=== PATIENT | male | born 1940 | race Caucasian/White ===

== ENCOUNTER 2016-05-28 14:25 | Emergency (ER) | payer OTHER ==
[~2016-05-28] VITALS: Ht 180.3 cm; Wt 86.2 kg
[~2016-05-28 14:25] MED LIST: COLCHICINE0.6 MG PO; MOBIC7.5 MG PO; PREDNICOT20 MG PO; TRAMADOL50 MG PO
[2016-05-28] MEDS ORDERED: ATORVASTATIN CA80 M1 PO (15:11)
[2016-05-28] MEDS ORDERED: GLUCOPHAGE1000 M1 PO (15:11)
--- NOTE | 2016-05-28 15:11 | RADIOLOGY REPORT ---
EXAMINATION: XR ANKLE, RIGHT CLINICAL INFORMATION: Twisted right ankle. COMPARISON: Right foot radiographs 10/31/2015. TECHNIQUE: AP, lateral, and mortise views of the right ankle. FINDINGS: There is an acute nondisplaced horizontally oriented fracture through the medial malleolus and a nondisplaced obliquely oriented fracture through the lateral malleolus. No dislocation. This pattern of acute fractures is consistent with an eversion mechanism of injury. Mild associated soft tissue swelling. Minimal calcaneal spurring is visualized on lateral projection. IMPRESSION: There is an acute nondisplaced bimalleolar fracture consistent with an eversion mechanism of injury. No dislocation.
[2016-05-28] MEDS ORDERED: RANEXA1000 M1 PO (15:12)
[2016-05-28] MEDS ORDERED: ATENOLOL25 M1 PO (15:12)
[2016-05-28] MEDS ORDERED: BICALUTAMIDE50 M1 PO (15:13)
[2016-05-28] MEDS ORDERED: BAYER CHEWABLE81 MG PO (15:13)
[2016-05-28] MEDS ORDERED: PLAVIX75 M1 PO (15:13)
--- NOTE | 2016-05-28 15:15 | ED ANKLE/FOOT INJURY COMPLAINT ---
History of Present Illness General Chief Complaint: Foot or Ankle Injury Stated Complaint: R FT INJURY Source: patient, family Exam Limitations: no limitations Vital Signs & Intake/Output Vital Signs & Intake/Output ED Intake and Output 05/29 0000 05/28 1200 Intake Total Output Total Balance Patient 190 lb Weight Allergies Uncoded Allergies: INGREDIENT: NO KNOWN - NO KNOWN DRUG ALLERGY (05/04/10) Reconcile Medications Amlodipine Besylate 5 MG TABLET 1 TAB PO DAILY HEART HEALTH (Reported) Aspirin (Gricel Chewable Aspirin) 81 MG TAB.CHEW 1 TAB PO DAILY HEART HEALTH ( Reported) Atenolol 25 MG TABLET 1 TAB PO DAILY HEART HEALTH (Reported) Atorvastatin Calcium 80 MG TABLET 1 TAB PO DAILY HEART HEALTH (Reported) Bicalutamide 50 MG TABLET 1 TAB PO DAILY PROSTATE (Reported) Clopidogrel Bisulfate (Plavix) 75 MG TABLET 1 TAB PO DAILY HEART HEALTH ( Reported) Colchicine 0.6 MG TAB 1 TAB PO AD GOUT 1-2 TABS EVERY 1 HOUR FOR 7 HOURS UNTIL PAIN GOES AWAY OR THERE IS ANY N/V, DIARRHEA/ABDOMINAL PAIN Meloxicam (Mobic) 7.5 MG TAB 1 TAB PO DAILY gout Metformin HCl (Glucophage) 1,000 MG TABLET 1 TAB PO BID DM (Reported) Prednisone (Prednicot) 20 MG TAB 1 TAB PO DAILY GOUT Ranolazine (Ranexa) 1,000 MG TAB.ER.12H 1 TAB PO DAILY HEART HEALTH ( Reported) TRAMADOL HCL (Tramadol) 50 MG TAB 1 TAB PO Q8P PRN BREATH THROUGH PAIN Triage Note: PT STATES THAT HE TRIPPED GOING DOWN RAMP AT HOME AND THAT HE TWISTED HIS R ANKLE. PT AMBULATED TO TRIAGE WITH CANE, SWELLING NOTED. PT REFUSES PAIN MEDS AND ASSISTED INTO WHEEL CHAIR Triage Nurses Notes Reviewed? yes HPI: This patient is a 76-year-old male with a past medical history including diabetes and peripheral neuropathy resented to the emergency department today accompanied by his daughter for evaluation of right ankle pain. The patient reported that he was walking outside today when he slipped down a ramp and, "my foot went underneath me." He reported that he felt a, "crunch." The patient is denying any pain but reported, "I have neuropathy so I can't really feel anything." He reported swelling of his ankle. The patient denied any knee or hip pain. He denied any head strike or loss of consciousness. (DARRICK GOFF PA-C) Past History Travel History Traveled to [place] past 21 day No Medical History Any Pertinent Medical History? see below for history Neurological: NONE EENT: NONE Cardiovascular: hypertension, hyperlipidemia Respiratory: NONE Gastrointestinal: NONE Hepatic: NONE Renal: NONE Musculoskeletal: chronic back pain Psychiatric: NONE Endocrine: NONE Blood Disorders: NONE Cancer(s): colon/rectal cancer, prostate cancer, SKIN CANCER BDR/Reproductive: NONE Influenza Vaccine: 01/26/08 Surgical History Surgical History: non-contributory Psychosocial History Who do you live with Patient/Self Services at Home None What is your primary language Irish Tobacco Use: Never used ETOH Use: denies use Illicit Drug Use: denies illicit drug use Family History Hx Contributory? No (DARRICK GOFF PA-C) Review of Systems Review of Systems Constitutional: Reports: no symptoms. EENTM: Reports: no symptoms. Respiratory: Reports: no symptoms. Cardiovascular: Reports: no symptoms. GI: Reports: no symptoms. Musculoskeletal: Reports: see HPI. Skin: Reports: no symptoms. Neurological/Psychological: Reports: see HPI. All Other Systems: Reviewed and Negative (DARRICK GOFF PA-C) Physical Exam Physical Exam Leg/Knee/Thigh Left: normal range of motion, normal inspection Comments: Well-developed well-nourished person in no acute distress HEENT: Normal EENT exam, head normocephalic/atraumatic, moist mucous membranes Neck: Full range of motion Back: Normal inspection Respiratory: No respiratory distress. Speaking in full sentences Right ankle/foot: Edema noted to bilateral malleoli. No overlying ecchymosis or erythema. Decreased sensation to the foot. Dorsalis pedis and posterior tibialis pulses 1+. Capillary refill less than 2 seconds. Range of motion at the ankle limited due to pain. Mild tenderness to palpation over bilateral malleoli Neuro: Alert oriented x3, cranial nerves II through XII grossly intact. Skin: No appreciable rash on exposed skin, skin is warm and dry. Psych: Mood and affect is normal (DARRICK GOFF PA-C) Progress Differential Diagnosis: DVT, CHF, arterial insufficiency, cellulitis, septic arthritis, gout, fracture, dislocation, sprain, contusion, compartmental syndrome Plan of Care: 05/28/2016 3:49:31 PM: Discussed this patient with on-call orthopedist, Dr. Mcleod. He would like this patient in a posterior and U-splint. We will ambulate this patient as he has tolerance. If he is unable to tolerate ambulation in the splint, he may need to be admitted. Discussed this patient with Dr. Concepcion. 05/28/2016 5:32:46 PM: I again discussed this patient with Dr. Mcleod. He would like this patient to remain nonweightbearing. I discussed this with the patient and his daughter. The patient will be staying at home with his daughter instead of by himself. She would like to take him home this evening. I discussed the option for admission as this patient will have a hard time remaining nonweightbearing. She would like to take him home anyways. She will call Dr. Mcleod in the morning. She reported that they have crutches at home and he continues a urine also he does not need to get up to go to the bathroom. She reported that she will make sure that he remains nonweightbearing. Instructed her to return the patient to the emergency department if anything worsens. Diagnostic Imaging: Viewed by Me: Radiology Read. Discussed w/RAD: Radiology Read. Radiology Impression: PATIENT: MARTIN MALDONADO PRESENT AGE: 76 PATIENT ACCOUNT NO: [id number] : 40 LOCATION: [facility] ORDERING PHYSICIAN: MARIA VICTORIA HUBBARD DO SERVICE DATE: 05/28/16 EXAM TYPE: RAD - XRY-ANKLE 3 OR MORE VIEWS R EXAMINATION: XR ANKLE, RIGHT CLINICAL INFORMATION: Twisted right ankle. COMPARISON: Right foot radiographs 10/31/2015. TECHNIQUE: AP, lateral, and mortise views of the right ankle. FINDINGS: There is an acute nondisplaced horizontally oriented fracture through the medial malleolus and a nondisplaced obliquely oriented fracture through the lateral malleolus. No dislocation. This pattern of acute fractures is consistent with an eversion mechanism of injury. Mild associated soft tissue swelling. Minimal calcaneal spurring is visualized on lateral projection. IMPRESSION: There is an acute nondisplaced bimalleolar fracture consistent with an eversion mechanism of injury. No dislocation. DICTATED BY: JOHANA TABOR MD DATE/TIME DICTATED:1504 DATA ANALYST ETL DEVELOPER:CLAIRE DATE/TIME TRANSCRIBED:02/01/17 / 1505 CONFIDENTIAL, DO NOT COPY WITHOUT APPROPRIATE AUTHORIZATION. <Electronically signed in Other Vendor System> SIGNED BY: LEANDER IBARRA,JOHANA Delgado 05/28/16 0651 (DARRICK GOFF PA-C) Departure Departure Disposition: HOME OR SELF CARE Condition: Stable Clinical Impression Primary Impression: Bimalleolar ankle fracture Qualifiers: Encounter type: initial encounter Fracture type: closed Laterality: right Qualified Code: S82.841A - Displaced bimalleolar fracture of right lower leg, initial encounter for closed fracture Referrals: BLUE IBARRA,GARY KOWALSKI MD,JENNY Mason (PCP/Family) Additional Instructions: Please remain nonweightbearing; do not put weight on this foot at any time. Use your crutches at home if you need them. May take [id number] Tylenol for pain. Elevate your ankle when possible. Ice the area for 15-20 minutes, 3-4 times a day. You must keep the splint in place at all times. Do not get the splint wet. Please call Gary Mcleod MD first thing tomorrow morning to schedule a follow-up appointment. Return to the emergency department for any worsening symptoms or concerns. Departure Forms: Customer Survey General Discharge Information (DARRICK GOFF PA-C) PA/INVOICING MACHINE OPERATOR Co-Sign Statement Statement: ED Attending supervision documentation- [X] I saw and evaluated the patient. I have also reviewed all the pertinent lab results and diagnostic results. I agree with the findings and the plan of care as documented in the PA's/INVOICING MACHINE OPERATOR's documentation. [X] I have reviewed the ED Record and agree with the PA's/INVOICING MACHINE OPERATOR's documentation. [] Additions or exceptions (if any) to the PAs/INVOICING MACHINE OPERATOR's note and plan are summarized below: [] (CARLOS IBARRA,REEMA) Procedures Splinting Location: RIGHT ANKLE Manual Alignment Performed: No Hand-Made Type: orthoglass Splint: posterior walking, AND U-SPLINT Splint Applied By: splint applied by me Pre-Proc Neuro Vasc Exam: normal Post-Proc Neuro Vasc Exam: normal Progress: Patient tolerated the procedure well. (DARRICK GOFF PA-C)
[2016-05-28] MEDS ORDERED: AMLODIPINE BESYL5 M1 PO (15:16)
[2016-05-28 17:40] VITALS: BP 182/86
== END 2016-05-28 17:49 ==
LOC: ERH 14:25
DX: S82.841A Displaced bimalleolar fracture of right lower leg, initial encounter for closed fracture (principal); X58.XXXA Exposure to other specified factors, initial encounter
CPT/HCPCS: 73610-RT

== ENCOUNTER 2017-11-04 09:59 | Emergency (ER) | payer OTHER ==
[~2017-11-04] VITALS: Ht 180.3 cm; Wt 73.9 kg
[~2017-11-04 09:59] MED LIST changes: +AMLODIPINE BESYL5 M1 PO; +ATENOLOL25 M1 PO; +ATORVASTATIN CA80 M1 PO; +BAYER CHEWABLE81 MG PO; +BICALUTAMIDE50 M1 PO; +GLUCOPHAGE1000 M1 PO; +PLAVIX75 M1 PO; +RANEXA1000 M1 PO
--- NOTE | 2017-11-04 10:38 | ED GENERAL ADULT ---
History of Present Illness General Chief Complaint: General Adult Stated Complaint: PAIN IN BACK AND HIPS, SWOLLEN FEET Source: patient, old records Exam Limitations: no limitations Allergies Coded Allergies: aspirin (FEEL BAD 11/04/17) Reconcile Medications Atorvastatin Calcium 80 MG TABLET 1 TAB PO DAILY HEART HEALTH (Reported) Clopidogrel Bisulfate (Plavix) 75 MG TABLET 1 TAB PO DAILY HEART HEALTH ( Reported) Furosemide 20 MG TABLET 1 TAB PO DAILY WATER RETENTION (Reported) Gabapentin 600 MG TABLET 1 TAB PO TID PAIN (Reported) Lidocaine 5 % ADH..PATCH 1 PAT TOP DAILY PAIN (Reported) Lisinopril 2.5 MG TABLET 1 TAB PO DAILY HEART (Reported) Metformin HCl (Glucophage) 1,000 MG TABLET 1 TAB PO BID DM (Reported) Metoprolol Succinate 50 MG TAB.ER.24H 1 TAB PO DAILY HEART (Reported) Mirtazapine 15 MG TABLET 0.5 TAB PO QPM SLEEP (Reported) Nitroglycerin 0.4 MG TAB.SUBL 1 TAB SL DAILY PRN CHEST PAIN (Reported) 1st sign of attack; may repeat every 5 minutes until relief; if pain persists after 3 tablets in 15 minutes, prompt medical att Oxycodone HCl 10 MG TABLET 1 TAB PO BIDP PRN PAIN (Reported) Ranolazine (Ranexa) 1,000 MG TAB.ER.12H 1 TAB PO DAILY HEART HEALTH ( Reported) Tamsulosin HCl 0.4 MG CAP.ER.24H 1 CAP PO DAILY BPH (Reported) Triage Note: B/L LEG EDEMA X 2 WEEKS. STATES HE FEELS SOB ONCE IN A WHILE. PT ALSO C/O BURNING SENSATION IN HIS LOWER SPINE. DENIES RECENT INJURY. STATES WHEN HE WAS IN REHAB A FEW MONTHS AGO HE FELL BACK ON HIS HEAD AND NOW HE GETS DIZZY SPELLS ONCE IN A WHILE Triage Nurses Notes Reviewed? yes Onset: Gradual Duration: week(s): Timing: recent history Injury Environment: home Severity: moderate HPI: 77-year-old male with history of hypertension, CAD, chronic back pain presents emergency department complaining of swelling to her lower legs for the past few weeks. Patient states that he broke his right ankle several months ago and has been having issues with swelling since the fracture. Patient was seen orthopedic physician out of [place] who was checking his ankle with repeat x- rays and casting. Patient states that he stopped going to this doctor because he got tired of traveling so far and getting so many xrays and casts. Patient was at rehab in [facility], [place] for weeks and was discharged home a few weeks ago. Patient has visiting health aids and visiting PT. He states that he still cannot walk well with his walker despite continued PT. He has almost fallen several times. PAtient reports a fall while he was at rehab about 1 month ago, he fell backward out of his wheelchair and hit his head, declined medical evaulation at that time. The patient reports intermittent dizziness when standing since this injury. Patient also reports bilateral lower back pain. (Nichole Phillips) Vital Signs & Intake/Output Vital Signs & Intake/Output Vital Signs Date Time Temp Pulse Resp B/P B/P Pulse O2 O2 Flow FiO2 Mean Ox Delivery Rate 11/04 1416 97.7 66 20 120/70 99 Room Air 11/04 1200 97.7 65 20 167/76 99 Room Air 11/04 1005 97.7 71 20 103/69 97 Room Air (Maria Eugenia IBARRA,Bridger Carver) Past History Travel History Traveled to [facility] past 21 day No Medical History Any Pertinent Medical History? see below for history Neurological: NONE EENT: NONE Cardiovascular: CAD, hypertension, hyperlipidemia Respiratory: NONE Gastrointestinal: NONE Hepatic: NONE Renal: NONE Musculoskeletal: chronic back pain Psychiatric: NONE Endocrine: NONE Blood Disorders: NONE Cancer(s): colon/rectal cancer, prostate cancer, SKIN CANCER ACTIVITY SPECIALIST/Reproductive: NONE Surgical History Surgical History: non-contributory Psychosocial History Who do you live with Patient/Self Services at Home None What is your primary language Ethiopian Tobacco Use: Quit >30 days ago ETOH Use: occasional use Illicit Drug Use: denies illicit drug use Family History Hx Contributory? No (Nichole Phillips) Review of Systems Review of Systems Constitutional: Reports: no symptoms. EENTM: Reports: no symptoms. Respiratory: Reports: no symptoms. Cardiovascular: Reports: no symptoms. GI: Reports: no symptoms. Genitourinary: Reports: no symptoms. Musculoskeletal: Reports: see HPI. Skin: Reports: no symptoms. Neurological/Psychological: Reports: see HPI. Hematologic/Endocrine: Reports: no symptoms. Immunologic/Allergic: Reports: no symptoms. All Other Systems: Reviewed and Negative (Nichole Phillips) Physical Exam Physical Exam General Appearance: well developed/nourished, no apparent distress, alert, awake Head: atraumatic, normal appearance Eyes: Bilateral: normal appearance, PERRL, EOMI. Ears, Nose, Throat: normal pharynx, hearing grossly normal Neck: normal inspection, supple, full range of motion, no midline tenderness Respiratory: normal breath sounds, no respiratory distress, lungs clear Cardiovascular: regular rate/rhythm, normal peripheral pulses Peripheral Pulses: 2+ dorsalis pedis (R), 2+ dorsalis pedis (L) Back: normal inspection, normal range of motion, mild lumbar tenderness and bilateral lower back/sacral tenderness Extremities: moderate swelling to right lower leg and ankle, tenderness to calf mild swelling to left lower leg Neurologic/Psych: awake, alert, oriented x 3, crude tester II-XII nml as tested Skin: intact, normal color, warm/dry Core Measures ACS in differential dx? No CVA/TIA Diagnosis: No Sepsis Present: No Sepsis Focused Exam Completed? No (Alicia GOMEZ,Nichole Carmen) Progress Differential Diagnoses I considered the following diagnoses in my evaluation of the patient: [DVT, ICH, muscle strain, venous stasis, degenerative disc disease, electrolyte abnormality , anemia] Diagnostic Imaging: Viewed by Me: Radiology Read, CT Scan, Ultrasound. Discussed w/RAD: Radiology Read, CT Scan, Ultrasound. Radiology Impression: PATIENT: MARTIN MALDONADO PRESENT AGE: 77 PATIENT ACCOUNT NO: [id number] : 40 LOCATION: [facility] ORDERING PHYSICIAN: Nichole GOMEZ SERVICE DATE: 11/04/17 EXAM TYPE: RAD - XRY-AP PELVIS; XRY-LUMBOSACRAL SPINE 4 VIEWS EXAMINATION: XR PELVIS XR LUMBOSACRAL SPINE CLINICAL INFORMATION: Bilateral posterior hip pain. Evaluate for fracture. Lumbar tenderness. Evaluate for lumbar fracture, degenerative disc disease. COMPARISON: Lumbar spine CT, 12/22/2012 TECHNIQUE: Lumbosacral spine, 4 views Pelvis, AP view FINDINGS: Lumbosacral spine: Status post posterior instrumented fusion of L3-L5, L4 and L5 laminectomy and placement of intervertebral spacer/graft at L3-L4. Chronic multilevel disc degeneration, facet arthropathy and chronic, approximately 0.5 cm grade 1 anterolisthesis of L4 on L5. Chronic, minimal degenerative retrolisthesis at L5-S1. Findings include chronic moderate degenerative disc disease at L5-S1.The transpedicular screws and fusion rods at L3-L5 are intact. Posterolateral bone graft is noted. No acute fracture or traumatic subluxation in the degenerated, postoperative spine. Dense atherosclerotic calcification of the aorta abdominal aorta and iliac arteries and stenting of the right common iliac/external iliac arteries. Pelvis: The osseous pelvic ring is intact. No suspicious lytic or blastic bone lesion. Articular cartilage space of each hip is maintained. Mild degenerative subarticular sclerosis/osteophytosis of the hips. There are 3 intact cannulated fixation screws traversing the right femoral neck without acute fracture or femoral osteonecrosis. There are radiation therapy seeds of the prostate gland. Santos catheter projects over the midline of the lower pelvis. IMPRESSION: 1. No acute femoral fracture. 2. Multilevel facet arthropathy and disc degeneration of the lumbar spine, status post surgical spinal fusion at L3-L5. Spinal fusion hardware is intact. Within the lumbar spine, there is chronic grade 1 anterolisthesis at L4-L5 and chronic, minimal degenerative retrolisthesis at L5- S1. No acute fracture or traumatic subluxation. DICTATED BY: Ernesto Nguyen MD DATE/TIME DICTATED:11/04/171222 GAME DESIGN INSTRUCTOR:CLAIRE DATE/TIME TRANSCRIBED:11/04/171222 CONFIDENTIAL, DO NOT COPY WITHOUT APPROPRIATE AUTHORIZATION. <Electronically signed in Other Vendor System> SIGNED BY: Ernesto Nguyen MD 11/04/17 1233, PATIENT: MARTIN MALDONADO PRESENT AGE: 77 PATIENT ACCOUNT NO: [id number] : 40 LOCATION: [facility] ORDERING PHYSICIAN: Nichole GOMEZ SERVICE DATE: 11/04/17 EXAM TYPE: CAT - CT CERV SPINE WO IV CONTRAST; CT HEAD WO IV CONTRAST EXAMINATION: CT HEAD W/O IV CONTRAST CT CERVICAL SPINE W/O IV CONTRAST CLINICAL INFORMATION: Status post fall weeks ago with dizziness. Evaluate for intracranial hemorrhage and fracture. COMPARISON: C-spine CT, 12/22/2012 TECHNIQUE: Head - Contiguous axial imaging of the head was performed from the skull base to the vertex without the administration of intravenous contrast, and axial images are reconstructed at 0.625 mm, 2.5 mm and 5 mm slice thickness. Cervical spine - A volumetric, helical CT acquisition of the cervical spine was obtained without contrast; in addition to the standard set of axial images, multiplanar reformatted images were provided in the coronal and sagittal imaging planes. DLP : 914 mGy-cm (total) FINDINGS: HEAD: No evidence of intracranial hemorrhage, major vascular territory infarction, focal mass effect or midline shift. Phillip to white matter differentiation is well preserved. Atherosclerotic calcification of cavernous carotid arteries and vertebral arteries. There are no extra-axial fluid collections. Mild atrophy of cerebral hemispheres with commensurate prominence of ventricles and sulci. No hydrocephalus. The calvarium is intact and the visualized paranasal sinuses are clear. Chronic opacification of some of the left mastoid air cells. The temporomandibular joints are unremarkable. The visualized orbits and globes are intact. CERVICAL SPINE: Mild dextrocurvature and chronic loss of lordotic curvature of the cervical spine. The occipital condyles, C1 and C2 lateral masses, dens and atlantodental articulation are intact. Chronic degenerative osseous spurring and mild subcortical cystic change of the atlantodental articulation. There is calcium deposition (calcium pyrophosphate dihydrate crystal deposition) of the transverse ligament posterior to the dens. The vertebral body heights are maintained. There is chronic multilevel facet osteoarthritis, worst on the left at C2-C3, C3-C4 and C4-C5. Multilevel uncovertebral joint hypertrophy and chronic left-sided neural foraminal stenosis at C2-C3, C3-C4 and C4-C5. Chronic degenerative disc space narrowing with disc bulge and small posterior disc osteophyte complexes of C4- C5. At C5-C6, there is a chronic central disc herniation that chronically compresses the ventral surface of the cervical spinal cord. There is chronic, 0.2 cm anterolisthesis of C3 on C4, unchanged compared to 12/22/2012. There is ligamentum flavum hypertrophy at C5-C6 and C6-C7. No acute fracture, traumatic subluxation or prevertebral soft tissue swelling in the degenerated cervical spine. Within the right thyroid lobe, there is a stable 1 cm nodule with peripheral rim calcification. Atherosclerotic calcifications of carotid arteries. At the lung apices, posteriorly layering pleural effusions are seen ( left larger than right). IMPRESSION: 1. No acute intracranial pathology. 2. No acute fracture or traumatic subluxation in the degenerated cervical spine. 3. Of the multiple chronic findings in the cervical spine, abnormalities include an old central disc herniation at C5-C6. The herniated disc chronically compresses the ventral surface of the spinal cord at this level. Other chronic findings include multilevel facet arthropathy, uncovertebral joint hypertrophy and left- sided neural foraminal stenosis at C2-C3, C3-C4 and C4-C5. 4. The 1 cm rim calcified nodule of the right thyroid gland remains stable compared to 2012. 5. Bilateral pleural effusions. DICTATED BY: Ernesto Nguyen MD DATE/TIME DICTATED:11/04/171150 GAME DESIGN INSTRUCTOR:CLAIRE DATE/TIME TRANSCRIBED:1150 CONFIDENTIAL, DO NOT COPY WITHOUT APPROPRIATE AUTHORIZATION. < Electronically signed in Other Vendor System> SIGNED BY: Ernesto Nguyen MD 11/04/17 121, PATIENT: MARTIN MALDONADO PRESENT AGE: 77 PATIENT ACCOUNT NO: [id number] : 40 LOCATION: [facility] ORDERING PHYSICIAN: Nichole GOMEZ SERVICE DATE: 11/04/17 EXAM TYPE: US - US-EXT BILAT VENOUS DOPPLER EXAMINATION: US TRIPLEX OF LOWER EXTREMITIES, BILATERAL CLINICAL INFORMATION: Bilateral lower extremity edema COMPARISON: None TECHNIQUE : Color-flow triplex imaging with spectral analysis and compression Doppler were performed on the lower extremities. FINDINGS: Respiratory variation, normal compression and augmented flow are noted throughout the lower extremities. The visualized common femoral vein, superficial femoral vein, profunda femoral vein, popliteal vein and midcalf peroneal and posterior tibial venous segments show no evidence of deep venous thrombosis. There is a small amount of thrombus seen in the right great saphenous vein near the junction with no extension into the deep venous system. There is no Williamson's cyst. IMPRESSION: No evidence of deep venous thrombosis involving the bilateral lower extremities. Superficial thrombophlebitis with some thrombus in the right great saphenous vein without extension into the deep system. DICTATED BY: Ayan Thornton MD DATE/TIME DICTATED:11/04/171301 GAME DESIGN INSTRUCTOR:CLAIRE DATE/TIME TRANSCRIBED:1301 CONFIDENTIAL, DO NOT COPY WITHOUT APPROPRIATE AUTHORIZATION. < Electronically signed in Other Vendor System> SIGNED BY: Ayan Thornton MD 11/04/17 1316 CXR Impression: PATIENT: MARTIN MLADONADO PRESENT AGE: 77 PATIENT ACCOUNT NO: [id number] : 40 LOCATION: [facility] ORDERING PHYSICIAN: Nichole GOMEZ SERVICE DATE: 11/04/17-1037 EXAM TYPE: RAD - XRY-CHEST XRAY, TWO VIEWS EXAMINATION: XR CHEST CLINICAL INFORMATION: edema. Evaluate for CHF. COMPARISON: Previous chest x-ray November 2008 TECHNIQUE: 2 views of the chest were obtained. FINDINGS: The cardiac silhouette does not appear enlarged. There are post-CABG changes. Hilar and mediastinal contours are unremarkable. There is increased attenuation in the right upper lobe in the right paratracheal region and overlying the right anterior first rib questionable for pneumonitis or small pneumonia. Follow-up chest x-ray is recommended. If radiographic abnormality persists, follow-up chest CT scan should be considered. The lungs are otherwise clear. There is no pleural effusion. There are degenerative changes of the spine. There is a broken inferior median sternotomy wire.. IMPRESSION: No evidence of CHF. Increased attenuation in the right upper lobe questionable for pneumonitis or small pneumonia. Chest x-ray follow-up recommended. If radiographic abnormality persists, chest CT scan would be recommended. DICTATED BY: Xi Hubbard MD DATE/TIME DICTATED:11/04/171226 GAME DESIGN INSTRUCTOR:CLAIRE DATE/TIME TRANSCRIBED:11/04/171226 CONFIDENTIAL, DO NOT COPY WITHOUT APPROPRIATE AUTHORIZATION. <Electronically signed in Other Vendor System> SIGNED BY: Xi Hubbard MD 11/04/17 1233 Initial ED EKG: sinus rhythm @77bpm, ST changes with t wave inversions Prior EKG: changed (05/02/10) (Alicia GOMEZ,Nichole Carmen) Plan of Care: Orders Procedure Date/time Status TROPONIN LEVEL 11/04 1037 Complete COMPREHENSIVE METABOLIC PANEL 11/04 1037 Complete CBC WITHOUT DIFFERENTIAL 11/04 1037 Complete B-TYPE NATRIURETIC PEP (BNP) 11/04 1037 Complete EKG 11/04 1037 Active Laboratory Tests 11/04/17 1200: Anion Gap 12, Estimated GFR 45 L, BUN/Creatinine Ratio 15.3, Glucose 127 H, Calcium 9.0, Total Bilirubin 0.8, AST 40, ALT 31, Alkaline Phosphatase 106, Troponin I 0.11 *H, Vor-O-Jxenmaqvqgd Pept 02699 H, Total Protein 6.4, Albumin 3.2 L, Globulin 3.2, Albumin/Globulin Ratio 1.0 L, CBC w Diff NO MAN DIFF REQ, RBC 3.32 L, MCV 93.8, MCH 31.9 H, MCHC 34.0, RDW 16.4 H, MPV 7.0 L, Gran % 70.4, Lymphocytes % 18.7 L, Monocytes % 6.8, Eosinophils % 3.0, Basophils % 1.1 , Absolute Granulocytes 4.4, Absolute Lymphocytes 1.2, Absolute Monocytes 0.4, Absolute Eosinophils 0.2, Absolute Basophils 0.1 Patient had right bimalleolar ankle fracture on 05/28/16. He reports chronic issues relating to this fracture. Spoke with properties supervisor Dr. Mccullough regarding this patient - patient Was seen at [facility] about one month ago and admitted for pneumonia with positive troponin. At that time his troponin was 0.3. cr was 1.62. I discussed the patient's labs from today as well as his EKG findings. Dr. Mccullough sent a copy of patient's EKG from August 2017. There are ST changes in lateral leads today compared to EKG from August. Dr. Mccullough agrees the plan for having patient stay in the hospital for telemetry monitoring however I informed Dr. Mccullough at the patient's decision to sign out AMA. Dr. Mccullough states that the patient should follow-up in the office tomorrow if he refuses admission. Patient was seen and evaluated by Dr. Del Cid. Based on his EKG changes and abnormal labs he was informed that leaving AGAINST MEDICAL ADVICE could result in heart attack and . Patient understands the risks and chooses to leave the emergency department at this time. (Alicia GOMEZ,Nichole Carmen) (Maria Eugenia IBARRA,Bridger Carver) Departure Departure Disposition: LEFT AGAINST MEDICAL ADVICE Condition: Stable Clinical Impression Primary Impression: Pedal edema Secondary Impressions: Acute electrocardiogram changes, Elevated troponin Referrals: Miguel IBARRA,Supa Bryant MD,Sukumar Mason (PCP/Family) Additional Instructions: Your signing out AGAINST MEDICAL ADVICE. Follow-up with the properties supervisor tomorrow, call the office to make an appointment for tomorrow. Return if worsening symptoms or concerns. Please note that there might be incidental findings in your evaluation that are unrelated to the current emergency department visit. Please notify your primary care doctor about this emergency department visit in order to obtain and review all of the testing performed so that these incidental findings can be monitored as needed. If you had an x-ray performed, please understand that some fractures may not be seen on the initial set of x-rays. If your symptoms persist you might need a repeat set of x-rays to check for such a fracture. If you had a laceration evaluated, please understand that foreign bodies such as glass or wood may not be visible to the naked eye or on plain x-rays. If the wound becomes red, swollen, increasingly more painful or if there is any drainage from the wound, please have it reevaluated by a physician for the possibility of a retained foreign body. If you're unable to follow up as outlined in the discharge instructions please return to the emergency department. Thank you for choosing the [facility] Emergency Department for your care. It was a pleasure to serve you today. Departure Forms: Customer Survey General Discharge Information (Nichole Phillips) PA/VETERINARY ATTENDANT Co-Sign Statement Statement: ED Attending supervision documentation- [X] I saw and evaluated the patient. I have also reviewed all the pertinent lab results and diagnostic results. I agree with the findings and the plan of care as documented in the PA's/VETERINARY ATTENDANT's documentation. Patient presents for evaluation of primarily right knee pain among other issues. Physical examination reveals a comfortable appearing gentleman in no acute respiratory distress. I have had a lengthy discussion with this patient regarding his elevated troponin and its implications. Patient is aware that this might reflect an issue with his heart that could potentially lead to heart attack and . He remains adamant in discharge. [] I have reviewed the ED Record and agree with the PA's/VETERINARY ATTENDANT's documentation. [] Additions or exceptions (if any) to the PAs/VETERINARY ATTENDANT's note and plan are summarized below: [] (Maria Eugenia IBARRA,Bridger Carver) Critical Care Note Critical Care Note Critical Care Time: non-applicable (Nichole Phillips)
--- NOTE | 2017-11-04 12:11 | CT SCAN REPORT ---
EXAMINATION: CT HEAD W/O IV CONTRAST CT CERVICAL SPINE W/O IV CONTRAST CLINICAL INFORMATION: Status post fall weeks ago with dizziness. Evaluate for intracranial hemorrhage and fracture. COMPARISON: C-spine CT, 12/22/2012 TECHNIQUE: Head - Contiguous axial imaging of the head was performed from the skull base to the vertex without the administration of intravenous contrast, and axial images are reconstructed at 0.625 mm, 2.5 mm and 5 mm slice thickness. Cervical spine - A volumetric, helical CT acquisition of the cervical spine was obtained without contrast; in addition to the standard set of axial images, multiplanar reformatted images were provided in the coronal and sagittal imaging planes. DLP: 914 mGy-cm (total) FINDINGS: HEAD: No evidence of intracranial hemorrhage, major vascular territory infarction, focal mass effect or midline shift. Phillip to white matter differentiation is well preserved. Atherosclerotic calcification of cavernous carotid arteries and vertebral arteries. There are no extra-axial fluid collections. Mild atrophy of cerebral hemispheres with commensurate prominence of ventricles and sulci. No hydrocephalus. The calvarium is intact and the visualized paranasal sinuses are clear. Chronic opacification of some of the left mastoid air cells. The temporomandibular joints are unremarkable. The visualized orbits and globes are intact. CERVICAL SPINE: Mild dextrocurvature and chronic loss of lordotic curvature of the cervical spine. The occipital condyles, C1 and C2 lateral masses, dens and atlantodental articulation are intact. Chronic degenerative osseous spurring and mild subcortical cystic change of the atlantodental articulation. There is calcium deposition (calcium pyrophosphate dihydrate crystal deposition) of the transverse ligament posterior to the dens. The vertebral body heights are maintained. There is chronic multilevel facet osteoarthritis, worst on the left at C2-C3, C3-C4 and C4-C5. Multilevel uncovertebral joint hypertrophy and chronic left-sided neural foraminal stenosis at C2-C3, C3-C4 and C4-C5. Chronic degenerative disc space narrowing with disc bulge and small posterior disc osteophyte complexes of C4-C5. At C5-C6, there is a chronic central disc herniation that chronically compresses the ventral surface of the cervical spinal cord. There is chronic, 0.2 cm anterolisthesis of C3 on C4, unchanged compared to 12/22/2012. There is ligamentum flavum hypertrophy at C5-C6 and C6-C7. No acute fracture, traumatic subluxation or prevertebral soft tissue swelling in the degenerated cervical spine. Within the right thyroid lobe, there is a stable 1 cm nodule with peripheral rim calcification. Atherosclerotic calcifications of carotid arteries. At the lung apices, posteriorly layering pleural effusions are seen (left larger than right). IMPRESSION: 1. No acute intracranial pathology. 2. No acute fracture or traumatic subluxation in the degenerated cervical spine. 3. Of the multiple chronic findings in the cervical spine, abnormalities include an old central disc herniation at C5-C6. The herniated disc chronically compresses the ventral surface of the spinal cord at this level. Other chronic findings include multilevel facet arthropathy, uncovertebral joint hypertrophy and left-sided neural foraminal stenosis at C2-C3, C3-C4 and C4-C5. 4. The 1 cm rim calcified nodule of the right thyroid gland remains stable compared to 12/14/2012. 5. Bilateral pleural effusions.
[2017-11-04] MEDS ORDERED: TAMSULOSIN HCL0.4 M1 PO (12:14)
[2017-11-04] MEDS ORDERED: FUROSEMIDE20 M1 PO (12:14)
[2017-11-04] MEDS ORDERED: NITROGLYCERIN0.4 M1 SL (12:14)
[2017-11-04] MEDS ORDERED: GABAPENTIN600 M1 PO (12:15)
[2017-11-04] MEDS ORDERED: LISINOPRIL2.5 M1 PO (12:15)
[2017-11-04] MEDS ORDERED: LIDOCAINE1 EACH TOP (12:16)
[2017-11-04] MEDS ORDERED: OXYCODONE HCL10 M2 PO (12:16)
[2017-11-04] MEDS ORDERED: METOPROLOL SUCC50 M2 PO (12:18)
[2017-11-04] MEDS ORDERED: MIRTAZAPINE15 M2 PO (12:19)
[2017-11-04 12:24] LABS: ABSOLUTE BASOPHIL COUNT 0.1 /CUMM (0.0-0.2); ABSOLUTE EOSINOPHIL COUNT 0.2 /CUMM (0.0-0.7); ABSOLUTE GRANULOCYTE CT 4.4 /CUMM (1.4-6.5); ABSOLUTE LYMPH COUNT 1.2 /CUMM (1.2-3.4); ABSOLUTE MONOCYTE COUNT 0.4 /CUMM (0.10-0.60); BASOPHIL % 1.1 % (0.0-2.0); GRANULOCYTE % 70.4 % (42.2-75.2); HEMATOCRIT 31.1 % (42-52); MEAN CORPUSCULAR HGB 31.9 PG (27.0-31.0); MEAN CORPUSCULAR VOLUME 93.8 FL (80.0-94.0); PLATELET COUNT 515 /CUMM (130-400); RBC DISTRIBUTION WIDTH 16.4 % (11.5-14.5); RED BLOOD CELL CT 3.32 /CUMM (4.70-6.10); WHITE BLOOD CELL COUNT 6.2 /CUMM (4.8-10.8)
--- NOTE | 2017-11-04 12:33 | RADIOLOGY REPORT ---
EXAMINATION: XR CHEST CLINICAL INFORMATION: edema. Evaluate for CHF. COMPARISON: Previous chest x-ray November 2008 TECHNIQUE: 2 views of the chest were obtained. FINDINGS: The cardiac silhouette does not appear enlarged. There are post-CABG changes. Hilar and mediastinal contours are unremarkable. There is increased attenuation in the right upper lobe in the right paratracheal region and overlying the right anterior first rib questionable for pneumonitis or small pneumonia. Follow-up chest x-ray is recommended. If radiographic abnormality persists, follow-up chest CT scan should be considered. The lungs are otherwise clear. There is no pleural effusion. There are degenerative changes of the spine. There is a broken inferior median sternotomy wire.. IMPRESSION: No evidence of CHF. Increased attenuation in the right upper lobe questionable for pneumonitis or small pneumonia. Chest x-ray follow-up recommended. If radiographic abnormality persists, chest CT scan would be recommended.
--- NOTE | 2017-11-04 12:33 | RADIOLOGY REPORT ---
EXAMINATION: XR PELVIS XR LUMBOSACRAL SPINE CLINICAL INFORMATION: Bilateral posterior hip pain. Evaluate for fracture. Lumbar tenderness. Evaluate for lumbar fracture, degenerative disc disease. COMPARISON: Lumbar spine CT, 12/22/2012 TECHNIQUE: Lumbosacral spine, 4 views Pelvis, AP view FINDINGS: Lumbosacral spine: Status post posterior instrumented fusion of L3-L5, L4 and L5 laminectomy and placement of intervertebral spacer/graft at L3-L4. Chronic multilevel disc degeneration, facet arthropathy and chronic, approximately 0.5 cm grade 1 anterolisthesis of L4 on L5. Chronic, minimal degenerative retrolisthesis at L5-S1. Findings include chronic moderate degenerative disc disease at L5-S1.The transpedicular screws and fusion rods at L3-L5 are intact. Posterolateral bone graft is noted. No acute fracture or traumatic subluxation in the degenerated, postoperative spine. Dense atherosclerotic calcification of the aorta abdominal aorta and iliac arteries and stenting of the right common iliac/external iliac arteries. Pelvis: The osseous pelvic ring is intact. No suspicious lytic or blastic bone lesion. Articular cartilage space of each hip is maintained. Mild degenerative subarticular sclerosis/osteophytosis of the hips. There are 3 intact cannulated fixation screws traversing the right femoral neck without acute fracture or femoral osteonecrosis. There are radiation therapy seeds of the prostate gland. Santos catheter projects over the midline of the lower pelvis. IMPRESSION: 1. No acute femoral fracture. 2. Multilevel facet arthropathy and disc degeneration of the lumbar spine, status post surgical spinal fusion at L3-L5. Spinal fusion hardware is intact. Within the lumbar spine, there is chronic grade 1 anterolisthesis at L4-L5 and chronic, minimal degenerative retrolisthesis at L5-S1. No acute fracture or traumatic subluxation.
--- NOTE | 2017-11-04 13:16 | ULTRASOUND REPORT ---
EXAMINATION: US TRIPLEX OF LOWER EXTREMITIES, BILATERAL CLINICAL INFORMATION: Bilateral lower extremity edema COMPARISON: None TECHNIQUE: Color-flow triplex imaging with spectral analysis and compression Doppler were performed on the lower extremities. FINDINGS: Respiratory variation, normal compression and augmented flow are noted throughout the lower extremities. The visualized common femoral vein, superficial femoral vein, profunda femoral vein, popliteal vein and midcalf peroneal and posterior tibial venous segments show no evidence of deep venous thrombosis. There is a small amount of thrombus seen in the right great saphenous vein near the junction with no extension into the deep venous system. There is no Williamson's cyst. IMPRESSION: No evidence of deep venous thrombosis involving the bilateral lower extremities. Superficial thrombophlebitis with some thrombus in the right great saphenous vein without extension into the deep system.
[2017-11-04 14:16] VITALS: BP 120/70
== END 2017-11-04 14:52 | disposition left against medical advice (07) ==
LOC: ERH 09:59
PROVIDERS: Physician Assistant
DX: R60.9 Edema, unspecified (principal); R94.31 Abnormal electrocardiogram [ECG] [EKG]; R77.8 Other specified abnormalities of plasma proteins
CPT/HCPCS: 71046; 72110; 72170; 93005; 93010; 93970

== ENCOUNTER 2017-12-02 11:42 | Inpatient (IN) | payer OTHER ==
[~2017-12-02] VITALS: Ht 180.3 cm; Wt 86.3 kg
[~2017-12-02 11:42] MED LIST changes: +GABAPENTIN600 M1 PO; +LASIX80 M1 PO; +LIDOCAINE1 EACH TOP; +LISINOPRIL2.5 M1 PO; +METOPROLOL SUCC50 M2 PO; +MIRTAZAPINE15 M2 PO; +NITROGLYCERIN0.4 M1 SL; +OXYCODONE HCL10 M2 PO; +TAMSULOSIN HCL0.4 M1 PO
--- NOTE | 2017-12-02 11:49 | ED AMS/SEIZURE/WEAK/DIZZY ---
History of Present Illness General Chief Complaint: Seizure Stated Complaint: S/P NEW ONSET SEIZURE AND WEAKNESS Source: family, old records, EMS Exam Limitations: clinical condition Vital Signs & Intake/Output Vital Signs & Intake/Output Vital Signs Date Time Temp Pulse Resp B/P B/P Pulse O2 O2 Flow FiO2 Mean Ox Delivery Rate 12/02 1856 98.1 115 18 102/60 96 Room Air 12/02 1854 95 Room Air 12/02 1823 100 Room Air 12/02 1745 97.8 103 18 103/65 99 Room Air 12/02 1640 98.1 82 18 108/62 100 Room Air 12/02 1456 97.7 108 18 94/66 96 Room Air 12/02 1423 98 Room Air 12/02 1217 97.4 100 18 122/56 99 Room Air Allergies Coded Allergies: cefadroxil (Intermediate, NAUSEA 12/02/17) magnesium (Intermediate, DIARRHEA 12/02/17) Reconcile Medications Atorvastatin Calcium 80 MG TABLET 1 TAB PO DAILY HEART HEALTH (Reported) Clopidogrel Bisulfate (Plavix) 75 MG TABLET 1 TAB PO DAILY HEART HEALTH ( Reported) Furosemide (Lasix) 80 MG TABLET 1 TAB PO DAILY WATER RETENTION (Reported) Metformin HCl (Glucophage) 1,000 MG TABLET 1 TAB PO BID DM (Reported) Nitroglycerin 0.4 MG TAB.SUBL 1 TAB SL DAILY PRN CHEST PAIN (Reported) 1st sign of attack; may repeat every 5 minutes until relief; if pain persists after 3 tablets in 15 minutes, prompt medical att Oxycodone HCl 10 MG TABLET 1 TAB PO BIDP PRN PAIN (Reported) Ranolazine (Ranexa) 1,000 MG TAB.ER.12H 1 TAB PO DAILY HEART HEALTH ( Reported) Triage Nurses Notes Reviewed? yes Onset: Abrupt Timing: recent history Severity: severe Severity Numbers: 10 HPI: Patient is a 77-year-old male with a past medical history of hypertension, COLON cancer with colon resection, chronic back pain currently on opiates, hyperlipidemia, CAD, DVT with lower extremity stents currently on Plavix, and which old records indicate in October he was evaluated here at [facility] in which old records indicate that there was concerned of EKG at the nares and elevated troponin however patient left AGAINST MEDICAL ADVICE. Patient's history is limited due to clinical presentation however family is here stating that yesterday she was in his normal state health where he is noted to have a baseline of generalized weakness and is non-ambulatory and family has been concerned over the past week of intermittent visual hallucinations of seeing COBRA'S AND people that aren't there over the past few days symptoms have worsened patient's had decreased by mouth intake and generalized weakness and fatigue however this morning the daughter who lives upstairs came down to make patient breakfast however he was noted to still be sleeping in which she returned to the patient's bedroom and noted a 20 SECOND episode of tonic-clonic seizures patient called EMS EMS arrived on scene noted patient to be mildly responsive however no apneas noted blood sugar was 180 No extremity weakness or slurred speech (Darshan Coffman) Past History Travel History Traveled to [place] past 21 day No Medical History Any Pertinent Medical History? see below for history Neurological: NONE EENT: NONE Cardiovascular: CAD, hypertension, hyperlipidemia Respiratory: NONE Gastrointestinal: NONE Hepatic: NONE Renal: NONE Musculoskeletal: chronic back pain Psychiatric: NONE Endocrine: NONE Blood Disorders: NONE Cancer(s): colon/rectal cancer, prostate cancer, SKIN CANCER CALL PERSON/Reproductive: NONE Surgical History Surgical History: non-contributory Psychosocial History Who do you live with Patient/Self Services at Home None What is your primary language Turkish Family History Hx Contributory? No (Darshan Coffman) Review of Systems Review of Systems Constitutional: Reports: see HPI, malaise, weakness. EENTM: Reports: no symptoms. Respiratory: Reports: no symptoms. Cardiovascular: Reports: no symptoms. GI: Reports: no symptoms. Genitourinary: Reports: no symptoms. Musculoskeletal: Reports: no symptoms. Skin: Reports: no symptoms. Neurological/Psychological: Reports: see HPI, tonic-clonic seizures. Hematologic/Endocrine: Reports: no symptoms. Immunologic/Allergic: Reports: no symptoms. All Other Systems: Reviewed and Negative (Darshan Coffman) Physical Exam Physical Exam General Appearance: lethargic Head: atraumatic Eyes: Bilateral: PERRL, EOMI, other (PINPOINT PUPILS). Ears, Nose, Throat: normal ENT inspection, hearing grossly normal Respiratory: decreased breath sounds Cardiovascular: irregularly irregular Gastrointestinal: normal bowel sounds, soft, non-tender Rectal: heme negative stool Neurologic/Psych: disoriented x 3 Skin: normal color Comments: GAG REFLEX INTACT Patient has full active range of motion of bilateral upper extremities Bilateral lower extremity patient cannot resist against gravity Core Measures ACS in differential dx? Yes CVA/TIA Diagnosis No Sepsis Present: No Sepsis Focused Exam Completed? No (Luis GOMEZ,Darshan) Progress Differential Diagnosis: arrythmia, alcohol intoxication, anemia, benign positional vertigo, CVA/stroke, dehydration, drug intoxication, encephalitis, electrolyte imbalance, GI bleed, hypoglycemia, hypoxia, intracranial Hem., intracranial mass/tumor, labrynthitis, meningitis, Meniere's disease, migraine TAYLOR, multiple sclerosis, pneumonia, postural hypotension, presyncope, post- traumatic vertigo, sepsis, seizure disorder, subarachnoid Hem., UTI/pyelo, vertebrobasilar insuff Plan of Care: Orders Procedure Date/time Status MAGNESIUM 12/03 06 Active CBC WITHOUT DIFFERENTIAL 12/03 599 Active BASIC ELECTROLYTES PLUS BUN&CR 12/03 599 Active Nothing by Mouth 12/02 D Active Skin/Pressure Ulcer Assess (Sk 12/02 2006 Active BLOOD PRODUCT PICKUP 12/02 195 Active Weight 12/02 185 Active Vital Signs 12/02 185 Active Teach/Educate 12/02 185 Active Pain Treatment and Response 12/02 185 Active Nutritional Intake, Monitor 12/02 185 Active Isolation 12/02 1850 Active Intake & Output 12/02 185 Active Patient Care Conference 12/02 1850 Active Activity/Ambulation 12/02 1850 Active Intake & Output 12/02 1822 Active LEUKOCYTE POOR (PACKED CELLS) 12/02 1721 Active TYPE & SCREEN (NOT X-MATCH) 12/02 1719 Active LACTIC ACID 12/02 1536 Complete FingerStick- Glucose 12/02 1535 Active Pathway - chart 12/02 1533 Active House Staff 12/02 1533 Active Patient Data 12/02 1533 Active Code Status 12/02 1533 Active OCCULT BLOOD 12/02 1531 Active ELECTROENCEPHALOGRAM 12/02 1530 Active THYROID STIMULATING HORMONE 12/02 1530 Active GLYCOSYLATED HGB 12/02 1530 Active Santos, Insertion/Removal/Asses 12/02 1451 Active LACTIC ACID 12/02 1450 Active Patient Data 12/02 1448 Active Admit to inpatient 12/02 1447 Active Vital Signs 12/02 1447 Active Code Status 12/02 1447 Complete URINALYSIS 12/02 1431 Active AMMONIA 12/02 1200 Complete CULTURE,URINE 12/02 1151 Active EKG 12/02 1151 Active Telemetry/Low Heel Builder 12/02 1150 Complete BLOOD CULTURE 12/02 115 Active URINE DRUG SCREEN FOR ER ONLY 12/02 115 Active TROPONIN LEVEL 12/02 115 Complete PROLACTIN 12/02 115 Complete LACTIC ACID 12/02 1149 Complete COMPREHENSIVE METABOLIC PANEL 12/02 1149 Complete CREATINE PHOSPHOKINASE 12/02 1149 Complete CBC WITHOUT DIFFERENTIAL 12/02 1149 Complete VTE Mechanical Prophylaxis 12/02 UNK Active Telemetry/Low Heel Builder 12/02 UNK Active Seizure Precautions 12/02 UNK Active Luisa Coma Scale 12/02 UNK Active Elevate 12/02 UNK Active Current Medications Sig/Dalia Start time Last Medication Dose Stop Time Status Admin Ondansetron HCl 4 MG Q6P PRN 12/02 1730 AC (Zofran) Sodium Chloride 1,000 ML Q13H 12/02 1730 AC 12/02 (Normal Saline 0.9%) 1922 Insulin Aspart 0 TIDAC 12/02 1700 AC 12/02 (NovoLOG) 1802 Heparin Sodium 5,000 UNIT ONCE ONE 12/02 1615 CAN (Porcine) 12/02 1616 (Heparin Bolus) Heparin Sodium 0 .STK-MED ONE 12/02 1612 CAN (Porcine) Heparin Sodium 5,000 UNIT ONCE ONE 12/02 1600 CAN (Porcine) 12/02 1601 (Heparin Bolus) Laboratory Tests 12/02/17 1820: Lactic Acid 2.7 H 12/02/17 1820: Hemoglobin A1c Pending, TSH 3.570 12/02/17 1234: Ammonia < 9 L 12/02/17 1234: Anion Gap 16, Estimated GFR 12 L, BUN/Creatinine Ratio 15.9, Glucose 141 H, Lactic Acid 2.9 H, Calcium 8.5, Total Bilirubin 1.0, AST 29, ALT 17 L, Alkaline Phosphatase 126, Creatine Kinase 76, Troponin I 0.08, Total Protein 6.5 , Albumin 3.2 L, Globulin 3.3, Albumin/Globulin Ratio 1.0 L, Prolactin 46.9 H , CBC w Diff MAN DIFF ORDERED, RBC 2.78 L, MCV 93.9, MCH 31.9 H, MCHC 33.9, RDW 15.7 H, MPV 7.0 L, Gran % 92.5 H, Lymphocytes % 5.2 L, Monocytes % 2.1, Eosinophils % 0, Basophils % 0.2, Absolute Granulocytes 7.2 H, Absolute Lymphocytes 0.4 L, Absolute Monocytes 0.2, Absolute Eosinophils 0, Absolute Basophils 0, Platelet Estimate VERIFIED BY SMEAR, Polychromasia 1+, Anisocytosis 1+ Microbiology 12/02 1314 BLOOD: Blood Culture - RECD 12/02 1234 BLOOD: Blood Culture - RECD 12/02 1151 URINE ROUT: Urine Culture - COLB Patient upon initial presentation is noted to be lethargic and following minimal commands appropriately however after possibly 5 minutes patient's clinical presentation has improved patient is answering questions more appropriately No facial droop noted no unilateral extremity weakness noted Patient is alert and oriented 1 Seizure pads were placed to patient's bed Patient was continued with oxygen supplementation EKG does show concerns of atrial fibrillation at 77 bpm discussed patient with head of quality Dr. Mojica in which old records indicate there is no history of atrial fibrillation in which they advised to administer heparin with no contraindication noted CT scan of the head shows no concerns of bleed heparin was not administered until the CT scan result of chest and abdomen showing no contour dictation of the heparin No concerns of acute bleeding, heparin was administered, discussed with patient and family members the CT scan results they were given copies for concerns of metastatic disease. Diagnostic Imaging: Viewed by Me: CT Scan. Radiology Impression: acute abnormality Initial ED EKG: AFIB (93 BPM), nonspecific ST abnormalities Comments: PATIENT: MARTIN MALDONADO PRESENT AGE: 77 PATIENT ACCOUNT NO: [id number] : 40 LOCATION: [facility] ORDERING PHYSICIAN: Darshan GOMEZ SERVICE DATE: 12/02/17-1150 EXAM TYPE: CAT - CT HEAD WO IV CONTRAST EXAMINATION: CT HEAD WITHOUT CONTRAST CLINICAL INFORMATION: Acute mental status change. Witnessed seizure. COMPARISON: CT scan of the head dated 11/04/2017. TECHNIQUE: Contiguous axial imaging was performed from the skull base to vertex without intravenous administration of contrast. DLP: 622.71 mGy-cm FINDINGS: There is no evidence of acute intracranial hemorrhage or territorial infarction. No abnormal mass effect or midline shift is seen. Phillip to white matter differentiation is well preserved. No extra-axial fluid collections are identified. The ventricles and sulci are mildly enlarged, consistent with involutional changes. Mild periventricular deep white matter low-attenuation is seen, consistent with ischemic small vessel disease. Dense calcification of the vertebral arteries and the carotid siphons are seen. The osseous structures and soft tissues are normal. The mastoid air cells and visualized portions of the paranasal sinuses are well aerated. IMPRESSION: Unchanged appearance of the head with no acute intracranial pathology seen. DICTATED BY: Clary Zuleta MD DATE/TIME DICTATED:12/02/17 142 ADULT LITERACY TEACHER:CLAIRE DATE/TIME TRANSCRIBED:12/02/17 / (Darshan Coffman) Departure Departure Disposition: STILL A PATIENT Condition: Guarded Clinical Impression Primary Impression: Tonic clonic seizures Secondary Impressions: AASHISH (acute kidney injury), Lactic acid acidosis, Metastasis, New onset a-fib Referrals: Annette IBARRA,Sukumar Mason (PCP/Family) Departure Forms: Customer Survey General Discharge Information (Darshan Coffman) Admission Note Spoke With: Erlin Wilson MD Documentation of Exam: Documentation of any treatments & extenuating circumstances including Concerns Regarding Discharge (functional status, medication knowledge or non-compliance, living conditions, etc.) that warrant an admission rather than observation: [The patient is being admitted for neurology consultation, neuro checks every 6 hours , titration of anticonvulsants, consider MRI,] I saw and personally examined the patient and I agree with the PAs findings. He was cachectic but in no acute distress on my evaluation. PA/BULLET LUBRICATING MACHINE OPERATOR Co-Sign Statement Statement: ED Attending supervision documentation- [x] I saw and evaluated the patient. I have also reviewed all the pertinent lab results and diagnostic results. I agree with the findings and the plan of care as documented in the PA's/BULLET LUBRICATING MACHINE OPERATOR's documentation. [] I have reviewed the ED Record and agree with the PA's/BULLET LUBRICATING MACHINE OPERATOR's documentation. [] Additions or exceptions (if any) to the PAs/BULLET LUBRICATING MACHINE OPERATOR's note and plan are summarized below: [] (Bridger Atkinson DO) Critical Care Note Critical Care Note Critical Care Time: 30-74 min (Darshan Coffman)
[2017-12-02 12:52] LABS: ABSOLUTE BASOPHIL COUNT 0 /CUMM (0.0-0.2); ABSOLUTE EOSINOPHIL COUNT 0 /CUMM (0.0-0.7); ABSOLUTE GRANULOCYTE CT 7.2 /CUMM (1.4-6.5); ABSOLUTE LYMPH COUNT 0.4 /CUMM (1.2-3.4); ABSOLUTE MONOCYTE COUNT 0.2 /CUMM (0.10-0.60); BASOPHIL % 0.2 % (0.0-2.0); EOSINOPHIL % 0 % (0-5); GRANULOCYTE % 92.5 % (42.2-75.2); HEMATOCRIT 26.1 % (42-52); MEAN CORPUSCULAR HGB 31.9 PG (27.0-31.0); MEAN CORPUSCULAR HGB CONC 33.9 G/DL (33.0-37.0); MEAN CORPUSCULAR VOLUME 93.9 FL (80.0-94.0); PLATELET COUNT 479 /CUMM (130-400); RBC DISTRIBUTION WIDTH 15.7 % (11.5-14.5); RED BLOOD CELL CT 2.78 /CUMM (4.70-6.10); WHITE BLOOD CELL COUNT 7.8 /CUMM (4.8-10.8)
--- NOTE | 2017-12-02 14:34 | CT SCAN REPORT ---
EXAMINATION: CT HEAD WITHOUT CONTRAST CLINICAL INFORMATION: Acute mental status change. Witnessed seizure. COMPARISON: CT scan of the head dated 11/04/2017. TECHNIQUE: Contiguous axial imaging was performed from the skull base to vertex without intravenous administration of contrast. DLP: 622.71 mGy-cm FINDINGS: There is no evidence of acute intracranial hemorrhage or territorial infarction. No abnormal mass effect or midline shift is seen. Phillip to white matter differentiation is well preserved. No extra-axial fluid collections are identified. The ventricles and sulci are mildly enlarged, consistent with involutional changes. Mild periventricular deep white matter low-attenuation is seen, consistent with ischemic small vessel disease. Dense calcification of the vertebral arteries and the carotid siphons are seen. The osseous structures and soft tissues are normal. The mastoid air cells and visualized portions of the paranasal sinuses are well aerated. IMPRESSION: Unchanged appearance of the head with no acute intracranial pathology seen.
--- NOTE | 2017-12-02 15:29 | History & Physical ---
Tamia Pool MD 12/02/17 1516: General Information and HPI MD Statement: I have seen and personally examined MARTIN MALDONADO and documented this H&P. The patient is a 77 year old M who presented with a patient stated chief complaint of [seizures]. Source of Information: family, old records Exam Limitations: clinical condition History of Present Illness: Patient is a 77-year-old male EHSAN from home with an episode of tonic-clonic activity witnessed by the daughter. Most of the history is taken from the daughter as the patient was feeling very sick. According to the daughter patient was losing his weight since last 1 year. Since last 6 months he is wheelchair-bound and on Santos catheter. Since last 3-4 weeks he is very anorexic and having nausea and vomiting intermittently. It got worse since last 2 or 3 days. Yesterday night he was complaining of pain and stiffness. She gave him 1 tablet of 10 mg of Percocet. He slept all over the night. In the morning he did not wake up early. Later in the day around 02-04, when daughter, went to see him downstairs he was having tonic and clonic movements all over the body along with up rolling of eyes and frothing from the mouth. It was lasted for around 30 seconds. They called the ambulance and brought him to the hospital.At the time of presentation patient was minimally responsive to painful stimuli, his SPO2 was 99% on room air. EKG did show evidence of atrial fibrillation and wide QRS complex. Patient had indwelling Santos catheter with dark and cloudy urine. It was changed in ED. He was on multiple antihypertensive medication but recently, a week ago was seen by primary care provider and found to have low blood pressure and CHF. Antihypertensive was stopped and he was given tablet Lasix 80 mg daily. According to the family patient was having history of type 2 diabetes previously on multiple medication and now it was decreased down to tablet metformin thousand milligrams twice daily. Past medical history - Type 2 diabetes on metformin Hypertension, not on antihypertensive Hyperlipidemia on atorvastatin Coronary artery disease, inferior wall [place], CABG 2002, cardiac catheterization 2006, History of prostate cancer; 30 years, status post chemotherapy and seats following Dr. Saenz and Dr. Ernst has recently; cystoscopy on May 2017. Was on antiandrogen every 2 years History of colon cancer; status post laparoscopic sigmoid resection 2010; following Dr. Honeycutt, had last colonoscopy May 2017. History of multiple disc repair at L4/L5 in November 2001. History of bilateral knee arthroplasty. Primary care provider -Stacia personal history-he is wheelchair-bound, lives with her daughter, conscious cooperative, ex-smoker, drinks beer. Family history-diabetes and brother, mother, sister. Allergies/Medications Allergies: Coded Allergies: cefadroxil (Intermediate, NAUSEA 12/02/17) magnesium (Intermediate, DIARRHEA 12/02/17) Home Med list Atorvastatin Calcium 80 MG TABLET 1 TAB PO DAILY HEART HEALTH (Reported) Clopidogrel Bisulfate (Plavix) 75 MG TABLET 1 TAB PO DAILY HEART HEALTH ( Reported) Furosemide (Lasix) 80 MG TABLET 1 TAB PO DAILY WATER RETENTION (Reported) Metformin HCl (Glucophage) 1,000 MG TABLET 1 TAB PO BID DM (Reported) Nitroglycerin 0.4 MG TAB.SUBL 1 TAB SL DAILY PRN CHEST PAIN (Reported) 1st sign of attack; may repeat every 5 minutes until relief; if pain persists after 3 tablets in 15 minutes, prompt medical att Oxycodone HCl 10 MG TABLET 1 TAB PO BIDP PRN PAIN (Reported) Ranolazine (Ranexa) 1,000 MG TAB.ER.12H 1 TAB PO DAILY HEART HEALTH ( Reported) Past History Travel History Traveled to [place] past 21 day No Medical History Neurological: NONE EENT: NONE Cardiovascular: CAD, hypertension, hyperlipidemia Respiratory: NONE Gastrointestinal: NONE Hepatic: NONE Renal: NONE Musculoskeletal: chronic back pain Psychiatric: NONE Endocrine: NONE Blood Disorders: NONE Cancer(s): colon/rectal cancer, prostate cancer, SKIN CANCER 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 GI: Reports: abdominal pain, bloating. Musculoskeletal: Reports: back pain, joint pain. Neurological/Psychological: Reports: anxiety. Exam & Diagnostic Data Last 24 Hrs of Vital Signs/I&O Vital Signs Date Time Temp Pulse Resp B/P B/P Pulse O2 O2 Flow FiO2 Mean Ox Delivery Rate 12/02 1823 100 Room Air 12/02 1745 97.8 103 18 103/65 99 Room Air 12/02 1640 98.1 82 18 108/62 100 Room Air 08/08 1456 97.7 108 18 94/66 96 Room Air 12/02 1423 98 Room Air 12/02 1217 97.4 100 18 122/56 99 Room Air Intake & Output 12/02 1600 12/02 0800 12/02 0000 Intake Total Output Total Balance Patient 72.575 kg Weight Weight Estimated Measurement Method Physical Exam General Appearance Alert, Oriented X3, Cooperative, No Acute Distress Neck Supple, No JVD Cardiovascular Normal S1, Normal S2 Lungs Clear to Auscultation, Normal Air Movement Abdomen Soft, No Tenderness Extremities No Clubbing, No Cyanosis, edema in legs Vascular Normal Pulses, Pulses Symmetrical Last 24 Hrs of Labs/Donell: Laboratory Tests 12/02/17 1234: Ammonia < 9 L 12/02/17 123: Anion Gap 16, Estimated GFR 12 L, BUN/Creatinine Ratio 15.9, Glucose 141 H, Lactic Acid 2.9 H, Calcium 8.5, Total Bilirubin 1.0, AST 29, ALT 17 L, Alkaline Phosphatase 126, Creatine Kinase 76, Troponin I 0.08, Total Protein 6.5 , Albumin 3.2 L, Globulin 3.3, Albumin/Globulin Ratio 1.0 L, Prolactin 46.9 H , CBC w Diff MAN DIFF ORDERED, RBC 2.78 L, MCV 93.9, MCH 31.9 H, MCHC 33.9, RDW 15.7 H, MPV 7.0 L, Gran % 92.5 H, Lymphocytes % 5.2 L, Monocytes % 2.1, Eosinophils % 0, Basophils % 0.2, Absolute Granulocytes 7.2 H, Absolute Lymphocytes 0.4 L, Absolute Monocytes 0.2, Absolute Eosinophils 0, Absolute Basophils 0, Platelet Estimate VERIFIED BY SMEAR, Polychromasia 1+, Anisocytosis 1+ Microbiology 12/02 1314 BLOOD: Blood Culture - RECD 12/02 1234 BLOOD: Blood Culture - RECD 12/02 1151 URINE ROUT: Urine Culture - ORD Assessment/Plan Assessment: Patient is a 77-year-old male EHSAN from home with an episode of tonic-clonic activity witnessed by the daughter. Vital signs at the time of admission-temperature 97.4, pulse 100, respiratory rate 18, blood pressure 100/56, SPO2 99% on room air. Blood workup showed-hemoglobin 8.9, hematocrit 26.1, platelet count 479, granulocyte 92.5, sodium 133, potassium 5.0, chloride 97, carbon DEXA 19, anion gap 16, BUN 73, creatinine 4.6, GFR 12, glucose 141, lactic acid 2.9, AST 29, ALT 17, albumin 3.2, prolactin 46.9, U tox/urine is pending. CT scan of the head -Unchanged appearance of the head with no acute intracranial pathology seen. CT scan of the chest and abdomen and pelvis - * Abnormal extensive retroperitoneal soft tissue mass is seen encasing the aorta and IVC, causing obstruction of the left mid ureter and resultant moderate left- sided hydroureteronephrosis. * Multiple bilateral irregularly shaped and variably sized nodules and masses are seen in the lungs bilaterally, suspicious for metastatic disease * matted retroperitoneal adenopathy Patient patient was given 3 L of normal saline in ED. he was constantly vomiting , and vomitus was having blood. The prescribed injection Zofran without any benefit. We kept the patient n.p.o, and admitted to telemetry floor for further evaluation and management. Assessment and plan- New onset seizure - * CT scan of the head and MRI are normal for any metastatic lesion. * Discussed with Dr. Melendez over the phone advice for injection Keppra 500 mg IV twice daily * She also advised that patient may need LP to evaluate for possible metastasis ? Atrial fibrillation with Wide QRS and IVCD - * We will admit the patient to telemetry floor. * Will do continuous telemetry monitoring * we will consider cardiology evaluation tomorrow Upper GI bleed -coffee-ground emesis * Patient was continuously having nausea * He was started on heparin which we stopped after he found having coffee-ground emesis * Injection Zofran was given and started on injection Zofran 4 mg IV every 6 hourly * Keep n.p.o. * Injection Protonix 40 mg IV twice daily * He was given 3 L of normal saline in the ED and will continue IV 100 cc/h. He also advised for 1 unit of blood transfusion and if needed then more. * Type and crossmatch * CBC every 6 hourly untill stabilize * Watch for the bleeding * Vital every shift * If patient get unstable please call GI * Discussed with Dr. Malik over the phone, he does think that patient doesnt need urgent endoscopy though should be on injection Protonix. Acute left-sided hydroureteronephrosis - * We will discuss goals of care tomorrow and then decide for further evaluation and management. Disseminated malignancy possibly prostate or colon cancer - * We will discuss goals of care tomorrow and then decide for further evaluation and management. Acute on chronic kidney disease possible dehydration, leading to Metabolic acidosis, lactic acidosis - * we will continue IV hydration * Strict intake output charting * Regular monitoring of the BEP Anemia -normocytic - * It can be due to chronic malignancy or GI bleed. * Currently we will transfuse the blood and then evaluate later on. CODE STATUS -discussed with the patient he wanted DNR but willing to have intubation and ventilation. He wanted his code will be discussed with her daughter greer, and son Elin. Diet-n.p.o. for now, until nausea get resolved DVT prophylaxis-please avoid heparin As Ranked By This Provider Problem List: 1. Tonic clonic seizures 2. AASHISH (acute kidney injury) 3. Lactic acid acidosis 4. New onset a-fib 5. Metastasis Core Measures/Misc (01/11) Acute Coronary Syndrome ACS Diagnosis: No Congestive Heart Failure Congestive Heart Failure Diagnosis No Cerebrovascular Accident CVA/TIA Diagnosis: No VTE (View Protocol) VTE Risk Factors Age>40 No Mechanical VTE Prophylaxis d/t N/A MechProphylax Ordered No VTE Pharm Prophylaxis d/t NA PharmProphylax ordered Sepsis (View protocol) Sepsis Present: No If YES complete Sepsis Event Note If YES complete Sepsis Event Note Erlin Wilson MD 12/02/17 4833: Core Measures/Misc (01/11) Sepsis (View protocol) If YES complete Sepsis Event Note If YES complete Sepsis Event Note Attending MD Review Statement Attending Statement Attending MD Statement: examined this patient, discuss w/resident/PA/DOCK GUARD, agreed w/resident/PA/DOCK GUARD, reviewed EMR data (avail) Attending Assessment/Plan: 77M with history of prostate cancer presenting with new onset seizure and visual hallucinations, A&Ox2, normal neurological exam, with imaging showing extensive retroperitoneal masses consistent with metastatic malignancy. Suspect brain metastases causing seizure. Also with AASHISH and elevated lactate. Will start IV hydration, Keppra, neurology and oncology consults, monitorrenal function, EEG, MRI head, home meds, DVT PPx
--- NOTE | 2017-12-02 15:52 | CT SCAN REPORT ---
EXAMINATION: CT CHEST, ABDOMEN AND PELVIS WITHOUT CONTRAST CLINICAL INFORMATION: Acute mental status change. Witnessed seizure. Renal insufficiency. COMPARISON: CT scan of the abdomen and pelvis dated 03/17/2010. TECHNIQUE: Multidetector volumetric imaging was performed from the base of the neck through the pubic symphysis. Sagittal and coronal reformatted images were obtained on the technologist workstation. DLP: 409.67 mGy-cm. FINDINGS: CT SCAN OF THE CHEST: LUNGS: There are multiple bilateral variably sized nodules and masses in the lungs bilaterally, all demonstrating irregular contours and somewhat spiculated margins, ranging in size between a few millimeters and up to 2.5 x 1.1 cm in the right lower lobe (series 4, image 374) and 1.8 x 1.2 cm in the left upper lobe (series 4, image 118). These raise the suspicion of diffuse metastatic disease, especially in light of the findings in the abdomen (see below). Differential would, however, also include inflammatory nodules or infectious nodules related to bilateral or fungal pneumonia or septic emboli. Large bilateral layering pleural effusions are seen, extending up to the lung apices. There is associated significant volume loss and atelectasis in both lower lobes and mild atelectatic changes in both upper lobes and in the right middle lobe. There is underlying moderate centrilobular emphysema. Layering mucus or debris is seen within the upper thoracic trachea. The central airways are otherwise patent. Mild diffuse thickening of the small airways is noted. No pneumothorax. LYMPHOVASCULAR STRUCTURES: Aortic size normal. Moderate atherosclerotic calcifications of the aorta and great vessels noted. The cardiac silhouette is enlarged with primarily left ventricular and left atrial enlargement noted. Mitral annular calcifications is seen and severe coronary artery calcifications are noted, especially involving the left main, left anterior descending and left circumflex coronary arteries. Subtle aortic valvular calcifications are also seen. No pericardial effusion. There is a tiny locule of air seen within the left brachiocephalic vein (series 2, image 11), possibly introduced iatrogenically. There is a borderline enlarged right lower paratracheal lymph node, measuring 1 cm in short axis. Other subcentimeter sized mediastinal and bilateral hilar lymph nodes are noted. THYROID GLAND: There is a 1.0 x 0.9 cm peripherally rim calcified nodule seen in the right lobe of the thyroid gland. Remainder of the thyroid gland is slightly atrophic. BONES: Mild vertebral spondylosis is seen in the mid and lower thoracic spine. Moderate vertebral spondylosis seen at the thoracolumbar junction. No suspicious focal findings. CT SCAN OF THE ABDOMEN AND PELVIS: LIVER, GALLBLADDER, AND BILIARY TREE: The liver is normal in size, shape, and attenuation. No focal hepatic lesion on noncontrast imaging. No biliary ductal dilatation is present. The gallbladder is hydropic, measuring 5.6 cm in maximal transverse dimension. No evidence of radiopaque gallstones, gallbladder wall thickening, or obvious pericholecystic inflammatory changes. PANCREAS: Diffusely atrophic and poorly visualized but otherwise grossly unremarkable. SPLEEN: Unremarkable on noncontrast imaging. ADRENAL GLANDS: Both adrenal glands are enlarged. There is a 3.2 x 2.9 cm diameter mass in the left adrenal gland, measuring 7.8 Hounsfield units. A smaller 3.0 x 1.9 cm right adrenal mass is seen, measuring 3.7 Hounsfield units. These findings are both new compared to the 2010 exam and may represent benign adrenal hypertrophy or benign adrenal masses, such as adrenal adenomas. KIDNEYS AND URETERS; LYMPH NODES, VASCULAR: The kidneys are normal in size, shape, and attenuation. There is moderate bilateral perinephric stranding. No right-sided hydronephrosis, hydroureter, or calculi seen. No left renal calculi seen. There is moderate left-sided hydroureteronephrosis. The dilated left ureter can be followed to the L3 level, where an obstructing amorphous and ill-defined periaortic soft tissue density mass is seen. Evaluation is limited on noncontrast study. Evaluation is also limited due to extensive posterior spinal fusion hardware-related beam hardening artifact, which causes artificial linearly oriented density in this region. There is a subtle 1.4 cm diameter peripherally rim calcified nodular density seen within this retroperitoneal mass (series 2, image 82). The mass is contiguous with the left psoas muscle, which is asymmetrically larger compared to the contralateral side. There is anterior mass effect upon the crossing duodenum and other small bowel. The aorta and IVC are completely encased by this mass. Dense atherosclerotic calcifications of the aorta are seen. There is mass extension along the proximal common iliac arteries, left greater than right. Findings are suspicious for matted lymphadenopathy in the retroperitoneum. Differential would also include retroperitoneal fibrosis. There is a small amount of presacral edema seen in the pelvis. BLADDER: Decompressed by a Santos catheter and therefore not adequately assessed. PELVIC VISCERA: Multiple prostate seed implants are seen in place. Prostate gland is not enlarged. Seminal vesicles are poorly visualized and is significantly atrophic. GASTROINTESTINAL TRACT: The small and large bowel are unremarkable. The appendix is unremarkable. ABDOMINAL WALL: No significant hernia is appreciated. The patient is cachectic. There is mild anasarca in the soft tissues. OSSEOUS STRUCTURES: 3 right hip nails are in place. Mild degenerative changes are seen in the hip joints and sacroiliac joints. The patient is status post laminectomy and posterior spinal fusion at L3-4 and L4-5 with grade 1 anterolistheses of L4 on 5 and grade 1 retrolistheses of L5 on S1 seen. No suspicious bone findings. IMPRESSION: 1. Abnormal extensive retroperitoneal soft tissue mass is seen encasing the aorta and IVC, causing obstruction of the left mid ureter and resultant moderate left-sided hydroureteronephrosis. Findings are suspicious for matted retroperitoneal adenopathy. In a patient with history of prostate cancer, metastatic disease must be excluded. Please correlate with PSA levels and clinical history. Other differential possibilities would include retroperitoneal fibrosis or other retroperitoneal neoplastic process. 2. Multiple bilateral irregularly shaped and variably sized nodules and masses are seen in the lungs bilaterally, suspicious for metastatic disease. Differential would also include diffuse inflammatory nodules or infectious nodules (viral or fungal infections). Close clinical correlation is requested. 3. Large bilateral pleural effusions with associated volume loss and atelectasis in both lower lobes. 4. Bilaterally enlarged nodular adrenal glands, new from 2010. The appearance is, however, more suggestive of benign adrenal hypertrophy or adrenal adenomas. 5. Peripherally rim calcified 1 cm nodule in the right lobe of the thyroid gland. 6. Hydropic gallbladder, which is otherwise unremarkable.
--- NOTE | 2017-12-02 17:51 | MRI REPORT ---
EXAMINATION: MR BRAIN WITHOUT CONTRAST CLINICAL INFORMATION: Seizures. COMPARISON: Head CT 12/02/2017. TECHNIQUE: Multiplanar, multisequence imaging of the brain was performed without intravenous contrast. The acquired images are moderate to severely motion degraded. FINDINGS: There is no acute infarct, large mass, midline shift, or significant mass effect. The ventricles are normal in size without evidence of hydrocephalus. There is mild diffuse brain parenchymal volume loss with prominence of the ventricles and sulci. There is scattered T2 prolongation throughout the cerebral white matter which is nonspecific. The major arterial flow voids are preserved. Small amount of fluid is present in the mastoids. The orbital contents appear normal. IMPRESSION: Motion degraded exam which limits sensitivity of the evaluation. No acute infarct or gross intracranial abnormality.
[2017-12-02 18:56] VITALS: BP 102/60
[2017-12-02 21:02] VITALS: BP 92/00
[2017-12-02 22:40] VITALS: BP 94/00
[2017-12-03 00:49] LABS: ABSOLUTE BASOPHIL COUNT 0 /CUMM (0.0-0.2); ABSOLUTE EOSINOPHIL COUNT 0 /CUMM (0.0-0.7); ABSOLUTE GRANULOCYTE CT 7.9 /CUMM (1.4-6.5); ABSOLUTE LYMPH COUNT 0.6 /CUMM (1.2-3.4); ABSOLUTE MONOCYTE COUNT 0.3 /CUMM (0.10-0.60); BASOPHIL % 0 % (0.0-2.0); EOSINOPHIL % 0 % (0-5); GRANULOCYTE % 89.4 % (42.2-75.2); HEMATOCRIT 27.3 % (42-52); MEAN CORPUSCULAR HGB 31.2 PG (27.0-31.0); MEAN CORPUSCULAR HGB CONC 33.6 G/DL (33.0-37.0); MEAN CORPUSCULAR VOLUME 92.8 FL (80.0-94.0); MEAN PLATELET VOLUME 7.4 FL (7.4-10.4); PLATELET COUNT 434 /CUMM (130-400); RBC DISTRIBUTION WIDTH 16.3 % (11.5-14.5); RED BLOOD CELL CT 2.94 /CUMM (4.70-6.10); WHITE BLOOD CELL COUNT 8.9 /CUMM (4.8-10.8)
[2017-12-03 01:36] VITALS: BP 100/70
[2017-12-03 06:00] VITALS: BP 100/62
[2017-12-03 08:13] LABS: ABSOLUTE BASOPHIL COUNT 0 /CUMM (0.0-0.2); ABSOLUTE EOSINOPHIL COUNT 0 /CUMM (0.0-0.7); ABSOLUTE GRANULOCYTE CT 7.7 /CUMM (1.4-6.5); ABSOLUTE LYMPH COUNT 0.9 /CUMM (1.2-3.4); ABSOLUTE MONOCYTE COUNT 0.6 /CUMM (0.10-0.60); BASOPHIL % 0 % (0.0-2.0); EOSINOPHIL % 0 % (0-5); HEMATOCRIT 27.9 % (42-52); MEAN CORPUSCULAR HGB 31.6 PG (27.0-31.0); MEAN CORPUSCULAR HGB CONC 33.8 G/DL (33.0-37.0); MEAN CORPUSCULAR VOLUME 93.5 FL (80.0-94.0); MEAN PLATELET VOLUME 7.2 FL (7.4-10.4); PLATELET COUNT 432 /CUMM (130-400); RBC DISTRIBUTION WIDTH 16.6 % (11.5-14.5); RED BLOOD CELL CT 2.99 /CUMM (4.70-6.10); WHITE BLOOD CELL COUNT 9.3 /CUMM (4.8-10.8)
[2017-12-03 09:31] LABS: GRANULOCYTE % 83.4 % (42.2-75.2)
--- NOTE | 2017-12-03 09:56 | Cons- Cardiology ---
General Information and HPI Consulting Request Date of Consult: 12/03/17 Requested By: Erlin Wilson MD Reason for Consult: atrial fibrillation Source of Information: family, old records Exam Limitations: unable to give history, dementia, poor historian History of Present Illness: 77-year-old male past medical history coronary artery disease status post CABG ( last cath May 2014 showed patent MORTON to LAD, patent SVG to OM, ULTRASONIC SOLDERER of SVG to LPDA), ischemic cardiomyopathy/HFrEF (last echo 06/30/2017 LVEF 45-50%), PAD status post femoral stenting, hypertension, hyperlipidemia, diabetes, spinal stenosis, arthritis, prostate cancer s/p chemotherapy and sead implants presented initially after being brought to the ED by family after witnessed tonic-clonic seizure. Patient was noted to be in atrial fibrillation emergency room, and was started on anticoagulation with heparin drip. Patient subsequently was found to have coffee-ground emesis, and heparin was stopped. Seen at bedside today, patient is asleep, appears to be resting comfortably. As per previous notes, patient is a poor historian, largely wheelchair bound, and unable to provide any history. Patient's son is at bedside, and reports that the patient had not been complaining of any recent chest pain or dyspnea prior to admission. Patient had recently been seen for routine cardiology follow-up, and had been started on diuretic therapy with Lasix for fluid overload and dyspnea; as of his last follow-up in September 2017 these complaints had improved following Lasix therapy. Allergies/Medications Allergies: Coded Allergies: cefadroxil (Intermediate, NAUSEA 12/02/17) magnesium (Intermediate, DIARRHEA 12/02/17) Home Med List: Atorvastatin Calcium 80 MG TABLET 1 TAB PO DAILY HEART HEALTH (Reported) Clopidogrel Bisulfate (Plavix) 75 MG TABLET 1 TAB PO DAILY HEART HEALTH ( Reported) Furosemide (Lasix) 80 MG TABLET 1 TAB PO DAILY WATER RETENTION (Reported) Metformin HCl (Glucophage) 1,000 MG TABLET 1 TAB PO BID DM (Reported) Nitroglycerin 0.4 MG TAB.SUBL 1 TAB SL DAILY PRN CHEST PAIN (Reported) 1st sign of attack; may repeat every 5 minutes until relief; if pain persists after 3 tablets in 15 minutes, prompt medical att Oxycodone HCl 10 MG TABLET 1 TAB PO BIDP PRN PAIN (Reported) Ranolazine (Ranexa) 1,000 MG TAB.ER.12H 1 TAB PO DAILY HEART HEALTH ( Reported) Review of Systems Review of Systems: Unable to obtain as patient cannot provide any history at this time Past History Travel History Traveled to [place] past 21 day No Medical History Blood Transfusion Hx: Yes Neurological: NONE EENT: NONE Cardiovascular: CAD, hypertension, hyperlipidemia Respiratory: NONE Gastrointestinal: NONE Hepatic: NONE Renal: NONE Musculoskeletal: chronic back pain Psychiatric: NONE Endocrine: NONE Blood Disorders: NONE Cancer(s): colon/rectal cancer, prostate cancer, [employer]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 Home Services at Home: None Smoking Status: Former Smoker Exam & Diagnostic Data Vital Signs and I&O Vital Signs Date Time Temp Pulse Resp B/P B/P Pulse O2 O2 Flow FiO2 Mean Ox Delivery Rate 12/03 599 97.4 116 20 100/62 98 Room Air 12/03 0136 120 100/70 12/03 0000 Room Air 12/02 2240 94/00 12/02 2102 97.3 114 18 92/00 92 Room Air 12/02 1856 98.1 115 18 102/60 96 Room Air 12/02 1854 95 Room Air 12/02 1823 100 Room Air 12/02 1745 97.8 103 18 103/65 99 Room Air 12/02 1640 98.1 82 18 108/62 100 Room Air 12/02 1456 97.7 108 18 94/66 96 Room Air 12/02 1423 98 Room Air 12/02 1217 97.4 100 18 122/56 99 Room Air Intake & Output 12/03 1600 12/03 0000 12/02 1600 12/02 0000 Intake Total 900 3850 Output Total 50 4 Balance 850 3846 Intake, IV 900 3850 Output, Urine 50 4 Patient 70.477 kg 72.575 kg Weight Weight Bed scale Estimated Measurement Method Physical Exam: General: Elderly male, lying in bed, appears cachectic HEENT: NCAT, NO JVD Heart: s1s2, irregular rhythm, tachycardic, no MRG Lungs: CTA b/l Abd: soft, nt Ext: no peripheral edema Labs/Donell Results: Laboratory Tests 12/03 12/03 0621 0600 Chemistry Sodium (137 - 145 mmol/L) 135 L Potassium (3.5 - 5.1 mmol/L) 4.7 Chloride (98 - 107 mmol/L) 105 Carbon Dioxide (22 - 30 mmol/L) 15 L Anion Gap (5 - 16) 15 BUN (9 - 20 mg/dL) 72 H Creatinine (0.7 - 1.2 mg/dL) 4.4 H Estimated GFR (>60 ml/min) 13 L BUN/Creatinine Ratio (7 - 25 %) 16.4 Magnesium (1.6 - 2.3 mg/dL) 1.6 Carcinoembryonic Ag Pending Total PSA (0.00 - 4.00 ng/mL) Pending Hematology CBC w Diff NO MAN DIFF REQ WBC (4.8 - 10.8 /CUMM) 9.3 RBC (4.70 - 6.10 /CUMM) 2.99 L Hgb (14.0 - 18.0 G/DL) 9.4 L Hct (42 - 52 %) 27.9 L MCV (80.0 - 94.0 FL) 93.5 MCH (27.0 - 31.0 PG) 31.6 H MCHC (33.0 - 37.0 G/DL) 33.8 RDW (11.5 - 14.5 %) 16.6 H Plt Count (130 - 400 /CUMM) 432 H MPV (7.4 - 10.4 FL) 7.2 L Gran % (42.2 - 75.2 %) 83.4 H Lymphocytes % (20.5 - 51.1 %) 10.1 L Monocytes % (1.7 - 9.3 %) 6.5 Eosinophils % (0 - 5 %) 0 Basophils % (0.0 - 2.0 %) 0 Absolute Granulocytes (1.4 - 6.5 /CUMM) 7.7 H Absolute Lymphocytes (1.2 - 3.4 /CUMM) 0.9 L Absolute Monocytes (0.10 - 0.60 /CUMM) 0.6 Absolute Eosinophils (0.0 - 0.7 /CUMM) 0 Absolute Basophils (0.0 - 0.2 /CUMM) 0 12/0308 12/02 0010 1820 1820 Chemistry Hemoglobin A1c (4.2 - 5.8 %) 5.4 Lactic Acid (0.7 - 2.1 mmol/L) 2.7 H TSH (0.270 - 4.200 uIU/mL) 3.570 Hematology CBC w Diff MAN DIFF ORDERED WBC (4.8 - 10.8 /CUMM) 8.9 RBC (4.70 - 6.10 /CUMM) 2.94 L Hgb (14.0 - 18.0 G/DL) 9.2 L Hct (42 - 52 %) 27.3 L MCV (80.0 - 94.0 FL) 92.8 MCH (27.0 - 31.0 PG) 31.2 H MCHC (33.0 - 37.0 G/DL) 33.6 RDW (11.5 - 14.5 %) 16.3 H Plt Count (130 - 400 /CUMM) 434 H MPV (7.4 - 10.4 FL) 7.4 Gran % (42.2 - 75.2 %) 89.4 H Lymphocytes % (20.5 - 51.1 %) 6.7 L Monocytes % (1.7 - 9.3 %) 3.9 Eosinophils % (0 - 5 %) 0 Basophils % (0.0 - 2.0 %) 0 Absolute Granulocytes (1.4 - 6.5 /CUMM) 7.9 H Segmented Neutrophils (42.2 - 75.2 %) 93 H Absolute Lymphocytes (1.2 - 3.4 /CUMM) 0.6 L Lymphocytes (20.5 - 51.1 %) 4 L Monocytes (1.7 - 9.3 %) 3 Absolute Monocytes (0.10 - 0.60 /CUMM) 0.3 Absolute Eosinophils (0.0 - 0.7 /CUMM) 0 Absolute Basophils (0.0 - 0.2 /CUMM) 0 Platelet Estimate (ADEQUATE) INCREASED Polychromasia 1+ Poikilocytosis 2+ Ovalocytes 1+ [place] Cells 1+ Other Body Source Fld Total RBCs Counted (%) 100 12/02 0808 12/02 1450 1234 1234 Chemistry Sodium (137 - 145 mmol/L) 133 L Potassium (3.5 - 5.1 mmol/L) 5.0 Chloride (98 - 107 mmol/L) 97 L Carbon Dioxide (22 - 30 mmol/L) 19 L Anion Gap (5 - 16) 16 BUN (9 - 20 mg/dL) 73 H Creatinine (0.7 - 1.2 mg/dL) 4.6 H Estimated GFR (>60 ml/min) 12 L BUN/Creatinine Ratio (7 - 25 %) 15.9 Glucose (65 - 99 mg/dL) 141 H Lactic Acid (0.7 - 2.1 mmol/L) Cancelled 2.9 H Calcium (8.4 - 10.2 mg/dL) 8.5 Total Bilirubin (0.2 - 1.3 mg/dL) 1.0 AST (17 - 59 U/L) 29 ALT (21 - 72 U/L) 17 L Alkaline Phosphatase (< 127 U/L) 126 Ammonia (9 - 30 umol/L) < 9 L Creatine Kinase (55 - 170 U/L) 76 Troponin I (<0.11 ng/ml) 0.08 Total Protein (6.3 - 8.2 g/dL) 6.5 Albumin (3.5 - 5.0 g/dL) 3.2 L Globulin (1.9 - 4.2 gm/dL) 3.3 Albumin/Globulin Ratio (1.1 - 2.2 %) 1.0 L Prolactin (3.7 - 17.9 ng/mL) 46.9 H Hematology CBC w Diff MAN DIFF ORDERED WBC (4.8 - 10.8 /CUMM) 7.8 RBC (4.70 - 6.10 /CUMM) 2.78 L Hgb (14.0 - 18.0 G/DL) 8.9 L Hct (42 - 52 %) 26.1 L MCV (80.0 - 94.0 FL) 93.9 MCH (27.0 - 31.0 PG) 31.9 H MCHC (33.0 - 37.0 G/DL) 33.9 RDW (11.5 - 14.5 %) 15.7 H Plt Count (130 - 400 /CUMM) 479 H MPV (7.4 - 10.4 FL) 7.0 L Gran % (42.2 - 75.2 %) 92.5 H Lymphocytes % (20.5 - 51.1 %) 5.2 L Monocytes % (1.7 - 9.3 %) 2.1 Eosinophils % (0 - 5 %) 0 Basophils % (0.0 - 2.0 %) 0.2 Absolute Granulocytes (1.4 - 6.5 /CUMM) 7.2 H Absolute Lymphocytes (1.2 - 3.4 /CUMM) 0.4 L Absolute Monocytes (0.10 - 0.60 /CUMM) 0.2 Absolute Eosinophils (0.0 - 0.7 /CUMM) 0 Absolute Basophils (0.0 - 0.2 /CUMM) 0 Platelet Estimate (ADEQUATE) VERIFIED BY SMEAR Polychromasia 1+ Anisocytosis 1+ Diagnostic Data EKG Results Personally reviewed Atrial fibrillation, poor R-wave progression, IVCD/incomplete left bundle branch block Other Results Telemetry personally reviewed: Atrial fibrillation with RVR TTE 06/30/2017: Mildly increased left ventricular cavity size. ~Mildly decreased left ventricular systolic function. ~Normal left ventricle wall thickness. ~LVEF estimated by visual assessment was between 45-50%. ~Regional wall motion abnormalities present. ~Mild diastolic dysfunction consistent with impaired relaxation with low to normal filling pressure (grade 1). * The apex, apical anterior, mid anterior, apical septum, mid inferoseptal, and mid anteroseptal segments are hypokinetic. * Left atrium is mildly dilated. ~Right atrium is normal in size. * Dilated sinuses of Valsalva with a diameter of 3.[address] chest/abd/pelv: 1. Abnormal extensive retroperitoneal soft tissue mass is seen encasing the aorta and IVC, causing obstruction of the left mid ureter and resultant moderate left-sided hydroureteronephrosis. Findings are suspicious for matted retroperitoneal adenopathy. In a patient with history of prostate cancer, metastatic disease must be excluded. Please correlate with PSA levels and clinical history. Other differential possibilities would include retroperitoneal fibrosis or other retroperitoneal neoplastic process. 2. Multiple bilateral irregularly shaped and variably sized nodules and masses are seen in the lungs bilaterally, suspicious for metastatic disease. Differential would also include diffuse inflammatory nodules or infectious nodules (viral or fungal infections). Close clinical correlation is requested. 3. Large bilateral pleural effusions with associated volume loss and atelectasis in both lower lobes. 4. Bilaterally enlarged nodular adrenal glands, new from 2009. The appearance is, however, more suggestive of benign adrenal hypertrophy or adrenal adenomas. 5. Peripherally rim calcified 1 cm nodule in the right lobe of the thyroid gland. 6. Hydropic gallbladder, which is otherwise unremarkable. Assessment/Plan Assessment/Plan 1. coronary artery disease status post CABG (last cath May 2014 showed patent MORTON to LAD, patent SVG to OM, ULTRASONIC SOLDERER of SVG to LPDA) 2. ischemic cardiomyopathy/HFrEF (last echo 06/30/2017 LVEF 45-50%) 3. PAD status post femoral stenting 4. hypertension 5. hyperlipidemia 6. diabetes 7. spinal stenosis 8. arthritis 9. prostate cancer s/p chemotherapy and sead implants, as per CT chest/abdomen/ pelvis current concern for metastatic disease 10. Possible seizure 11. Newly diagnosed atrial fibrillation, not currently on anti-coagulation due to coffee-ground emesis while in the emergency room 12. Acute renal failure, anuric Patient with extensive cardiac and medical history as above. Patient is in atrial fibrillation with RVR, and borderline hypotensive. [id number] is at least 6, however anticoagulation should be held at this time due to noted coffee- ground emesis. Anticoagulation can be reconsidered once bleeding issue is resolved. Antiplatelet can additionally be held in the short-term as patient has no recent stenting/PCI. Troponin was negative. The patient is tachycardic, in RVR. As patient is NOPO, IV metoprolol tartrate 5 mg every 6 hours can be given; a reasonable goal HR is less than 110bpm. Monitor blood pressure. Consult Acknowledgment - Thank you for your consult request.
--- NOTE | 2017-12-03 11:14 | PN- Housestaff ---
Luther Dozier 12/03/17 1114: Subjective Follow-up For: Seizure,history of cancer Complaints: pt unable to provide hx Tele-Events Since Last Visit: HR 112-120, Atrial fibrillation with RVR Subjective: Patient waas seen at the bedside with the whole family, including daughter and sons. Patient was unable to provide the history. Daughter was concerned that he has not passed any urine overnight. Goals of care discussion was had with family at baseline by Dr. Wilson. The family is unsure about proceeding with biopsy and tissue diagnosis of metastases, and are strongly leaning against chemotherapy or any surgery, as they believe this will only prolong his agony and suffering. Family has been given time and furthur discussions will be required. Review of Systems Constitutional: Reports: chills, malaise, weakness, unexplained weight loss. Denies: diaphoresis, fever. Cardiovascular: Denies: chest pain, edema, palpitations. Respiratory: Denies: cough, hemoptysis, short of breath. Gastrointestinal: Reports: vomiting. Denies: abdominal pain, constipation, diarrhea. Genitourinary: Reports: see HPI. Musculoskeletal: Reports: back pain, muscle pain. Objective Last 24 Hrs of Vital Signs/I&O Vital Signs Date Time Temp Pulse Resp B/P B/P Pulse O2 O2 Flow FiO2 Mean Ox Delivery Rate 12/04 0000 Room Air 12/03 2251 97.6 127 18 80/60 100 Room Air 12/03 2138 100 90/58 12/03 1508 100 90/58 / 1440 97.5 110 20 90/58 93 Room Air 12/03 0800 Room Air Intake & Output 12/04 0812/04 0000 12/03 1600 Intake Total 900 1200 900 Output Total 50 90 30 Balance 850 1110 870 Intake, IV 800 1000 900 Intake, Oral 100 200 0 Output, Urine 50 90 30 Patient 155 lb 155 lb Weight Physical Exam General Appearance: Alert, Oriented X3, Cooperative, No Acute Distress Cardiovascular: Regular Rate, No Murmurs Lungs: Clear to Auscultation, Normal Air Movement Abdomen: Normal Bowel Sounds, Soft, No Tenderness, No Hepatospenomegaly, No Masses Neurological: Normal Speech, Strength at 5/5 X4 Ext, Normal Tone, Sensation Intact Extremities: No Clubbing, No Cyanosis, No Edema, Normal Pulses, No Tenderness/ Swelling Current Medications: Current Medications Sig/Dalia Start time Last Medication Dose Route Stop Time Status Admin Dextrose/Sodium 1,000 ML Q10H 12/02 2315 DC 12/03 Chloride IV 0951 Insulin Aspart 0 TIDAC 12/03 1700 AC SC Insulin Human Regular 0 Q6 12/02 2359 DC 12/03 SC 1205 Levetiracetam 500 MG Q12 12/02 2100 AC 12/03 N/A 1 UNIT IV 2138 Metoprolol Tartrate 6.25 MG BID 12/03 1312 AC 12/03 PO 2138 Ondansetron HCl 4 MG Q6P PRN 12/02 1730 AC IV Oxycodone HCl 5 MG Q6P PRN 12/03 1230 DC PO Oxycodone HCl 10 MG Q6P PRN 12/03 1230 AC 12/03 PO 1230 Oxycodone HCl 0 .STK-MED ONE 12/03 1228 DC PO Pantoprazole Sodium 40 MG BID 12/02 2100 AC 12/03 IV 2138 Sodium Bicarbonate 150 MEQ Q8H 12/03 2045 CAN Dextrose/Sodium 1,000 ML IV Chloride Sodium Bicarbonate 75 MEQ Q10H 12/03 1915 AC 12/03 Sodium Chloride 1,000 ML IV 2000 Sodium Bicarbonate 75 MEQ Q10H 12/03 1045 DC 12/03 Dextrose/Sodium 1,000 ML IV 12/03 2044 1117 Chloride Last 24 Hrs of Lab/Donell Results Last 24 Hrs of Labs/Mics: Laboratory Tests 12/04/17 0607: Sodium Pending, Potassium Pending, Chloride Pending, Carbon Dioxide Pending, Anion Gap Pending, BUN Pending, Creatinine Pending, BUN/Creatinine Ratio Pending , Magnesium Pending, CBC w Diff Pending, WBC Pending, RBC Pending, Hgb Pending, Hct Pending, MCV Pending, MCH Pending, MCHC Pending, RDW Pending, Plt Count Pending, MPV Pending 12/04/17 0100: Anion Gap 13, Estimated GFR 12 L, BUN/Creatinine Ratio 15.9, CBC w Diff NO MAN DIFF REQ, RBC 2.87 L, MCV 93.0, MCH 31.1 H, MCHC 33.4, RDW 16.9 H, MPV 7.2 L , Gran % 86.0 H, Lymphocytes % 7.9 L, Monocytes % 5.9, Eosinophils % 0.1, Basophils % 0.1, Absolute Granulocytes 6.9 H, Absolute Lymphocytes 0.6 L, Absolute Monocytes 0.5, Absolute Eosinophils 0, Absolute Basophils 0 12/03/17 1227: Urine Color ORANG H, Urine Clarity CLDY H, Urine pH 6.0, Ur Specific [place] > = 1.030, Urine Protein >=300 H, Urine Ketones NEG, Urine Nitrite NEG, Urine Bilirubin NEG@ICTO, Urine Urobilinogen 0.2, Ur Leukocyte Esterase MOD H, Ur Microscopic SEDIMENT EXAMINED, Urine RBC 15-25 H, Urine WBC PACKD H, Ur Epithelial Cells FEW, Urine Bacteria PACKD H, Urine Hemoglobin LARGE H, Urine Glucose NEG Microbiology 12/03 190 URINE ROUT: Urine Culture - COLB Assessment/Plan Assessment: 77-year-old male with PMH HTN, DM 2, HLD, CAD, post CABG 2002, prostate cancer S/P chemo and radiotherapy , colon cancer in 2010 with colonoscopy in 08/2017, with multiple surgeries came with history of GTCS. Workup revealed uremia with obstructive uropathy, AASHISH. old records also show para-aortic lymphadenopathy on a CT from November 2016, CXR from 08/2017 shows no evidence of nodules or metastases. 1) New onset seizure- - CT, MRI negative -EEG- generalized slowing of the backgrounds with no focal or epileptiform features - Patient is currently on Keppra, more likely due to uremia - Did not have any further episodes of Seizures 2) ACute Left sided Hydroureteronephrosis- Urology consulted for obstructive nephropathy considering stenting of ureter monitor UO NPO, in case procedure required 3) ACute on chronic kidney injury Creatinine is 4.6, GFR- 12 L- stage G5 Total urine output - 170 ml after 3.8 L of IV fluids DR. Esteves said Dialysis is not required, replace NS with +75 mEq of sodium bicarbonate per liter at 100 cc/h 4)Atrial fibrillation - Patient is in RVR, [id number] atleast 6, Starte metoprolol 5mg iv for controlling HR ANticoagulation is discontinued due to hematemesis Monitor Vitals 5) Upper GI bleed-- coffee ground emesis- - No further episodes of Emesis - Heparin is stopped 6)ANemia- normocytic- iron deficiency - due to GI bleed - receievd 1 prbc yesterday evening - HB- 8.9, will monitor CBC 12 th hourly - 7)Metastatic disease with unknown primary malignancy- - Palliative care consulted - H/O Prostate cancer and colon cancer, with retroperitoneal mass and multiple mets in the lungs -Manage pain and other symptoms as per DR Ayala Problem List: 1. Tonic clonic seizures 2. AASHISH (acute kidney injury) 3. New onset a-fib 4. Metastasis Pain Ratin Pain Location: back, generalised pain Pain Goal: Remain pain free Pain Plan: oxycodone 10 mg Tomorrow's Labs & Rationales: cbc, bep Erlin Wilson MD 12/03/17 1219: Attending MD Review Statement Attending Statement Attending MD Statement: examined this patient, discuss w/resident/PA/[employer], agreed w/resident/PA/[employer], reviewed EMR data (avail) Attending Assessment/Plan: 77M PMH T2DM, HTN, HLD, CAD s/p NE and CABG 2002, history of prostate cancer s/p chemotherapy and radioactive seeding, history of colon cancer s/p sigmoidectomy 2010, last colonoscopy 05/2017 was normal, history of multiple back surgeries, currently mostly wheelchair bound due to back pain and deconditioning, presented initially with weakness, lethargy, visual hallucinations, and witnessed tonic- clonic seizure at home. Workup revealed uremia, obstructive uropathy, and AASHISH, which may be causing his encephalopathy and seizure. He also has extensive retroperitoneal metastatic disease and lung metastases with unknown primary malignancy. CT and MRI of the head were negative. Patient was found to be in atrial fibrillation but this is not new and is present on old records. Old records also show para-aortic lymphadenopathy on a CT from November 2016, CXR from 08/2017 shows no evidence of nodules or metastases. Overnight, patient was started on heparin drip for afib and had an episode of hematemesis. He was transfused 1 unit pRBC. His Hgb remains stable and there are no further signs of bleeding. He is weak and pale and mildly confused, unaware of the month. He has asterixis on exam. He received 3.5L normal saline with mild improvement in renal function. Goals of care discussion was had with family at baseline. Ultimate concern right now is improvement in renal function and functional status. The family is unsure about proceeding with biopsy and tissue diagnosis of metastases, and are strongly leaning against chemotherapy or any surgery, as they believe this will only prolong his agony and suffering. Further discussions will be required and the family is being given time to discuss and process the information. 1. Uremic encephalopathy 2. 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 Metastatic disease with unknown primary malignancy 4. Lung metastases with bilateral malignant effusions 5. AASHISH secondary to obstructive uropathy and dehydration 6. Chronic atrial fibrillation 7. Deconditioning Plan - Continue on telemetry - Urology consult for obstructive uropathy - Cardiology consult for atrial fibrillation and EKG changes - Palliative care consult for goals of care discussions - Nephrology consult for AASHISH - D5 1/2 NS with bicarb - Monitor urine output - Hold anti-coagulation for now due to hematemesis - Continue Keppra - Obtain records from his oncologist - Oxycodone 5mg q6h PRN pain, montior for sedation - NPO for now in case of urological procedure - Continue home medications - DVT PPx with ALPS
[2017-12-03 14:40] VITALS: BP 90/58
--- NOTE | 2017-12-03 16:14 | Cons- Nephrology ---
General Information and HPI Consulting Request Date of Consult: 12/03/17 Requested By: Erlin Wilson MD Reason for Consult: AASHISH Source of Information: family, old records Exam Limitations: confusion, poor historian History of Present Illness: I am asked to see this 77-year-old gentleman because of what appears to be acute kidney injury. The reason for his admission was the observation by his daughter that he was having a tonic-clonic generalized seizure. She also notes that he has been failing over the past 6-12 months with anorexia and occasional nausea and vomiting. In addition, he was recently noted to be hypotensive by his primary care physician who also thought that he may be in CHF. In the emergency department his EKG showed atrial fibrillation (new) with systolic blood pressures in the 90s to low 100s. Serum creatinine was noted to be 4.6 yesterday and 4.4 today prompting this consultation request. Previous serum creatinine levels were 1.1 in 2015 and 1.5 on 11/04/17. Current electrolytes are notable for a serum bicarbonate of 19 falling to 15 today while serum potassium was unremarkable at 5.0 and 4.7. Anion gap was 13 with a calcium of 8.5, magnesium 1.6, albumin 3.2, lactic acid 2.7, normal LFTs and normal CK and troponin levels. Of note, CT scan of abdomen, pelvis and chest showed extensive retroperitoneal adenopathy or mass encasing the aorta and IVC as well as obstructing the left mid ureter with resultant moderate left-sided hydroureteronephrosis. Also noted were irregularly shaped and variably sized pulmonary nodules. Parenthetically, the patient has a history of prostate cancer and has a chronic Santos catheter. CT and MRI scans of the head failed to reveal any obvious pathology. Urinalysis showed a very high specific gravity of 1.030 and high-grade dipstick proteinuria with packed WBCs and 15-25 RBCs per high power field plus many bacteria. CBC revealed a WBC of 9.3, hemoglobin 9.4, hematocrit 27.9. Past medical history is positive for type 2 diabetes mellitus, hypertension, hyperlipidemia, coronary artery disease status post inferior wall AK and CABG in 2002, cardiac catheterization in 2006, prostate cancer (date and therapeutic regimen unknown to me at this time), chronic Santos catheter, laparoscopic sigmoid resection of a colon cancer in 2010, bilateral knee arthroplasties and multiple disc repairs. 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 Allergies/Medications Allergies: Coded Allergies: cefadroxil (Intermediate, NAUSEA 12/02/17) magnesium (Intermediate, DIARRHEA 12/02/17) Home Med List: Atorvastatin Calcium 80 MG TABLET 1 TAB PO DAILY HEART HEALTH (Reported) Clopidogrel Bisulfate (Plavix) 75 MG TABLET 1 TAB PO DAILY HEART HEALTH ( Reported) Furosemide (Lasix) 80 MG TABLET 1 TAB PO DAILY WATER RETENTION (Reported) Metformin HCl (Glucophage) 1,000 MG TABLET 1 TAB PO BID DM (Reported) Nitroglycerin 0.4 MG TAB.SUBL 1 TAB SL DAILY PRN CHEST PAIN (Reported) 1st sign of attack; may repeat every 5 minutes until relief; if pain persists after 3 tablets in 15 minutes, prompt medical att Oxycodone HCl 10 MG TABLET 1 TAB PO BIDP PRN PAIN (Reported) Ranolazine (Ranexa) 1,000 MG TAB.ER.12H 1 TAB PO DAILY HEART HEALTH ( Reported) Review of Systems Review of Systems: Gen.: Appetite poor, + unexplained weight loss Skin: No rash or jaundice HEENT: No visual or hearing disturbances, no discharge Cardiopulmonary: No shortness of breath, cough, chest pain, orthopnea GI: + nausea, vomiting (see HPI), no abdominal pain, diarrhea : Chronic Santos catheter Musculoskeletal: No arthralgias, arthritis, myalgias, +weakness Neuro: See HPI Past History Travel History Traveled to [place] past 21 day No Medical History Blood Transfusion Hx: Yes Neurological: NONE EENT: NONE Cardiovascular: CAD, hypertension, hyperlipidemia Respiratory: NONE Gastrointestinal: NONE Hepatic: NONE Renal: NONE Musculoskeletal: chronic back pain Psychiatric: NONE Endocrine: NONE Blood Disorders: NONE Cancer(s): colon/rectal cancer, prostate cancer, SKIN CANCER ANIMAL SKINNER/Reproductive: NONE Surgical History Surgical History: non-contributory Psychosocial History Where Do You Live? Home Services at Home: None Smoking Status: Former Smoker Exam & Diagnostic Data Vital Signs and I&O Vital Signs Date Time Temp Pulse Resp B/P B/P Pulse O2 O2 Flow FiO2 Mean Ox Delivery Rate 12/03 1508 100 90/58 08/ 1440 97.5 110 20 90/58 93 Room Air 12/03 0800 Room Air 12/03 0600 97.4 116 20 100/62 98 Room Air 12/03 0136 120 100/70 /09 0000 Room Air 12/02 2240 94/00 12/02 2102 97.3 114 18 92/00 92 Room Air 12/02 1856 98.1 115 18 102/60 96 Room Air 12/02 1854 95 Room Air 12/02 1823 100 Room Air 12/02 1745 97.8 103 18 103/65 99 Room Air 12/02 1640 98.1 82 18 108/62 100 Room Air Intake & Output 12/03 1600 12/03 0400 12/02 1600 12/02 0400 12/01 1600 12/01 0400 Intake Total 1800 3850 Output Total 80 4 Balance 1720 3846 Intake, IV 1800 3850 Intake, Oral 0 Output, Urine 80 4 Patient 155 lb 155 lb 160 lb Weight Weight Bed scale Estimated Measurement Method Physical Exam: General: Chronically ill appearing, pale, white male, confused, in NAD Skin: No rash or jaundice, skin turgor poor HEENT: Conjunctivae pale, sclerae anicteric, mucous membranes dry Neck: Without masses or thyromegaly, no supraclavicular or cervical adenopathy Chest: Clear to P&A Heart: Irregular rhythm without S3 or rub Abdomen: Soft and nontender without palpable masses or organomegaly Extremities: Without cyanosis or edema Neuro: Disoriented to place and time, no focal findings, +asterixis, no myoclonus Assessment/Plan Assessment/Recommendations Assessment: 77-year-old gentleman with multiple comorbidities including history of prostate CA and colon CA, now comes in with a history of 6-12 months of gradual, generalized deterioration, sudden development of what sounds like a grand mal seizure and the finding of severe AASHISH on admission. The clinical picture would be consistent with severe volume contraction due to poor intake and occasional nausea and vomiting. However there appears to also be an obstructive component as well based on abdominal CT scan which showed retroperitoneal adenopathy or mass obstructing the left urinary tract system while the right side seems to be uninvolved. His recent seizure as well as his confusion may well be on a uremic encephalopathy basis, especially since imaging studies of his brain including an MRI did not reveal any metastatic lesions. CT of the chest, however, does suggest the presence of metastatic pulmonary disease. My suspicion is that we are dealing with metastatic prostate CA. He is not hyper or hypo-calcemic but he does appear to have a metabolic acidosis. Recommendations: 1. Change IV to half-normal saline +75 mEq of sodium bicarbonate per liter at 100 cc/h 2. Obtain records from his urologist (Dr. Nick Broderick) and oncologist (Dr. Brad Gupta Buckner) as to the type and status of his malignancy 3. Urology consultation for possible cystoscopy with stenting -especially if renal function fails to improve with hydration. If stenting not feasible, will need to consider left percutaneous nephrostomy by IR. 4. Blood and urine cultures 5. Given the patient's overall condition and prognosis, I do not believe that dialysis is an appropriate option should his renal function not recover Thank you. Will follow up.
--- NOTE | 2017-12-03 17:15 | ELECTROENCEPHALOGRAM REPORT ---
Electroencephalogram Report Electroencephalogram Results Date of service: 12/03/17 Attending MD: Erlin Wilson MD Operating Room Technologist: Danny Espana EEG Number: [id number] Test Utilizes: 10-20 system, 21 lead 18 channel digital recording Pertinent Hx/Physical/Neuro Findings/Clin Diagnosis: Seizures Inpatient Medications: Current Medications Sig/Dalia Start time Last Medication Dose Route Stop Time Status Admin Dextrose/Sodium 1,000 ML Q10H 12/02 2315 DC 12/03 Chloride IV 0951 Insulin Aspart 0 TIDAC 12/03 1700 AC SC Insulin Aspart 0 TIDAC 12/02 1700 DC 12/02 SC 1802 Insulin Human Regular 0 Q6 12/02 2359 DC 12/03 SC 1205 Levetiracetam 500 MG Q12 12/02 2100 AC 12/03 N/A 1 UNIT IV 1013 Metoprolol Tartrate 6.25 MG BID 12/03 1312 AC PO Ondansetron HCl 0 .STK-MED ONE 12/02 1742 DC .ROUTE Ondansetron HCl 4 MG Q6P PRN 12/02 1730 AC IV Oxycodone HCl 5 MG Q6P PRN 12/03 1230 DC PO Oxycodone HCl 10 MG Q6P PRN 12/03 1230 AC 12/03 PO 1230 Oxycodone HCl 0 .STK-MED ONE 12/03 1228 DC PO Pantoprazole Sodium 40 MG BID 12/02 2100 AC 12/03 IV 1013 Sodium Bicarbonate 75 MEQ Q10H 12/03 1045 AC 12/03 Dextrose/Sodium 1,000 ML IV 1117 Chloride Sodium Chloride 500 ML BOLUS ONE 12/02 2045 DC 12/02 IV 12/02 2144 2042 Sodium Chloride 1,000 ML Q13H 12/02 1730 DC 12/02 IV 1922 Interpretation: The background is low voltage and composed primarily of intermixed theta and delta activity with very occasionally seen intermixed faster activity in the alpha range. Occasional jerks of the extremities were noted and do not correlate with any underlying electrographic discharge or abnormality on attempt at arousing this patient the background remained slow but muscle artifact appeared. This recur during photic stimulation. No epileptiform or lateralized abnormalities found at any time during the test. Impression: Abnormal due to generalized slowing of the backgrounds with no focal or epileptiform features detected. Occasional twitches of the extremities do not correlate with any EEG discharge
--- NOTE | 2017-12-03 22:25 | Cons- Palliative Care ---
General Information and HPI Consulting Request Date of Consult: 12/03/17 Requested By: Erlin Wilson MD Reason for Consult: pain management, non-pain symptom mgmt, care/transition planning Source patient, family, old records, housestaff Exam Limitations no limitations Associated Symptoms: pain, anorexia, weight loss, failure to thrive History of Present Illness: 77M admitted following seizure witnessed by his daughter. Workup since admission reveals acute kidney injury in setting of hydronephrosis. CT imaging of chest/ abdomen/pelvis reveals multiple masses, lymphadenopathy all suggestive of advanved metastatic disease. These findings are present given a history of prostate cancer tx'd with radioactive seeds, and history of colon cancer, tx'd with partial colectomy. Complicating his current hospitalization has been an episode of gi bleeding following tx w/ heparin, and rapid atrial fibrillation. Consultative evaluation thus far has included GI, Nephrology, and Cardiology all of whom have offered medical opinions regarding acute management of the problems relevant to their respective specialties. An oncology consultation remains pending. Workup for seizure including CT, MRI, EEG does not reveal obvious etiology. A family meeting for over 1 hour was held today with the patient and his daughter and two sons to assess their current understanding of the patient's medical condition and to begin clarifying the patient's goals of care. The patient's family members express understanding of the acute medical abnormalities and a desire to learn of the plan for management of these medical conditions. With respect to the findings of malignancy, they desire more information as to be obtained from a consultation so as to be able to decide whether to pursue any additional testing of interventions. At this time, his son indicates that unless there is a substantive intervention or medication that would prove beneficial to the patient by way of cure or significant, objective improvement, they are inclined to forego additional oncologic interventions. That being said, they do wish that the consultative opinions be rendered so as to be able to make informed decisions. At this time, the patient reports he is comfortable - he has utilized oxycodone at home 2-3x daily for chronic back pain - this has been continued while he is hospitalized. There are no other significant symptoms at present It is not clear whether patient will be able to return home without addition of service due to his currently debilitated state. Options to consider with family will likely include comfort only vs. comfort prioritized care at SNF or at home with additional services. Total time of consultation 2 hours, greater than 50% spent in coordination of care and counseling. Allergies/Medications Allergies: Coded Allergies: cefadroxil (Intermediate, NAUSEA 12/02/17) magnesium (Intermediate, DIARRHEA 12/02/17) Home Med List: Atorvastatin Calcium 80 MG TABLET 1 TAB PO DAILY HEART HEALTH (Reported) Clopidogrel Bisulfate (Plavix) 75 MG TABLET 1 TAB PO DAILY HEART HEALTH ( Reported) Furosemide (Lasix) 80 MG TABLET 1 TAB PO DAILY WATER RETENTION (Reported) Metformin HCl (Glucophage) 1,000 MG TABLET 1 TAB PO BID DM (Reported) Nitroglycerin 0.4 MG TAB.SUBL 1 TAB SL DAILY PRN CHEST PAIN (Reported) 1st sign of attack; may repeat every 5 minutes until relief; if pain persists after 3 tablets in 15 minutes, prompt medical att Oxycodone HCl 10 MG TABLET 1 TAB PO BIDP PRN PAIN (Reported) Ranolazine (Ranexa) 1,000 MG TAB.ER.12H 1 TAB PO DAILY HEART HEALTH ( Reported) Current Medications: Current Medications Sig/Dalia Start time Last Medication Dose Route Stop Time Status Admin Dextrose/Sodium 1,000 ML Q10H 12/02 2315 DC 12/03 Chloride IV 0951 Insulin Aspart 0 TIDAC 12/03 1700 AC SC Insulin Aspart 0 TIDAC 12/02 1700 DC 12/02 SC 1802 Insulin Human Regular 0 Q6 12/02 2359 DC 12/03 SC 1205 Levetiracetam 500 MG Q12 12/02 2100 AC 12/03 N/A 1 UNIT IV 2138 Metoprolol Tartrate 6.25 MG BID 12/03 1312 AC 12/03 PO 2138 Ondansetron HCl 4 MG Q6P PRN 12/02 1730 AC IV Oxycodone HCl 5 MG Q6P PRN 12/03 1230 DC PO Oxycodone HCl 10 MG Q6P PRN 12/03 1230 AC 12/03 PO 1230 Oxycodone HCl 0 .STK-MED ONE 12/03 1228 DC PO Pantoprazole Sodium 40 MG BID 12/02 2100 AC 12/03 IV 2138 Sodium Bicarbonate 150 MEQ Q8H 12/03 2045 CAN Dextrose/Sodium 1,000 ML IV Chloride Sodium Bicarbonate 75 MEQ Q10H 12/03 1915 AC Sodium Chloride 1,000 ML IV Sodium Bicarbonate 75 MEQ Q10H 12/03 1045 DC 12/03 Dextrose/Sodium 1,000 ML IV 12/03 2044 1117 Chloride Sodium Chloride 1,000 ML Q13H 12/02 1730 DC 12/02 IV 1922 Review of Systems Review of Systems: chronic pain, weakness, debility Past History Medical History Blood Transfusion Hx Yes Neurological: NONE EENT: NONE Cardiovascular: CAD, hypertension, hyperlipidemia Respiratory: NONE Gastrointestinal: NONE Hepatic: NONE Renal: NONE Musculoskeletal: chronic back pain Psychiatric: NONE Endocrine: NONE Blood Disorders: NONE Cancer(s): colon/rectal cancer, prostate cancer, SKIN 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 Home Who Do You Live With? child Services at Home: None Primary Language: Luxembourgish Smoking Status: Former Smoker Karnofsky Performance Scale: 30 Living Will? unknown Power of Wound Care Physician/HCP? unknown Exam & Diagnostic Data Last 24 Hrs of Vitals/I&Os: Vital Signs Date Time Temp Pulse Resp B/P B/P Pulse O2 O2 Flow FiO2 Mean Ox Delivery Rate 12/03 2138 100 90/58 12/03 1508 100 90/58 12/03 1440 97.5 110 20 90/58 93 Room Air 12/03 0800 Room Air 12/03 0600 97.4 116 20 100/62 98 Room Air 12/03 0136 120 100/70 12/03 0000 Room Air 12/02 2240 94/00 Intake & Output 12/03 1600 12/03 0800 08 0000 Intake Total 637 593 4034 Output Total 30 50 4 Balance 628 046 0738 Intake, IV 451 315 4082 Intake, Oral 0 Output, Urine 30 50 4 Patient 155 lb 155 lb Weight Weight Bed scale Measurement Method Physical Exam: elderly male, in bed, NAD speech fluent w/o dysarthria. moves all 4 extremeties symmetrically Assessment/Plan Assessment 77M w/ advanced metastatic disease - uncertain primary source. Ongoing acute medical issues include kidney injury, oliguria, gi bleeding, atrial fibrillation , recent seizure, chronic back pain Patient's Condition: serious Prognosis: poor Is Patient Decisional? yes Case Discussed With: patient, family, house staff Goals of Care: limited medical treatment Treatment Preferences: 1. Awaiting oncology consultation regarding opinion of pt's prognosis, diagnostic options, treatment 2. Continue managment of acute medical conditions 3. Manage pain and other symptoms as you are doing 4. Once medical workup complete, and assuming acute issues have stabilized, we can address disposition 5. Avoid escalation of care (eg. transfer to ICU for catastrophic change in condition) especially given patient/family preferences. Consult Acknowledgment - Thank you for your consult request.
[2017-12-03 22:51] VITALS: BP 80/60
[2017-12-04 01:47] LABS: ABSOLUTE BASOPHIL COUNT 0 /CUMM (0.0-0.2); ABSOLUTE EOSINOPHIL COUNT 0 /CUMM (0.0-0.7); ABSOLUTE GRANULOCYTE CT 6.9 /CUMM (1.4-6.5); ABSOLUTE LYMPH COUNT 0.6 /CUMM (1.2-3.4); ABSOLUTE MONOCYTE COUNT 0.5 /CUMM (0.10-0.60); BASOPHIL % 0.1 % (0.0-2.0); EOSINOPHIL % 0.1 % (0-5); HEMATOCRIT 26.7 % (42-52); MEAN CORPUSCULAR HGB 31.1 PG (27.0-31.0); MEAN CORPUSCULAR HGB CONC 33.4 G/DL (33.0-37.0); MEAN PLATELET VOLUME 7.2 FL (7.4-10.4); PLATELET COUNT 356 /CUMM (130-400); RBC DISTRIBUTION WIDTH 16.9 % (11.5-14.5); RED BLOOD CELL CT 2.87 /CUMM (4.70-6.10)
--- NOTE | 2017-12-04 06:28 | PN- Housestaff ---
Luther Dozier 12/04/17 0627: Subjective Follow-up For: Metastatic stage IV cancer, prostate cancer, colon cancer, atrial fibrillation, anemia, seizures Complaints: patirent is doing much better today. He was sitting up and talking Tele-Events Since Last Visit: Heart rate was ranging between 110 and 150/98. Atrial fibrillation with rapid ventricular rate. Subjective: Patient was examined at the bedside while he was lying down and talking to his children. Patient said that he feels better. But still continues to feel a little weak. Says that he did not have enough urine output. But denies shortness of breath, chest pain, racing of heart, palpitation, cough. Patient's condition was discussed with the family and outcome of decreased urine output was explained. Family discussion was engaged for further evaluation and management. Review of Systems Constitutional: Reports: malaise, weakness, unexplained weight loss. Denies: chills, diaphoresis, fever. Respiratory: Denies: cough, hemoptysis, orthopnea, short of breath, sputum production, stridor, wheezing. Gastrointestinal: Denies: abdominal pain, constipation, diarrhea. Genitourinary: Reports: see HPI, hematuria. Denies: discharge, dysuria, frequency. Musculoskeletal: Reports: muscle pain. Objective Last 24 Hrs of Vital Signs/I&O Vital Signs Date Time Temp Pulse Resp B/P B/P Pulse O2 O2 Flow FiO2 Mean Ox Delivery Rate 12/04 1456 97.4 132 20 110/72 98 Room Air 12/04 0800 Room Air 12/04 0749 92/60 12/04 0636 97.6 110 20 92/58 93 Room Air 12/04 0000 Room Air 12/03 2251 97.6 127 18 80/60 100 Room Air 12/03 2138 100 90/58 Intake & Output 12/04 1600 12/04 0800 08 0000 Intake Total 883 959 8712 Output Total 40 50 90 Balance 897 144 4845 Intake, IV 528 579 5147 Intake, Oral 240 100 200 Output, Urine 40 50 90 Patient 155 lb Weight Physical Exam General Appearance: Alert, Oriented X3, Cooperative, No Acute Distress Cardiovascular: Normal S1, Normal S2, irregular Lungs: Clear to Auscultation (de), decreased breath siounds at the bases Abdomen: Soft Neurological: Normal Speech Current Medications: Current Medications Sig/Dalia Start time Last Medication Dose Route Stop Time Status Admin Dextrose/Sodium 1,000 ML Q10H 12/04 1500 AC Chloride IV Dextrose/Sodium 1,000 ML Q10H 12/04 0900 DC Chloride IV Docusate Sodium 100 MG DAILY 12/05 0900 AC PO Insulin Aspart 0 TIDAC 12/03 1700 AC 12/04 SC 0833 Levetiracetam 500 MG Q12 12/02 2100 AC 12/04 N/A 1 UNIT IV 0750 Lorazepam 1 MG Q6 PRN 12/04 1430 12/04 PO 1429 Lorazepam 0 .STK-MED ONE 12/04 1427 DC PO Metoprolol Tartrate 6.25 MG BID 12/03 1312 AC 12/03 PO 2138 Ondansetron HCl 4 MG Q6P PRN 12/02 1730 AC IV Oxycodone HCl 10 MG Q6P PRN 12/03 1230 AC 12/04 PO 0750 Pantoprazole Sodium 40 MG BID 12/02 2100 AC 12/04 IV 0750 Patient Medication 1 ED ONE ONE 12/04 1415 DC Teaching ED 12/04 1416 Senna/Docusate Sodium 1 TAB BID 12/04 2100 AC PO Sodium Bicarbonate 75 MEQ Q13H 12/04 1245 AC 12/04 Dextrose/Sodium 1,000 ML IV 1233 Chloride Sodium Bicarbonate 75 MEQ Q10H 12/04 1215 DC 12/04 Dextrose/Sodium 1,000 ML IV 1221 Chloride Sodium Bicarbonate 75 MEQ Q13H 12/04 1000 DC Sodium Chloride 1,000 ML IV Sodium Bicarbonate 150 MEQ Q8H 12/03 2045 CAN Dextrose/Sodium 1,000 ML IV Chloride Sodium Bicarbonate 75 MEQ Q10H 12/03 1915 DC 12/04 Sodium Chloride 1,000 ML IV 0750 Sodium Bicarbonate 75 MEQ Q10H 12/03 1045 DC 12/03 Dextrose/Sodium 1,000 ML IV 12/03 2044 1117 Chloride Last 24 Hrs of Lab/Donell Results Last 24 Hrs of Labs/Mics: Laboratory Tests 12/04/17 0607: Anion Gap 12, Estimated GFR 14 L, BUN/Creatinine Ratio 17.1, Magnesium 1.4 L, CBC w Diff NO MAN DIFF REQ, RBC 2.88 L, MCV 93.2, MCH 31.0, MCHC 33.3, RDW 17.1 H, MPV 7.3 L, Gran % 86.8 H, Lymphocytes % 7.3 L, Monocytes % 5.7, Eosinophils % 0.2, Basophils % 0, Absolute Granulocytes 6.4, Absolute Lymphocytes 0.5 L, Absolute Monocytes 0.4, Absolute Eosinophils 0, Absolute Basophils 0 12/04/17 0100: Anion Gap 13, Estimated GFR 12 L, BUN/Creatinine Ratio 15.9, CBC w Diff NO MAN DIFF REQ, RBC 2.87 L, MCV 93.0, MCH 31.1 H, MCHC 33.4, RDW 16.9 H, MPV 7.2 L , Gran % 86.0 H, Lymphocytes % 7.9 L, Monocytes % 5.9, Eosinophils % 0.1, Basophils % 0.1, Absolute Granulocytes 6.9 H, Absolute Lymphocytes 0.6 L, Absolute Monocytes 0.5, Absolute Eosinophils 0, Absolute Basophils 0 Microbiology 12/03 190 URINE ROUT: Urine Culture - CAN Cancelled: NO SAMPLE COLLECTED Assessment/Plan Assessment: 77-year-old male with PMH HTN, DM 2, HLD, CAD, post CABG 2002, prostate cancer S/P chemo and radiotherapy , colon cancer in 2010 with colonoscopy in 08/2017, with multiple surgeries came with history of GTCS. Workup revealed uremia with obstructive uropathy, AASHISH. old records also show para-aortic lymphadenopathy on a CT from November 2016, CXR from 08/2017 shows no evidence of nodules or metastases. 1) ACute on chronic kidney injury Creatinine is 4.1 , GFR- 14 L- stage G5 Decreased total urine output. Nephrology - Continue IV fluids, with sodium bicarbonate, and Dr. Gilman said that patient might require left percutaneous nephrostomy if renal function does not improve until next week. 2) ACute Left sided Hydroureteronephrosis- -Urology consulted for obstructive nephropathy- stated that patient has minimal left hydronephrosis and normal right kidney, and unlikely is causing acute renal failure. Looks like picture of dehydration causing elevation in creatinine. Recommended hydration and close monitoring -considering stenting of ureter only if there is no significant improvement monitor UO 3) New onset seizure- - CT, MRI negative -EEG- generalized slowing of the backgrounds with no focal or epileptiform features - Patient is currently on Keppra, more likely due to uremia - Did not have any further episodes of Seizures 4)Atrial fibrillation - Patient is in RVR, [id number] atleast 6, Starte metoprolol 5mg iv for controlling HR No further increase in metoprolol dosing due to risk of hypotension. Observe heart rate, tolerate some mild permissive tachycardia for normal ANticoagulation needs to be initiated , after assessing risk of bleeding in the GI Recommend echocardiogram Monitor Vitals 5) Upper GI bleed-- coffee ground emesis- - No further episodes of Emesis - Heparin may be restarted over the weekend, watch fopr hematemesis 6)ANemia- normocytic- iron deficiency - due to GI bleed - receievd 1 prbc yesterday evening - HB- 8.9,stable , will monitor CBC 12 th hourly - 7)Metastatic disease with unknown primary malignancy- -oxycodone 10 mg being given, Start Senna and Colace to prevent opioid induced constipation - Palliative care consulted - H/O Prostate cancer and colon cancer, with retroperitoneal mass and multiple mets in the lungs -Manage pain and other symptoms as per DR Ayala Problem List: 1. AASHISH (acute kidney injury) 2. Tonic clonic seizures 3. New onset a-fib 4. Metastasis Pain Ratin Pain Location: back Pain Goal: Remain pain free Pain Plan: oxycodone Tomorrow's Labs & Rationales: CBC, BEP, MG, Phosphorous SdergErlin bowers MD 12/04/17 1052: Attending MD Review Statement Attending Statement Attending MD Statement: examined this patient, discuss w/resident/PA/[employer], agreed w/resident/PA/[employer], reviewed EMR data (avail) Attending Assessment/Plan: 77M PMH T2DM, HTN, HLD, CAD s/p DC and CABG 2002, history of prostate cancer s/p chemotherapy and radioactive seeding, history of colon cancer s/p sigmoidectomy 2010, last colonoscopy 05/2017 was normal, history of multiple back surgeries, currently mostly wheelchair bound due to back pain and deconditioning, presented initially with weakness, lethargy, visual hallucinations, and witnessed tonic- clonic seizure at home. Workup revealed uremia, obstructive uropathy, and AASHISH, which may be causing his encephalopathy and seizure. He also has extensive retroperitoneal metastatic disease and lung metastases with unknown primary malignancy. CT and MRI of the head were negative. Patient was found to be in atrial fibrillation but this is not new and is present on old records. Old records also show para-aortic lymphadenopathy on a CT from November 2016, CXR from 08/2017 shows no evidence of nodules or metastases. Goals of care discussion was had with family at baseline. Ultimate concern right now is improvement in renal function and functional status. The family is unsure about proceeding with biopsy and tissue diagnosis of metastases, and are strongly leaning against chemotherapy or any surgery, as they believe this will only prolong his agony and suffering. Further discussions will be required and the family is being given time to discuss and process the information. Patient looks and feels much better today. He is much more awake and alert. He reports some leg stiffness but his pain is much improved. Still with oliguria, creatinine slightly improved to 4.1 today, no further evidence of seizures. Per urology, no acute intervention is needed at this time. Per oncology, biopsy and tissue diagnosis is necessary to stage and give prognosis on malignancy. Family is not interested in biopsy at this time as they feel it will only increase his suffering. Records from his oncologist show multiple treatments for prostate cancer over a decade. 1. Uremic encephalopathy 2. 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 Metastatic disease with unknown primary malignancy 4. Lung metastases with bilateral malignant effusions 5. AASHISH secondary to obstructive uropathy and dehydration 6. Chronic atrial fibrillation 7. Deconditioning 8. Moderate protein calorie malnutrition Plan - Discontinue telemetry - Follow nephrology, urology, palliative care, and cardiology recommendations - Monitor urine output - Hold anti-coagulation for now due to hematemesis - Continue Keppra - Oxycodone 10mg q6h PRN pain, montior for sedation - Start Senna and Colace to prevent opioid induced constipation - Regular diet - Continue home medications - DVT PPx with ALPS - Will continue to monitor renal function. Plan is to improve renal function and urine output, thought at this time to be pre-renal and not obstructive, with eventual discussions with family and patient. Per prior discussions, likelihood is for home hospice rather than aggressive treatment.
[2017-12-04 06:36] VITALS: BP 92/58
[2017-12-04 07:43] LABS: ABSOLUTE BASOPHIL COUNT 0 /CUMM (0.0-0.2); ABSOLUTE EOSINOPHIL COUNT 0 /CUMM (0.0-0.7); ABSOLUTE GRANULOCYTE CT 6.4 /CUMM (1.4-6.5); ABSOLUTE LYMPH COUNT 0.5 /CUMM (1.2-3.4); ABSOLUTE MONOCYTE COUNT 0.4 /CUMM (0.10-0.60); BASOPHIL % 0 % (0.0-2.0); EOSINOPHIL % 0.2 % (0-5); GRANULOCYTE % 86.8 % (42.2-75.2); HEMATOCRIT 26.8 % (42-52); MEAN CORPUSCULAR HGB CONC 33.3 G/DL (33.0-37.0); MEAN CORPUSCULAR VOLUME 93.2 FL (80.0-94.0); MEAN PLATELET VOLUME 7.3 FL (7.4-10.4); PLATELET COUNT 339 /CUMM (130-400); RBC DISTRIBUTION WIDTH 17.1 % (11.5-14.5); RED BLOOD CELL CT 2.88 /CUMM (4.70-6.10)
--- NOTE | 2017-12-04 07:51 | Event Note ---
Event Note Event Note: History of prostate cancer - 1995-history of prostate cancer, PSA 11 and [place] 7 status post neoadjuvant hormone and EBRT 1999-failure with rising PSA-4 status post salvage brachytherapy 2010-PSA rise started Lupron 2015-PSA rise to 7 given Casodex and PSA dropped to 7.5 2016-PSA up to 6.27 April 2017-starting losing weight 30 LB, urine retention with Santos, fatigue, PSA 7 May 20, 2017-bone imaging [id number] L5 metastasis May 2017-restarted on LHRH injection with Dr. Saenz June 2017-systolic blood pressure 78 with lightheadedness, PSA 5, hemoglobin dropped to 9.5 with creatinine 2, bone pain, on July-hemoglobin higher on erythropoietin but still tired, bone pain at L5. Was on Procrit 40,000 units. August 2017-chest x-ray showed infiltrate, no nodule History of spinal stenosis Type 2 diabetes Coronary artery disease status post CABG 1979, status post [place] in November 2016 DVT of the right leg 2016 Urologist-Dr. Saenz PCP - Oncologist-Dr. Bernal
--- NOTE | 2017-12-04 08:47 | Cons- Urology ---
General Information and HPI Consulting Request Date of Consult: 12/03/17 Requested By: Erlin Wilson MD Reason for Consult: acute renal failure: left hydronephrosis Source of Information: patient, old records History of Present Illness: Pt with decreasing Urine output: CT reviewed. Patient is a 77-year-old male EHSAN from home with an episode of tonic-clonic activity witnessed by the daughter. Most of the history is taken from the daughter as the patient was feeling very sick. According to the daughter patient was losing his weight since last 1 year. Since last 6 months he is wheelchair-bound and on Santos catheter. Since last 3-4 weeks he is very anorexic and having nausea and vomiting intermittently. It got worse since last 2 or 3 days. Yesterday night he was complaining of pain and stiffness. She gave him 1 tablet of 10 mg of Percocet. He slept all over the night. In the morning he did not wake up early. Later in the day around 10-11, when daughter, went to see him downstairs he was having tonic and clonic movements all over the body along with up rolling of eyes and frothing from the mouth. It was lasted for around 30 seconds. They called the ambulance and brought him to the hospital.At the time of presentation patient was minimally responsive to painful stimuli, his SPO2 was 99% on room air. EKG did show evidence of atrial fibrillation and wide QRS complex. Patient had indwelling Santos catheter with dark and cloudy urine. It was changed in ED. He was on multiple antihypertensive medication but recently, a week ago was seen by primary care provider and found to have low blood pressure and CHF. Antihypertensive was stopped and he was given tablet Lasix 80 mg daily. According to the family patient was having history of type 2 diabetes previously on multiple medication and now it was decreased down to tablet metformin thousand milligrams twice daily. Allergies/Medications Allergies: Coded Allergies: cefadroxil (Intermediate, NAUSEA 12/02/17) magnesium (Intermediate, DIARRHEA 12/02/17) Home Med List: Atorvastatin Calcium 80 MG TABLET 1 TAB PO DAILY HEART HEALTH (Reported) Clopidogrel Bisulfate (Plavix) 75 MG TABLET 1 TAB PO DAILY HEART HEALTH ( Reported) Furosemide (Lasix) 80 MG TABLET 1 TAB PO DAILY WATER RETENTION (Reported) Metformin HCl (Glucophage) 1,000 MG TABLET 1 TAB PO BID DM (Reported) Nitroglycerin 0.4 MG TAB.SUBL 1 TAB SL DAILY PRN CHEST PAIN (Reported) 1st sign of attack; may repeat every 5 minutes until relief; if pain persists after 3 tablets in 15 minutes, prompt medical att Oxycodone HCl 10 MG TABLET 1 TAB PO BIDP PRN PAIN (Reported) Ranolazine (Ranexa) 1,000 MG TAB.ER.12H 1 TAB PO DAILY HEART HEALTH ( Reported) Current Medications: Current Medications Sig/Dalia Start time Last Medication Dose Route Stop Time Status Admin Dextrose/Sodium 1,000 ML Q10H 12/02 2315 DC 12/03 Chloride IV 0951 Insulin Aspart 0 TIDAC 12/03 1700 AC 12/04 SC 0833 Insulin Human Regular 0 Q6 12/02 2359 DC 12/03 SC 1205 Levetiracetam 500 MG Q12 12/02 2100 AC 12/04 N/A 1 UNIT IV 0750 Metoprolol Tartrate 6.25 MG BID 12/03 1312 AC 12/03 PO 2138 Ondansetron HCl 4 MG Q6P PRN 12/02 1730 AC IV Oxycodone HCl 5 MG Q6P PRN 12/03 1230 DC PO Oxycodone HCl 10 MG Q6P PRN 12/03 1230 AC 12/04 PO 0750 Oxycodone HCl 0 .STK-MED ONE 12/03 1228 DC PO Pantoprazole Sodium 40 MG BID 12/02 2100 AC 12/04 IV 0750 Sodium Bicarbonate 150 MEQ Q8H 12/03 2045 CAN Dextrose/Sodium 1,000 ML IV Chloride Sodium Bicarbonate 75 MEQ Q10H 12/03 1915 AC 12/04 Sodium Chloride 1,000 ML IV 0750 Sodium Bicarbonate 75 MEQ Q10H 12/03 1045 DC 12/03 Dextrose/Sodium 1,000 ML IV 12/03 2044 1117 Chloride Past History Medical History Blood Transfusion Hx: Yes Neurological: NONE EENT: NONE Cardiovascular: CAD, hypertension, hyperlipidemia Respiratory: NONE Gastrointestinal: NONE Hepatic: NONE Renal: NONE Musculoskeletal: chronic back pain Psychiatric: NONE Endocrine: NONE Blood Disorders: NONE Cancer(s): colon/rectal cancer, prostate cancer, SKIN CANCER 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 Home Who Do You Live With? child Services at Home: None Primary Language: Czech Smoking Status: Former Smoker Living Will? unknown Power of Tool And Die Maker Level Five/HCP? unknown Employment History Retired? unknown Exam & Diagnostic Data Vital Signs and I&O Vital Signs Date Time Temp Pulse Resp B/P B/P Pulse O2 O2 Flow FiO2 Mean Ox Delivery Rate 12/04 0749 92/60 12/04 0636 97.6 110 20 92/58 93 Room Air 12/04 0000 Room Air 12/03 2251 97.6 127 18 80/60 100 Room Air 12/03 2138 100 90/58 12/03 1508 100 90/58 12/03 1440 97.5 110 20 90/58 93 Room Air Intake & Output 12/04 1600 12/04 0800 12/04 0000 12/03 1600 12/03 0812/03 0000 Intake Total 900 1200 296 682 5822 Output Total 50 90 30 50 4 Balance 850 1110 810 418 3270 Intake, IV 800 1000 117 134 6932 Intake, Oral 100 200 0 Output, Urine 50 90 30 50 4 Patient 155 lb 155 lb 155 lb Weight Weight Bed scale Measurement Method Physical Exam General Appearance: well developed/nourished, no apparent distress Head: atraumatic Respiratory: decreased breath sounds Cardiovascular: regular rate/rhythm Gastrointestinal: normal bowel sounds, soft Back: no vertebral tenderness Extremities: normal inspection Last 24 Hours of Labs: Laboratory Tests 12/04 12/04 0607 0100 Chemistry Sodium (137 - 145 mmol/L) 133 L 134 L Potassium (3.5 - 5.1 mmol/L) 4.3 4.6 Chloride (98 - 107 mmol/L) 105 104 Carbon Dioxide (22 - 30 mmol/L) 17 L 17 L Anion Gap (5 - 16) 12 13 BUN (9 - 20 mg/dL) 70 H 73 H Creatinine (0.7 - 1.2 mg/dL) 4.1 H 4.6 H Estimated GFR (>60 ml/min) 14 L 12 L BUN/Creatinine Ratio (7 - 25 %) 17.1 15.9 Magnesium (1.6 - 2.3 mg/dL) 1.4 L Hematology CBC w Diff Pending NO MAN DIFF REQ WBC (4.8 - 10.8 /CUMM) Pending 8.0 RBC (4.70 - 6.10 /CUMM) Pending 2.87 L Hgb (14.0 - 18.0 G/DL) Pending 8.9 L Hct (42 - 52 %) Pending 26.7 L MCV (80.0 - 94.0 FL) Pending 93.0 MCH (27.0 - 31.0 PG) Pending 31.1 H MCHC (33.0 - 37.0 G/DL) Pending 33.4 RDW (11.5 - 14.5 %) Pending 16.9 H Plt Count (130 - 400 /CUMM) Pending 356 MPV (7.4 - 10.4 FL) Pending 7.2 L Gran % (42.2 - 75.2 %) Pending 86.0 H Lymphocytes % (20.5 - 51.1 %) Pending 7.9 L Monocytes % (1.7 - 9.3 %) Pending 5.9 Eosinophils % (0 - 5 %) Pending 0.1 Basophils % (0.0 - 2.0 %) Pending 0.1 Absolute Granulocytes (1.4 - 6.5 /CUMM) Pending 6.9 H Absolute Lymphocytes (1.2 - 3.4 /CUMM) Pending 0.6 L Absolute Monocytes (0.10 - 0.60 /CUMM) Pending 0.5 Absolute Eosinophils (0.0 - 0.7 /CUMM) Pending 0 Absolute Basophils (0.0 - 0.2 /CUMM) Pending 0 08/09 1227 Urines Urine Color (YEL,AMB,STR) ORANG H Urine Clarity (CLEAR) CLDY H Urine pH (5.0 - 8.0) 6.0 Ur Specific [place] (1.001 - 1.035) >= 1.030 Urine Protein (NEG,<30 MG/DL) >=300 H Urine Ketones (NEG) NEG Urine Nitrite (NEG) NEG Urine Bilirubin (NEG) NEG@ICTO Urine Urobilinogen (0.1 - 1.0 EU/dl) 0.2 Ur Leukocyte Esterase (NEG) MOD H Ur Microscopic SEDIMENT EXAMINED Urine RBC (0 - 5 /HPF) 15-25 H Urine WBC (0 - 2 /HPF) PACKD H Ur Epithelial Cells (NONE,FEW) FEW Urine Bacteria (NEG/NONE) PACKD H Urine Hemoglobin (NEG) LARGE H Urine Glucose (N MG/DL) NEG Imaging Results: PATIENT: MARTIN MALDONADO PRESENT AGE: 77 PATIENT ACCOUNT NO: [id number] : 40 LOCATION: [facility] ORDERING PHYSICIAN: Darshan GOMEZ SERVICE DATE: 12/02/17 EXAM TYPE: CAT - CT ABD & PELVIS W/O IV CONTRAS; CT CHEST WO IV CONTRAST EXAMINATION: CT CHEST, ABDOMEN AND PELVIS WITHOUT CONTRAST CLINICAL INFORMATION: Acute mental status change. Witnessed seizure. Renal insufficiency. COMPARISON: CT scan of the abdomen and pelvis dated 03/17/2010. TECHNIQUE: Multidetector volumetric imaging was performed from the base of the neck through the pubic symphysis. Sagittal and coronal reformatted images were obtained on the technologist workstation. DLP: 409.67 mGy-cm. FINDINGS: CT SCAN OF THE CHEST: LUNGS: There are multiple bilateral variably sized nodules and masses in the lungs bilaterally, all demonstrating irregular contours and somewhat spiculated margins, ranging in size between a few millimeters and up to 2.5 x 1.1 cm in the right lower lobe (series 4, image 374) and 1.8 x 1.2 cm in the left upper lobe (series 4, image 118). These raise the suspicion of diffuse metastatic disease, especially in light of the findings in the abdomen (see below). Differential would, however, also include inflammatory nodules or infectious nodules related to bilateral or fungal pneumonia or septic emboli. Large bilateral layering pleural effusions are seen, extending up to the lung apices. There is associated significant volume loss and atelectasis in both lower lobes and mild atelectatic changes in both upper lobes and in the right middle lobe. There is underlying moderate centrilobular emphysema. Layering mucus or debris is seen within the upper thoracic trachea. The central airways are otherwise patent. Mild diffuse thickening of the small airways is noted. No pneumothorax. LYMPHOVASCULAR STRUCTURES: Aortic size normal. Moderate atherosclerotic calcifications of the aorta and great vessels noted. The cardiac silhouette is enlarged with primarily left ventricular and left atrial enlargement noted. Mitral annular calcifications is seen and severe coronary artery calcifications are noted, especially involving the left main, left anterior descending and left circumflex coronary arteries. Subtle aortic valvular calcifications are also seen. No pericardial effusion. There is a tiny locule of air seen within the left brachiocephalic vein (series 2, image 11), possibly introduced iatrogenically. There is a borderline enlarged right lower paratracheal lymph node, measuring 1 cm in short axis. Other subcentimeter sized mediastinal and bilateral hilar lymph nodes are noted. THYROID GLAND: There is a 1.0 x 0.9 cm peripherally rim calcified nodule seen in the right lobe of the thyroid gland. Remainder of the thyroid gland is slightly atrophic. BONES: Mild vertebral spondylosis is seen in the mid and lower thoracic spine. Moderate vertebral spondylosis seen at the thoracolumbar junction. No suspicious focal findings. CT SCAN OF THE ABDOMEN AND PELVIS: LIVER, GALLBLADDER, AND BILIARY TREE: The liver is normal in size, shape, and attenuation. No focal hepatic lesion on noncontrast imaging. No biliary ductal dilatation is present. The gallbladder is hydropic, measuring 5.6 cm in maximal transverse dimension. No evidence of radiopaque gallstones, gallbladder wall thickening, or obvious pericholecystic inflammatory changes. PANCREAS: Diffusely atrophic and poorly visualized but otherwise grossly unremarkable. SPLEEN: Unremarkable on noncontrast imaging. ADRENAL GLANDS: Both adrenal glands are enlarged. There is a 3.2 x 2.9 cm diameter mass in the left adrenal gland, measuring 7.8 Hounsfield units. A smaller 3.0 x 1.9 cm right adrenal mass is seen, measuring 3.7 Hounsfield units. These findings are both new compared to the 2010 exam and may represent benign adrenal hypertrophy or benign adrenal masses, such as adrenal adenomas. KIDNEYS AND URETERS; LYMPH NODES, VASCULAR: The kidneys are normal in size, shape, and attenuation. There is moderate bilateral perinephric stranding. No right-sided hydronephrosis, hydroureter, or calculi seen. No left renal calculi seen. There is moderate left-sided hydroureteronephrosis. The dilated left ureter can be followed to the L3 level, where an obstructing amorphous and ill-defined periaortic soft tissue density mass is seen. Evaluation is limited on noncontrast study. Evaluation is also limited due to extensive posterior spinal fusion hardware-related beam hardening artifact, which causes artificial linearly oriented density in this region. There is a subtle 1.4 cm diameter peripherally rim calcified nodular density seen within this retroperitoneal mass (series 2, image 82). The mass is contiguous with the left psoas muscle, which is asymmetrically larger compared to the contralateral side. There is anterior mass effect upon the crossing duodenum and other small bowel. The aorta and IVC are completely encased by this mass. Dense atherosclerotic calcifications of the aorta are seen. There is mass extension along the proximal common iliac arteries, left greater than right. Findings are suspicious for matted lymphadenopathy in the retroperitoneum. Differential would also include retroperitoneal fibrosis. There is a small amount of presacral edema seen in the pelvis. BLADDER: Decompressed by a Santos catheter and therefore not adequately assessed. PELVIC VISCERA: Multiple prostate seed implants are seen in place. Prostate gland is not enlarged. Seminal vesicles are poorly visualized and is significantly atrophic. GASTROINTESTINAL TRACT: The small and large bowel are unremarkable. The appendix is unremarkable. ABDOMINAL WALL: No significant hernia is appreciated. The patient is cachectic. There is mild anasarca in the soft tissues. OSSEOUS STRUCTURES: 3 right hip nails are in place. Mild degenerative changes are seen in the hip joints and sacroiliac joints. The patient is status post laminectomy and posterior spinal fusion at L3-4 and L4-5 with grade 1 anterolistheses of L4 on 5 and grade 1 retrolistheses of L5 on S1 seen. No suspicious bone findings. IMPRESSION: 1. Abnormal extensive retroperitoneal soft tissue mass is seen encasing the aorta and IVC, causing obstruction of the left mid ureter and resultant moderate left-sided hydroureteronephrosis. Findings are suspicious for matted retroperitoneal adenopathy. In a patient with history of prostate cancer, metastatic disease must be excluded. Please correlate with PSA levels and clinical history. Other differential possibilities would include retroperitoneal fibrosis or other retroperitoneal neoplastic process. 2. Multiple bilateral irregularly shaped and variably sized nodules and masses are seen in the lungs bilaterally, suspicious for metastatic disease. Differential would also include diffuse inflammatory nodules or infectious nodules (viral or fungal infections). Close clinical correlation is requested. 3. Large bilateral pleural effusions with associated volume loss and atelectasis in both lower lobes. 4. Bilaterally enlarged nodular adrenal glands, new from 2010. The appearance is, however, more suggestive of benign adrenal hypertrophy or adrenal adenomas. 5. Peripherally rim calcified 1 cm nodule in the right lobe of the thyroid gland. 6. Hydropic gallbladder, which is otherwise unremarkable. Assessment/Plan Assessment/Plan Pt with renal failure due to PRE-RENAL dehydration vs obstruction/Recommend hydrating pt aggressively as possible and monitor BUN/Creat closely. Minor left hydronephrosis without stone/tumor seen very unlikely to be cause of ARF and low urine output at the RIGHT kidney appears normal and unobstructed. Copies To: Kj Guzman MD Consult Acknowledgment - Thank you for your consult request. Attending MD Review Statement Attending Statement Attending MD Statement: examined this patient, discuss w/resident/PA/OIL FIELD EQUIPMENT MECHANIC Attending Assessment/Plan: Pt with minimal left hydro. and normal right kidney: post renal ARF unlikely to be cause of acute renal failure: in comparing previous BUN/Creatinine vs this admission, the indicators for dehydration clearly parallels the elevation in creatinine thus the pre-renal failure. Recommend hydration and close monitoring for now. Discussed this finding with Pt and both his sons at the bedside. Pt in NO discomfort but has had significant wt. loss for unkonw reason recently, and lung nodules/mets-recommend evaluating for malignancy and oncology consult.
[2017-12-04 09:17] LABS: WHITE BLOOD CELL COUNT 7.3 /CUMM (4.8-10.8)
--- NOTE | 2017-12-04 10:00 | PN- Cardiology ---
Subjective Subjective: Patient is resting comfortably. Still has some cough but denies any associated hemoptysis at this time. Objective Vital Signs and I&Os Vital Signs Date Time Temp Pulse Resp B/P B/P Pulse O2 O2 Flow FiO2 Mean Ox Delivery Rate 12/04 0749 92/60 / 0636 97.6 110 20 92/58 93 Room Air 08 0000 Room Air 12/03 2251 97.6 127 18 80/60 100 Room Air 12/03 2138 100 90/58 / 1508 100 90/58 / 1440 97.5 110 20 90/58 93 Room Air Intake & Output 12/04 1600 12/04 0800 08 0000 12/03 1600 12/03 0800 12/03 0000 Intake Total 900 1200 242 455 5924 Output Total 50 90 30 50 4 Balance 850 1110 236 308 8207 Intake, IV 800 1000 167 505 0949 Intake, Oral 100 200 0 Output, Urine 50 90 30 50 4 Patient 155 lb 155 lb 155 lb Weight Weight Bed scale Measurement Method Physical Exam: General: no apparent distress. Alert. Eyes: No obvious scleral icterus. HEENT: No jugular venous distention or abnormal jugular venous pulsations. Cardiovascular: Normal intensity S1/S2. Irregular Respiratory: Decreased air entry at the bases Abdomen: no guarding or rebound tenderness. Musculoskeletal: No clubbing or cyanosis noted Skin: warm Current Medications: Current Medications Sig/Dalia Start time Last Medication Dose Route Stop Time Status Admin Dextrose/Sodium 1,000 ML Q10H 12/04 0900 AC Chloride IV Dextrose/Sodium 1,000 ML Q10H 12/02 2315 DC 12/03 Chloride IV 0951 Insulin Aspart 0 TIDAC 12/03 1700 AC 12/04 SC 0833 Insulin Human Regular 0 Q6 12/02 2359 DC 12/03 SC 1205 Levetiracetam 500 MG Q12 12/02 2100 AC 12/04 N/A 1 UNIT IV 0750 Metoprolol Tartrate 6.25 MG BID 12/03 1312 AC 12/03 PO 2138 Ondansetron HCl 4 MG Q6P PRN 12/02 1730 AC IV Oxycodone HCl 5 MG Q6P PRN 12/03 1230 DC PO Oxycodone HCl 10 MG Q6P PRN 12/03 1230 AC 12/04 PO 0750 Oxycodone HCl 0 .STK-MED ONE 12/03 1228 DC PO Pantoprazole Sodium 40 MG BID 12/02 2099 AC 12/04 IV 0750 Sodium Bicarbonate 150 MEQ Q8H 12/03 2044 CAN Dextrose/Sodium 1,000 ML IV Chloride Sodium Bicarbonate 75 MEQ Q10H 12/03 191 AC 12/04 Sodium Chloride 1,000 ML IV 0750 Sodium Bicarbonate 75 MEQ Q10H 12/03 1045 DC 12/03 Dextrose/Sodium 1,000 ML IV 12/04 2043 1117 Chloride Results Last 48 Hrs of Labs/Mics: Laboratory Tests 12/04/17 0607: Anion Gap 12, Estimated GFR 14 L, BUN/Creatinine Ratio 17.1, Magnesium 1.4 L, CBC w Diff NO MAN DIFF REQ, RBC 2.88 L, MCV 93.2, MCH 31.0, MCHC 33.3, RDW 17.1 H, MPV 7.3 L, Gran % 86.8 H, Lymphocytes % 7.3 L, Monocytes % 5.7, Eosinophils % 0.2, Basophils % 0, Absolute Granulocytes 6.4, Absolute Lymphocytes 0.5 L, Absolute Monocytes 0.4, Absolute Eosinophils 0, Absolute Basophils 0 12/04/17 0100: Anion Gap 13, Estimated GFR 12 L, BUN/Creatinine Ratio 15.9, CBC w Diff NO MAN DIFF REQ, RBC 2.87 L, MCV 93.0, MCH 31.1 H, MCHC 33.4, RDW 16.9 H, MPV 7.2 L , Gran % 86.0 H, Lymphocytes % 7.9 L, Monocytes % 5.9, Eosinophils % 0.1, Basophils % 0.1, Absolute Granulocytes 6.9 H, Absolute Lymphocytes 0.6 L, Absolute Monocytes 0.5, Absolute Eosinophils 0, Absolute Basophils 0 12/03/17 1227: Urine Color ORANG H, Urine Clarity CLDY H, Urine pH 6.0, Ur Specific [place] > = 1.030, Urine Protein >=300 H, Urine Ketones NEG, Urine Nitrite NEG, Urine Bilirubin NEG@ICTO, Urine Urobilinogen 0.2, Ur Leukocyte Esterase MOD H, Ur Microscopic SEDIMENT EXAMINED, Urine RBC 15-25 H, Urine WBC PACKD H, Ur Epithelial Cells FEW, Urine Bacteria PACKD H, Urine Hemoglobin LARGE H, Urine Glucose NEG 12/03/17 0621: Anion Gap 15, Estimated GFR 13 L, BUN/Creatinine Ratio 16.4, Magnesium 1.6, Total PSA 5.23 H, CBC w Diff NO MAN DIFF REQ, RBC 2.99 L, MCV 93.5, MCH 31.6 H, MCHC 33.8, RDW 16.6 H, MPV 7.2 L, Gran % 83.4 H, Lymphocytes % 10.1 L, Monocytes % 6.5, Eosinophils % 0, Basophils % 0, Absolute Granulocytes 7.7 H, Absolute Lymphocytes 0.9 L, Absolute Monocytes 0.6, Absolute Eosinophils 0, Absolute Basophils 0 12/03/17 0600: Carcinoembryonic Ag 21.3 H 12/03/17 0010: CBC w Diff MAN DIFF ORDERED, RBC 2.94 L, MCV 92.8, MCH 31.2 H, MCHC 33.6, RDW 16.3 H, MPV 7.4, Gran % 89.4 H, Lymphocytes % 6.7 L, Monocytes % 3.9, Eosinophils % 0, Basophils % 0, Absolute Granulocytes 7.9 H, Segmented Neutrophils 93 H, Absolute Lymphocytes 0.6 L, Lymphocytes 4 L, Monocytes 3, Absolute Monocytes 0.3, Absolute Eosinophils 0, Absolute Basophils 0, Platelet Estimate INCREASED, Polychromasia 1+, Poikilocytosis 2+, Ovalocytes 1+, [place] Cells 1+, Fld Total RBCs Counted 100 12/02/17 1820: Lactic Acid 2.7 H 12/02/17 1820: Hemoglobin A1c 5.4, TSH 3.570 12/02/17 1531: Stool Occult Blood Cancelled 12/02/17 1450: Lactic Acid Cancelled 12/02/17 1431: Urine Color Cancelled, Urine Clarity Cancelled, Urine pH Cancelled, Ur Specific [place] Cancelled, Urine Protein Cancelled, Urine Ketones Cancelled, Urine Nitrite Cancelled, Urine Bilirubin Cancelled, Urine Urobilinogen Cancelled, Ur Leukocyte Esterase Cancelled, Ur Microscopic Cancelled, Urine Hemoglobin Cancelled, Urine Glucose Cancelled 12/02/17 1234: Ammonia < 9 L 12/02/17 1234: Anion Gap 16, Estimated GFR 12 L, BUN/Creatinine Ratio 15.9, Glucose 141 H, Lactic Acid 2.9 H, Calcium 8.5, Total Bilirubin 1.0, AST 29, ALT 17 L, Alkaline Phosphatase 126, Creatine Kinase 76, Troponin I 0.08, Total Protein 6.5 , Albumin 3.2 L, Globulin 3.3, Albumin/Globulin Ratio 1.0 L, Prolactin 46.9 H , CBC w Diff MAN DIFF ORDERED, RBC 2.78 L, MCV 93.9, MCH 31.9 H, MCHC 33.9, RDW 15.7 H, MPV 7.0 L, Gran % 92.5 H, Lymphocytes % 5.2 L, Monocytes % 2.1, Eosinophils % 0, Basophils % 0.2, Absolute Granulocytes 7.2 H, Absolute Lymphocytes 0.4 L, Absolute Monocytes 0.2, Absolute Eosinophils 0, Absolute Basophils 0, Platelet Estimate VERIFIED BY SMEAR, Polychromasia 1+, Anisocytosis 1+ 12/02/17 1150: Methadone Screen Cancelled, Barbiturate Screen Cancelled, Ur Phencyclidine Scrn Cancelled, Amphetamines Screen Cancelled, U Benzodiazepines Scrn Cancelled, Urine Cocaine Screen Cancelled, Urine Cannabis Screen Cancelled Recent Imaging Studies: Telemetry tracings were personally reviewed and revealed atrial flutter with mild tachycardia Assessment/Plan Assessment/Plan 1. 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 ischemic cardiomyopathy/HFrEF (last echo 06/30/2017 LVEF 45-50%) 3. PAD status post femoral stenting 4. hypertension 5. hyperlipidemia 6. diabetes 7. spinal stenosis 8. arthritis 9. prostate cancer s/p chemotherapy and sead implants, as per CT chest/abdomen/ pelvis current concern for metastatic disease 10. Possible seizure 11. Newly diagnosed atrial fibrillation/flutter, not currently on anti- coagulation due to coffee-ground emesis while in the emergency room 12. Acute renal failure Patient reports no hemoptysis/hematemesis today. Patient remains mildly tachycardic but blood pressure will not currently tolerate increasing the beta- oskar at this time. Hesitant to add digoxin for now given the renal failure. Would allow for some mild permissive tachycardia for now as he has no associated symptoms at this time. Consider initiating anticoagulation when cleared given elevated chads vasc score. Recommend obtaining echocardiogram given the new arrhythmia. Joby Spain MD [facility] Continue telemetry? Yes
--- NOTE | 2017-12-04 12:35 | PN- Nephrology ---
Assessment/Plan Nephrology Assessment: 1. AASHISH secondary to severe dehydration with an element of urinary tract obstruction due to retroperitoneal mass 2. Probable metastatic disease with high CEA, suggesting primary might be colon CA (status post resection 2010) 3. General deterioration over the past 6-12 months Suggestion: 1. Continue IV fluids with sodium bicarbonate for the next few days 2. If renal function does not continue to improve will need to consider left percutaneous nephrostomy next week. However, would instead strongly consider hospice care Subjective Subjective: Patient remains confused with his primary complaints being episodic headache and discomfort in his legs. Urine output remains poor although creatinine down slightly to 4.1 today. Serum CO2 remains low at 17, anion gap 12. Objective Vital Signs and I&Os Vital Signs Date Time Temp Pulse Resp B/P B/P Pulse O2 O2 Flow FiO2 Mean Ox Delivery Rate 12/04 08 Room Air 12/04 0749 92/60 12/04 0636 97.6 110 20 92/58 93 Room Air 12/04 0000 Room Air 12/03 2251 97.6 127 18 80/60 100 Room Air 12/03 2138 100 90/58 12/03 1508 100 90/58 / 1440 97.5 110 20 90/58 93 Room Air Intake & Output 12/04 1600 12/04 0400 12/03 1600 12/03 0400 12/02 1600 12/02 0400 Intake Total 900 1200 1800 3850 Output Total 50 90 80 4 Balance 850 1110 1720 3846 Intake, IV 800 1000 1800 3850 Intake, Oral 100 200 0 Output, Urine 50 90 80 4 Patient 155 lb 155 lb 155 lb 160 lb Weight Weight Bed scale Estimated Measurement Method Physical Exam: General: Chronically ill appearing, pale, white male, confused, in NAD Skin: No rash or jaundice, skin turgor poor HEENT: Conjunctivae pale, sclerae anicteric, mucous membranes dry Neck: Without masses or thyromegaly, no supraclavicular or cervical adenopathy Chest: Clear to P&A Heart: Irregular rhythm without S3 or rub Abdomen: Soft and nontender without palpable masses or organomegaly Extremities: Without cyanosis or edema Neuro: Disoriented to place and time, no focal findings, +asterixis, no myoclonus Results Pertinent Lab Results: Laboratory Tests 12/04 12/04 0607 0100 Chemistry Sodium (137 - 145 mmol/L) 133 L 134 L Potassium (3.5 - 5.1 mmol/L) 4.3 4.6 Chloride (98 - 107 mmol/L) 105 104 Carbon Dioxide (22 - 30 mmol/L) 17 L 17 L Anion Gap (5 - 16) 12 13 BUN (9 - 20 mg/dL) 70 H 73 H Creatinine (0.7 - 1.2 mg/dL) 4.1 H 4.6 H Estimated GFR (>60 ml/min) 14 L 12 L BUN/Creatinine Ratio (7 - 25 %) 17.1 15.9 Magnesium (1.6 - 2.3 mg/dL) 1.4 L Hematology CBC w Diff NO MAN DIFF REQ NO MAN DIFF REQ WBC (4.8 - 10.8 /CUMM) 7.3 8.0 RBC (4.70 - 6.10 /CUMM) 2.88 L 2.87 L Hgb (14.0 - 18.0 G/DL) 8.9 L 8.9 L Hct (42 - 52 %) 26.8 L 26.7 L MCV (80.0 - 94.0 FL) 93.2 93.0 MCH (27.0 - 31.0 PG) 31.0 31.1 H MCHC (33.0 - 37.0 G/DL) 33.3 33.4 RDW (11.5 - 14.5 %) 17.1 H 16.9 H Plt Count (130 - 400 /CUMM) 339 356 MPV (7.4 - 10.4 FL) 7.3 L 7.2 L Gran % (42.2 - 75.2 %) 86.8 H 86.0 H Lymphocytes % (20.5 - 51.1 %) 7.3 L 7.9 L Monocytes % (1.7 - 9.3 %) 5.7 5.9 Eosinophils % (0 - 5 %) 0.2 0.1 Basophils % (0.0 - 2.0 %) 0 0.1 Absolute Granulocytes (1.4 - 6.5 /CUMM) 6.4 6.9 H Absolute Lymphocytes (1.2 - 3.4 /CUMM) 0.5 L 0.6 L Absolute Monocytes (0.10 - 0.60 /CUMM) 0.4 0.5 Absolute Eosinophils (0.0 - 0.7 /CUMM) 0 0 Absolute Basophils (0.0 - 0.2 /CUMM) 0 0 12/03 08 1227 0621 Chemistry Sodium (137 - 145 mmol/L) 135 L Potassium (3.5 - 5.1 mmol/L) 4.7 Chloride (98 - 107 mmol/L) 105 Carbon Dioxide (22 - 30 mmol/L) 15 L Anion Gap (5 - 16) 15 BUN (9 - 20 mg/dL) 72 H Creatinine (0.7 - 1.2 mg/dL) 4.4 H Estimated GFR (>60 ml/min) 13 L BUN/Creatinine Ratio (7 - 25 %) 16.4 Magnesium (1.6 - 2.3 mg/dL) 1.6 Total PSA (0.00 - 4.00 ng/mL) 5.23 H Hematology CBC w Diff NO MAN DIFF REQ WBC (4.8 - 10.8 /CUMM) 9.3 RBC (4.70 - 6.10 /CUMM) 2.99 L Hgb (14.0 - 18.0 G/DL) 9.4 L Hct (42 - 52 %) 27.9 L MCV (80.0 - 94.0 FL) 93.5 MCH (27.0 - 31.0 PG) 31.6 H MCHC (33.0 - 37.0 G/DL) 33.8 RDW (11.5 - 14.5 %) 16.6 H Plt Count (130 - 400 /CUMM) 432 H MPV (7.4 - 10.4 FL) 7.2 L Gran % (42.2 - 75.2 %) 83.4 H Lymphocytes % (20.5 - 51.1 %) 10.1 L Monocytes % (1.7 - 9.3 %) 6.5 Eosinophils % (0 - 5 %) 0 Basophils % (0.0 - 2.0 %) 0 Absolute Granulocytes (1.4 - 6.5 /CUMM) 7.7 H Absolute Lymphocytes (1.2 - 3.4 /CUMM) 0.9 L Absolute Monocytes (0.10 - 0.60 /CUMM) 0.6 Absolute Eosinophils (0.0 - 0.7 /CUMM) 0 Absolute Basophils (0.0 - 0.2 /CUMM) 0 Urines Urine Color (YEL,AMB,STR) ORANG H Urine Clarity (CLEAR) CLDY H Urine pH (5.0 - 8.0) 6.0 Ur Specific [place] (1.001 - 1.035) >= 1.030 Urine Protein (NEG,<30 MG/DL) >=300 H Urine Ketones (NEG) NEG Urine Nitrite (NEG) NEG Urine Bilirubin (NEG) NEG@ICTO Urine Urobilinogen (0.1 - 1.0 EU/dl) 0.2 Ur Leukocyte Esterase (NEG) MOD H Ur Microscopic SEDIMENT EXAMINED Urine RBC (0 - 5 /HPF) 15-25 H Urine WBC (0 - 2 /HPF) PACKD H Ur Epithelial Cells (NONE,FEW) FEW Urine Bacteria (NEG/NONE) PACKD H Urine Hemoglobin (NEG) LARGE H Urine Glucose (N MG/DL) NEG 12/03 12/03 12/02 0600 0010 1820 Chemistry Lactic Acid (0.7 - 2.1 mmol/L) 2.7 H Carcinoembryonic Ag (() ng/mL) 21.3 H Hematology CBC w Diff MAN DIFF ORDERED WBC (4.8 - 10.8 /CUMM) 8.9 RBC (4.70 - 6.10 /CUMM) 2.94 L Hgb (14.0 - 18.0 G/DL) 9.2 L Hct (42 - 52 %) 27.3 L MCV (80.0 - 94.0 FL) 92.8 MCH (27.0 - 31.0 PG) 31.2 H MCHC (33.0 - 37.0 G/DL) 33.6 RDW (11.5 - 14.5 %) 16.3 H Plt Count (130 - 400 /CUMM) 434 H MPV (7.4 - 10.4 FL) 7.4 Gran % (42.2 - 75.2 %) 89.4 H Lymphocytes % (20.5 - 51.1 %) 6.7 L Monocytes % (1.7 - 9.3 %) 3.9 Eosinophils % (0 - 5 %) 0 Basophils % (0.0 - 2.0 %) 0 Absolute Granulocytes (1.4 - 6.5 /CUMM) 7.9 H Segmented Neutrophils (42.2 - 75.2 %) 93 H Absolute Lymphocytes (1.2 - 3.4 /CUMM) 0.6 L Lymphocytes (20.5 - 51.1 %) 4 L Monocytes (1.7 - 9.3 %) 3 Absolute Monocytes (0.10 - 0.60 /CUMM) 0.3 Absolute Eosinophils (0.0 - 0.7 /CUMM) 0 Absolute Basophils (0.0 - 0.2 /CUMM) 0 Platelet Estimate (ADEQUATE) INCREASED Polychromasia 1+ Poikilocytosis 2+ Ovalocytes 1+ Maci Cells 1+ Other Body Source Fld Total RBCs Counted (%) 100 12/02 12/02 12/02 12/02 12/02 1820 1531 1450 1431 1234 Chemistry Hemoglobin A1c (4.2 - 5.8 %) 5.4 Lactic Acid Cancelled Ammonia (9 - 30 umol/L) < 9 L TSH (0.270 - 4.200 uIU/mL) 3.570 Other Body Source Stool Occult Blood Cancelled Urines Urine Color Cancelled Urine Clarity Cancelled Urine pH Cancelled Ur Specific [place] Cancelled Urine Protein Cancelled Urine Ketones Cancelled Urine Nitrite Cancelled Urine Bilirubin Cancelled Urine Urobilinogen Cancelled Ur Leukocyte Esterase Cancelled Ur Microscopic Cancelled Urine Hemoglobin Cancelled Urine Glucose Cancelled 12/02 12/02 1234 1150 Chemistry Sodium (137 - 145 mmol/L) 133 L Potassium (3.5 - 5.1 mmol/L) 5.0 Chloride (98 - 107 mmol/L) 97 L Carbon Dioxide (22 - 30 mmol/L) 19 L Anion Gap (5 - 16) 16 BUN (9 - 20 mg/dL) 73 H Creatinine (0.7 - 1.2 mg/dL) 4.6 H Estimated GFR (>60 ml/min) 12 L BUN/Creatinine Ratio (7 - 25 %) 15.9 Glucose (65 - 99 mg/dL) 141 H Lactic Acid (0.7 - 2.1 mmol/L) 2.9 H Calcium (8.4 - 10.2 mg/dL) 8.5 Total Bilirubin (0.2 - 1.3 mg/dL) 1.0 AST (17 - 59 U/L) 29 ALT (21 - 72 U/L) 17 L Alkaline Phosphatase (< 127 U/L) 126 Creatine Kinase (55 - 170 U/L) 76 Troponin I (<0.11 ng/ml) 0.08 Total Protein (6.3 - 8.2 g/dL) 6.5 Albumin (3.5 - 5.0 g/dL) 3.2 L Globulin (1.9 - 4.2 gm/dL) 3.3 Albumin/Globulin Ratio (1.1 - 2.2 %) 1.0 L Prolactin (3.7 - 17.9 ng/mL) 46.9 H Hematology CBC w Diff MAN DIFF ORDERED WBC (4.8 - 10.8 /CUMM) 7.8 RBC (4.70 - 6.10 /CUMM) 2.78 L Hgb (14.0 - 18.0 G/DL) 8.9 L Hct (42 - 52 %) 26.1 L MCV (80.0 - 94.0 FL) 93.9 MCH (27.0 - 31.0 PG) 31.9 H MCHC (33.0 - 37.0 G/DL) 33.9 RDW (11.5 - 14.5 %) 15.7 H Plt Count (130 - 400 /CUMM) 479 H MPV (7.4 - 10.4 FL) 7.0 L Gran % (42.2 - 75.2 %) 92.5 H Lymphocytes % (20.5 - 51.1 %) 5.2 L Monocytes % (1.7 - 9.3 %) 2.1 Eosinophils % (0 - 5 %) 0 Basophils % (0.0 - 2.0 %) 0.2 Absolute Granulocytes (1.4 - 6.5 /CUMM) 7.2 H Absolute Lymphocytes (1.2 - 3.4 /CUMM) 0.4 L Absolute Monocytes (0.10 - 0.60 /CUMM) 0.2 Absolute Eosinophils (0.0 - 0.7 /CUMM) 0 Absolute Basophils (0.0 - 0.2 /CUMM) 0 Platelet Estimate (ADEQUATE) VERIFIED BY SMEAR Polychromasia 1+ Anisocytosis 1+ Toxicology Methadone Screen Cancelled Barbiturate Screen Cancelled Ur Phencyclidine Scrn Cancelled Amphetamines Screen Cancelled U Benzodiazepines Scrn Cancelled Urine Cocaine Screen Cancelled Urine Cannabis Screen Cancelled
[2017-12-04 14:56] VITALS: BP 110/72
--- NOTE | 2017-12-04 15:20 | Cons- Oncology ---
General Information and HPI Consulting Request Date of Consult: 12/04/17 Requested By: Erlin Wilson MD History of Present Illness: 77-year-old man extensive past medical history including prostate cancer and and resected colon cancer in 2010 now admitted with increasing weakness and shortness of breath. Workup thus far in the hospital suggested widespread malignancy. Allergies/Medications Allergies: Coded Allergies: cefadroxil (Intermediate, NAUSEA 12/02/17) magnesium (Intermediate, DIARRHEA 12/02/17) Home Med List: Atorvastatin Calcium 80 MG TABLET 1 TAB PO DAILY HEART HEALTH (Reported) Clopidogrel Bisulfate (Plavix) 75 MG TABLET 1 TAB PO DAILY HEART HEALTH ( Reported) Furosemide (Lasix) 80 MG TABLET 1 TAB PO DAILY WATER RETENTION (Reported) Metformin HCl (Glucophage) 1,000 MG TABLET 1 TAB PO BID DM (Reported) Nitroglycerin 0.4 MG TAB.SUBL 1 TAB SL DAILY PRN CHEST PAIN (Reported) 1st sign of attack; may repeat every 5 minutes until relief; if pain persists after 3 tablets in 15 minutes, prompt medical att Oxycodone HCl 10 MG TABLET 1 TAB PO BIDP PRN PAIN (Reported) Ranolazine (Ranexa) 1,000 MG TAB.ER.12H 1 TAB PO DAILY HEART HEALTH ( Reported) Current Medications: Current Medications Sig/Dalia Start time Last Medication Dose Route Stop Time Status Admin Dextrose/Sodium 1,000 ML Q10H 12/04 1500 AC Chloride IV Dextrose/Sodium 1,000 ML Q10H 12/04 0900 DC Chloride IV Docusate Sodium 100 MG DAILY 12/05 0900 AC PO Insulin Aspart 0 TIDAC 12/03 1700 AC 12/04 SC 0833 Levetiracetam 500 MG Q12 12/02 2100 AC 12/04 N/A 1 UNIT IV 0750 Lorazepam 1 MG Q6 PRN 12/04 1430 AC 12/04 PO 1429 Lorazepam 0 .STK-MED ONE 12/04 1427 DC PO Metoprolol Tartrate 6.25 MG BID 12/03 1312 AC 12/03 PO 2138 Ondansetron HCl 4 MG Q6P PRN 12/02 1730 AC IV Oxycodone HCl 10 MG Q6P PRN 12/03 1230 AC 12/04 PO 0750 Pantoprazole Sodium 40 MG BID 12/02 2100 AC 12/04 IV 0750 Patient Medication 1 ED ONE ONE 12/04 1415 DC Teaching ED 12/04 1416 Senna/Docusate Sodium 1 TAB BID 12/04 2100 AC PO Sodium Bicarbonate 75 MEQ Q13H 12/04 1245 AC 12/04 Dextrose/Sodium 1,000 ML IV 1233 Chloride Sodium Bicarbonate 75 MEQ Q10H 12/04 1215 DC 12/04 Dextrose/Sodium 1,000 ML IV 1221 Chloride Sodium Bicarbonate 75 MEQ Q13H 12/04 1000 DC Sodium Chloride 1,000 ML IV Sodium Bicarbonate 150 MEQ Q8H 12/03 2045 CAN Dextrose/Sodium 1,000 ML IV Chloride Sodium Bicarbonate 75 MEQ Q10H 12/03 1915 DC 12/04 Sodium Chloride 1,000 ML IV 0750 Sodium Bicarbonate 75 MEQ Q10H 12/03 1045 DC 12/03 Dextrose/Sodium 1,000 ML IV 12/03 2044 1117 Chloride Review of Systems Review of Systems: Patient complains of occasional headaches. He complains of shortness of breath not associated with productive sputum or hemoptysis . Patient denied chest pain patient denied chest pain. Patient denies nausea vomiting abdominal pain but has questionable dysphagia. Patient denies dysuria or hematuria . Patient denies new bone pain or focal neurologic deficit Past History Travel History Traveled to [place] past 21 day No Medical History Blood Transfusion Hx: Yes Neurological: NONE EENT: NONE Cardiovascular: CAD, hypertension, hyperlipidemia Respiratory: NONE Gastrointestinal: NONE Hepatic: NONE Renal: NONE Musculoskeletal: chronic back pain Psychiatric: NONE Endocrine: NONE Blood Disorders: NONE Cancer(s): colon/rectal cancer, prostate cancer, SKIN CANCER [facility] PHYSICIAN/Reproductive: NONE Surgical History Surgical History: colon resection, prostate seed placement Psychosocial History Where Do You Live? Home Who Do You Live With? child Services at Home: None Primary Language: Maori Smoking Status: Former Smoker Living Will? unknown Power of Registered Pharmacy Technician/HCP? unknown Exam & Diagnostic Data Vital Signs and I&O Vital Signs Date Time Temp Pulse Resp B/P B/P Pulse O2 O2 Flow FiO2 Mean Ox Delivery Rate 12/04 1456 97.4 132 20 110/72 98 Room Air 12/04 0800 Room Air 12/04 0749 92/60 12/04 0636 97.6 110 20 92/58 93 Room Air 12/04 0000 Room Air 12/03 2251 97.6 127 18 80/60 100 Room Air 12/03 2138 100 90/58 Intake & Output 12/04 1600 12/04 0800 12/04 0000 Intake Total 900 1200 Output Total 50 90 Balance 850 1110 Intake, IV 800 1000 Intake, Oral 100 200 Output, Urine 50 90 Patient 155 lb Weight Gen.: in NAD ENT: Sclera anicteric Chest: Markedly decreased breath sounds at the bases s Cor: Irregularly irregular regular Abdomen: Soft, bowel sounds present, no tenderness, no rebound Extremities: Without clubbing, cyanosis, or asymmetric edema Neurology: Alert and oriented 3, no gross deficit Skin: No rashes Last 48 Hours of Lab Results: asymmetric Laboratory Tests 12/04 12/04 0607 0100 Chemistry Sodium (137 - 145 mmol/L) 133 L 134 L Potassium (3.5 - 5.1 mmol/L) 4.3 4.6 Chloride (98 - 107 mmol/L) 105 104 Carbon Dioxide (22 - 30 mmol/L) 17 L 17 L Anion Gap (5 - 16) 12 13 BUN (9 - 20 mg/dL) 70 H 73 H Creatinine (0.7 - 1.2 mg/dL) 4.1 H 4.6 H Estimated GFR (>60 ml/min) 14 L 12 L BUN/Creatinine Ratio (7 - 25 %) 17.1 15.9 Magnesium (1.6 - 2.3 mg/dL) 1.4 L Hematology CBC w Diff NO MAN DIFF REQ NO MAN DIFF REQ WBC (4.8 - 10.8 /CUMM) 7.3 8.0 RBC (4.70 - 6.10 /CUMM) 2.88 L 2.87 L Hgb (14.0 - 18.0 G/DL) 8.9 L 8.9 L Hct (42 - 52 %) 26.8 L 26.7 L MCV (80.0 - 94.0 FL) 93.2 93.0 MCH (27.0 - 31.0 PG) 31.0 31.1 H MCHC (33.0 - 37.0 G/DL) 33.3 33.4 RDW (11.5 - 14.5 %) 17.1 H 16.9 H Plt Count (130 - 400 /CUMM) 339 356 MPV (7.4 - 10.4 FL) 7.3 L 7.2 L Gran % (42.2 - 75.2 %) 86.8 H 86.0 H Lymphocytes % (20.5 - 51.1 %) 7.3 L 7.9 L Monocytes % (1.7 - 9.3 %) 5.7 5.9 Eosinophils % (0 - 5 %) 0.2 0.1 Basophils % (0.0 - 2.0 %) 0 0.1 Absolute Granulocytes (1.4 - 6.5 /CUMM) 6.4 6.9 H Absolute Lymphocytes (1.2 - 3.4 /CUMM) 0.5 L 0.6 L Absolute Monocytes (0.10 - 0.60 /CUMM) 0.4 0.5 Absolute Eosinophils (0.0 - 0.7 /CUMM) 0 0 Absolute Basophils (0.0 - 0.2 /CUMM) 0 0 12/03 12/03 1227 0621 Chemistry Sodium (137 - 145 mmol/L) 135 L Potassium (3.5 - 5.1 mmol/L) 4.7 Chloride (98 - 107 mmol/L) 105 Carbon Dioxide (22 - 30 mmol/L) 15 L Anion Gap (5 - 16) 15 BUN (9 - 20 mg/dL) 72 H Creatinine (0.7 - 1.2 mg/dL) 4.4 H Estimated GFR (>60 ml/min) 13 L BUN/Creatinine Ratio (7 - 25 %) 16.4 Magnesium (1.6 - 2.3 mg/dL) 1.6 Total PSA (0.00 - 4.00 ng/mL) 5.23 H Hematology CBC w Diff NO MAN DIFF REQ WBC (4.8 - 10.8 /CUMM) 9.3 RBC (4.70 - 6.10 /CUMM) 2.99 L Hgb (14.0 - 18.0 G/DL) 9.4 L Hct (42 - 52 %) 27.9 L MCV (80.0 - 94.0 FL) 93.5 MCH (27.0 - 31.0 PG) 31.6 H MCHC (33.0 - 37.0 G/DL) 33.8 RDW (11.5 - 14.5 %) 16.6 H Plt Count (130 - 400 /CUMM) 432 H MPV (7.4 - 10.4 FL) 7.2 L Gran % (42.2 - 75.2 %) 83.4 H Lymphocytes % (20.5 - 51.1 %) 10.1 L Monocytes % (1.7 - 9.3 %) 6.5 Eosinophils % (0 - 5 %) 0 Basophils % (0.0 - 2.0 %) 0 Absolute Granulocytes (1.4 - 6.5 /CUMM) 7.7 H Absolute Lymphocytes (1.2 - 3.4 /CUMM) 0.9 L Absolute Monocytes (0.10 - 0.60 /CUMM) 0.6 Absolute Eosinophils (0.0 - 0.7 /CUMM) 0 Absolute Basophils (0.0 - 0.2 /CUMM) 0 Urines Urine Color (YEL,AMB,STR) ORANG H Urine Clarity (CLEAR) CLDY H Urine pH (5.0 - 8.0) 6.0 Ur Specific [place] (1.001 - 1.035) >= 1.030 Urine Protein (NEG,<30 MG/DL) >=300 H Urine Ketones (NEG) NEG Urine Nitrite (NEG) NEG Urine Bilirubin (NEG) NEG@ICTO Urine Urobilinogen (0.1 - 1.0 EU/dl) 0.2 Ur Leukocyte Esterase (NEG) MOD H Ur Microscopic SEDIMENT EXAMINED Urine RBC (0 - 5 /HPF) 15-25 H Urine WBC (0 - 2 /HPF) PACKD H Ur Epithelial Cells (NONE,FEW) FEW Urine Bacteria (NEG/NONE) PACKD H Urine Hemoglobin (NEG) LARGE H Urine Glucose (N MG/DL) NEG 12/03 12/03 12/02 0600 0010 1820 Chemistry Lactic Acid (0.7 - 2.1 mmol/L) 2.7 H Carcinoembryonic Ag (() ng/mL) 21.3 H Hematology CBC w Diff MAN DIFF ORDERED WBC (4.8 - 10.8 /CUMM) 8.9 RBC (4.70 - 6.10 /CUMM) 2.94 L Hgb (14.0 - 18.0 G/DL) 9.2 L Hct (42 - 52 %) 27.3 L MCV (80.0 - 94.0 FL) 92.8 MCH (27.0 - 31.0 PG) 31.2 H MCHC (33.0 - 37.0 G/DL) 33.6 RDW (11.5 - 14.5 %) 16.3 H Plt Count (130 - 400 /CUMM) 434 H MPV (7.4 - 10.4 FL) 7.4 Gran % (42.2 - 75.2 %) 89.4 H Lymphocytes % (20.5 - 51.1 %) 6.7 L Monocytes % (1.7 - 9.3 %) 3.9 Eosinophils % (0 - 5 %) 0 Basophils % (0.0 - 2.0 %) 0 Absolute Granulocytes (1.4 - 6.5 /CUMM) 7.9 H Segmented Neutrophils (42.2 - 75.2 %) 93 H Absolute Lymphocytes (1.2 - 3.4 /CUMM) 0.6 L Lymphocytes (20.5 - 51.1 %) 4 L Monocytes (1.7 - 9.3 %) 3 Absolute Monocytes (0.10 - 0.60 /CUMM) 0.3 Absolute Eosinophils (0.0 - 0.7 /CUMM) 0 Absolute Basophils (0.0 - 0.2 /CUMM) 0 Platelet Estimate (ADEQUATE) INCREASED Polychromasia 1+ Poikilocytosis 2+ Ovalocytes 1+ [place] Cells 1+ Other Body Source Fld Total RBCs Counted (%) 100 08 12/02 1820 1531 Chemistry Hemoglobin A1c (4.2 - 5.8 %) 5.4 TSH (0.270 - 4.200 uIU/mL) 3.570 Other Body Source Stool Occult Blood Cancelled PSA 5.2 CEA 21.3 Imaging/Other Studies: CT-chest abdomen pelvis no IV contrast -multiple pulmonary nodules multiple pulmonary nodules, no dominant mass, no dominant mass bilateral pleural effusions, bilateral adrenal masses, retroperitoneal adenopathy adenopathy encasing the aorta encasing the aorta and obstructing the left ureter. MRI-head-no metastatic disease CT February 2017 demonstrated multiple enlarged para-aortic lymph nodes Assessment/Plan Assessment: 1. Presumed widespread malignancy-given the stable PSA and elevated CEA, prostate cancer stage cancer would not likely be the culprit . Given the diagnosis of colon cancer in 2010, giventime frame would not support likely diagnosis of metastatic colon cancer. The distribution of disease would favor lung cancer. I had had long discussion with the patient and he wishes to pursue further diagnosis and possible therapy in the setting of very poor performance status. Recommend- Tissue diagnosis would seem reasonable if therefore necessary. Diagnostic/ diagnostictherapeutic thoracentesis thoracentesis would seem reasonable. 2. Renal insufficiency renal insufficiency-in part likely due to obstructive uropathy. 3. Atrial fibrillation-records from [facility] suggest this is not an acute event. Recommendations: .. Consult Acknowledgment - Thank you for your consult request.
--- NOTE | 2017-12-04 18:26 | Event Note ---
Event Note Event Note: I had a meeting with the patient and the family including Niesha and Efrain. I updated about the clinical situation including acute kidney injury, disseminated malignancy, atrial fibrillation with rapid ventricular rate, and risk of stroke due to immobilization, atrial fibrillation, and possible disseminated malignancy. I discussed about the risk and benefit of anticoagulation including acute bleeding leading to shock and benefit in terms of preventing further stroke. I told them that if the heparin drip will be started, it will be closely monitored by doing PTT every 6 hourly. We also discussed that he needs biopsy for further evaluation of etiology of the cancer. Both Niesha and Yovany, were not interested in going further in terms of interventions but they still want to think over the weekend. We decided that on Thursday we will keep him n.p.o. and if they, consider then we can do biopsy.
[2017-12-04 21:39] VITALS: BP 104/64
[2017-12-05 04:56] LABS: ABSOLUTE BASOPHIL COUNT 0 /CUMM (0.0-0.2); ABSOLUTE EOSINOPHIL COUNT 0 /CUMM (0.0-0.7); ABSOLUTE LYMPH COUNT 0.5 /CUMM (1.2-3.4); ABSOLUTE MONOCYTE COUNT 0.7 /CUMM (0.10-0.60); BASOPHIL % 0.2 % (0.0-2.0); EOSINOPHIL % 0.1 % (0-5); GRANULOCYTE % 91.3 % (42.2-75.2); MEAN CORPUSCULAR HGB 31.4 PG (27.0-31.0); MEAN CORPUSCULAR HGB CONC 33.6 G/DL (33.0-37.0); MEAN CORPUSCULAR VOLUME 93.3 FL (80.0-94.0); MEAN PLATELET VOLUME 7.4 FL (7.4-10.4); PLATELET COUNT 325 /CUMM (130-400); RBC DISTRIBUTION WIDTH 16.1 % (11.5-14.5)
[2017-12-05 05:04] LABS: PTT 108 SEC (25-37)
[2017-12-05 05:06] LABS: WHITE BLOOD CELL COUNT 14.2 /CUMM (4.8-10.8)
[2017-12-05 06:57] VITALS: BP 100/58
--- NOTE | 2017-12-05 11:23 | PN- Housestaff ---
Luther Dozier 12/05/17 1123: Subjective Follow-up For: metastatic disease, colon, prostate cancer, obstructive uropathy, Acute on chronic kidney disease. seizures.atrial fib Tele-Events Since Last Visit: ATrial fibrillation, HR in 120s Subjective: He was examined lying in the bed,. He said that his urine output has been about 190 mL last night and he feels better. but c/o leg cramps. ,no redness. Patient specifically said that oxycodone is making him drowsy and paranoid and wanted it to be changed to tyelenol. Review of Systems Constitutional: Reports: see HPI. Denies: chills, diaphoresis, fever, malaise, weakness, unexplained weight loss. Cardiovascular: Denies: chest pain, palpitations. Respiratory: Denies: cough, orthopnea, short of breath, stridor. Gastrointestinal: Denies: abdominal pain, nausea, vomiting. Genitourinary: Denies: frequency, urgency. Objective Last 24 Hrs of Vital Signs/I&O Vital Signs Date Time Temp Pulse Resp B/P B/P Pulse O2 O2 Flow FiO2 Mean Ox Delivery Rate 12/05 0657 97.7 100 18 100/58 99 Nasal Cannula 12/048 93 Room Air 12/049 97.8 135 20 104/64 93 Nasal Cannula 12/04 2058 161 90/56 12/04 1456 97.4 132 20 110/72 98 Room Air Intake & Output 12/05 1600 12/05 0800 12/05 0000 Intake Total 1500 100 Output Total 50 100 Balance 1450 0 Intake, IV 1400 Intake, Oral 100 100 Output, Urine 50 100 Patient 156 lb Weight Weight Bed scale Measurement Method Physical Exam General Appearance: Alert, Oriented X3, Cooperative, No Acute Distress Cardiovascular: Normal S1, Normal S2 Lungs: decreased bresth sounds Abdomen: Normal Bowel Sounds, Soft, No Tenderness, No Hepatospenomegaly, No Masses Neurological: could not be performed Current Medications: Current Medications Sig/Dalia Start time Last Medication Dose Route Stop Time Status Admin Dextrose/Sodium 1,000 ML Q10H 12/04 1500 AC 12/05 Chloride IV 0517 Docusate Sodium 100 MG DAILY 12/05 0900 AC 12/05 PO 0915 Heparin Sodium 25,000 UNIT Q24H 12/04 1830 AC 12/04 (Porcine) IV 2050 Sodium Chloride 500 ML Insulin Aspart 0 TIDAC 12/03 1700 AC 12/04 SC 1730 Levetiracetam 500 MG Q12 12/02 2100 AC 12/05 N/A 1 UNIT IV 0909 Lorazepam 1 MG Q6 PRN 12/04 1430 AC 12/04 PO 1834 Lorazepam 0 .STK-MED ONE 12/04 1427 DC PO Magnesium Oxide 400 MG 0730 12/05 0730 DC 12/05 PO 12/05 0731 0915 Metoprolol Tartrate 6.25 MG BID 12/03 1312 AC 12/04 PO 2059 Ondansetron HCl 4 MG Q6P PRN 12/02 1730 AC IV Oxycodone HCl 10 MG Q6P PRN 12/03 1230 AC 12/04 PO 1931 Pantoprazole Sodium 40 MG BID 12/02 2099 AC 12/05 IV 0915 Patient Medication 1 ED ONE ONE 12/04 1415 DC Teaching ED 12/04 1416 Senna/Docusate Sodium 1 TAB BID 12/04 2099 AC 12/05 PO 0915 Sodium Bicarbonate 75 MEQ Q13H 12/04 2100 AC 12/04 Dextrose/Sodium 1,000 ML IV 2319 Chloride Sodium Bicarbonate 75 MEQ Q13H 12/04 1245 DC 12/04 Dextrose/Sodium 1,000 ML IV 1233 Chloride Last 24 Hrs of Lab/Donell Results Last 24 Hrs of Labs/Mics: Laboratory Tests 12/05/17 0335: Anion Gap 12, Estimated GFR 13 L, BUN/Creatinine Ratio 16.4, Phosphorus 4.7 H, Magnesium 1.5 L, APTT 108 *H, CBC w Diff MAN DIFF ORDERED, RBC 2.90 L, MCV 93.3, MCH 31.4 H, MCHC 33.6, RDW 16.1 H, MPV 7.4, Gran % 91.3 H, Lymphocytes % 3.6 L, Monocytes % 4.8, Eosinophils % 0.1, Basophils % 0.2, Absolute Granulocytes 13.0 H, Absolute Lymphocytes 0.5 L, Absolute Monocytes 0.7 H, Absolute Eosinophils 0, Absolute Basophils 0, Platelet Estimate ADEQUATE, Polychromasia 1+ 12/04/17 1800: Phosphorus Cancelled, CBC w Diff Cancelled, WBC Cancelled, RBC Cancelled, Hgb Cancelled, Hct Cancelled, MCV Cancelled, MCH Cancelled, MCHC Cancelled, RDW Cancelled, Plt Count Cancelled, MPV Cancelled Assessment/Plan Assessment: 77-year-old male with PMH HTN, DM 2, HLD, CAD, post CABG 2002, prostate cancer S/P chemo and radiotherapy , colon cancer in 2010 with colonoscopy in 08/2017, with multiple surgeries came with history of GTCS. Workup revealed uremia with obstructive uropathy, AASHISH. old records also show para-aortic lymphadenopathy on a CT from November 2016, CXR from 08/2017 shows no evidence of nodules or metastases. 1) ACute on chronic kidney injury Creatinine is 4.4 , GFR- 13 L- stage G5 Decreased total urine output. 190 ml yesterday Nephrology - Continue IV fluids, with sodium bicarbonate, and Dr. Gilman said that patient might require left percutaneous nephrostomy if renal function does not improve until next week. Mg - 1.5, Po4- 4.7 give Magnesium oxide PO 2) ACute Left sided Hydroureteronephrosis- -Urology consulted for obstructive nephropathy- stated that patient has minimal left hydronephrosis and normal right kidney, and unlikely is causing acute renal failure. Looks like picture of dehydration causing elevation in creatinine. Recommended hydration and close monitoring -considering stenting of ureter only if there is no significant improvement monitor UO 3) New onset seizure- - CT, MRI negative -EEG- generalized slowing of the backgrounds with no focal or epileptiform features - Patient is currently on Keppra, more likely due to uremia - Did not have any further episodes of Seizures 4)Atrial fibrillation -HR overnight 120 Patient is in RVR, [id number] atleast 6, Starte metoprolol 5mg iv for controlling HR No further increase in metoprolol dosing due to risk of hypotension. Observe heart rate, tolerate some mild permissive tachycardia for normal ANticoagulation -started on IV heparin, observe for bleeding Recommend echocardiogram Monitor Vitals 5) Upper GI bleed-- coffee ground emesis- - No further episodes of Emesis - Heparin may be restarted over the weekend, watch fopr hematemesis 6)ANemia- normocytic- iron deficiency - due to GI bleed, earlier. No further GI bleed - receievd 1 prbc during the hospital course - HB- 9.1,stable , will monitor CBC 12 th hourly - 7)Metastatic disease with unknown primary malignancy-\ Thursday- Call IR for Biopsy. patient has not been on plavix and inform them that -oxycodone 10 mg not dicontinued, tyelenol prn ordered as per patients request, and patient does not want to contiue oxycodone asit makes him paranoid. - Palliative care consulted - H/O Prostate cancer and colon cancer, with retroperitoneal mass and multiple mets in the lungs -Manage pain and other symptoms as per DR Ayala -As needed Ativan as per Dr. Wilson in case the patient becomes agitated Problem List: 1. Metastasis 2. AASHISH (acute kidney injury) 3. Atrial fibrillation Pain Ratin Pain Location: leg- left Pain Goal: Remain pain free Pain Plan: tyeleol, oxycodone Tomorrow's Labs & Rationales: cbc, bmp, mg, ppo4 Erlin Wilson MD 12/05/17 7276: Attending MD Review Statement Attending Statement Attending MD Statement: examined this patient, discuss w/resident/PA/AIRFIELD MANAGER, agreed w/resident/PA/AIRFIELD MANAGER, reviewed EMR data (avail) Attending Assessment/Plan: 77M PMH T2DM, HTN, HLD, CAD s/p MT and CABG 2002, history of prostate cancer s/p chemotherapy and radioactive seeding, history of colon cancer s/p sigmoidectomy 2010, last colonoscopy 05/2017 was normal, history of multiple back surgeries, currently mostly wheelchair bound due to back pain and deconditioning, presented initially with weakness, lethargy, visual hallucinations, and witnessed tonic- clonic seizure at home. Workup revealed uremia, obstructive uropathy, and AASHISH, which may be causing his encephalopathy and seizure. He also has extensive retroperitoneal metastatic disease and lung metastases with unknown primary malignancy. CT and MRI of the head were negative. Patient was found to be in atrial fibrillation but this is not new and is present on old records. Old records also show para-aortic lymphadenopathy on a CT from November 2016, CXR from 08/2017 shows no evidence of nodules or metastases. Discussed potential options with family. Family is still leaning towards comfort measures. Will schedule lung biopsy, but family wants to think about it. The patient has no complaints and pain is controlled, breathing quietly. 1. Uremic encephalopathy 2. 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 Metastatic disease with unknown primary malignancy 4. Lung metastases with bilateral malignant effusions 5. AASHISH secondary to obstructive uropathy and dehydration 6. Chronic atrial fibrillation 7. Deconditioning 8. Moderate protein calorie malnutrition Plan - Continue telemetry - Follow nephrology, urology, palliative care, and cardiology recommendations - Monitor urine output - Continue heparin drip, risks and benefits discussed, see resident note - Continue Keppra - Oxycodone 10mg q6h PRN pain, montior for sedation - Start Senna and Colace to prevent opioid induced constipation - Regular diet - Continue home medications - DVT PPx with ALPS
[2017-12-05 14:03] LABS: PTT 95 SEC (25-37)
[2017-12-05 14:56] VITALS: BP 98/76
--- NOTE | 2017-12-05 19:53 | PN- Cardiology ---
Subjective Subjective: Patient resting comfortably. BP remain arounf 100 syst, and Afib 110-130 bpm. No acute overnight events. No specific complaints. Urine output remains low. Urology does not believe the obstruction is severe enough to cause his AASHISH, which is more likely secondary to low input. CT/MRI of the brain did not reveal any lesions. Objective Vital Signs and I&Os Vital Signs Date Time Temp Pulse Resp B/P B/P Pulse O2 O2 Flow FiO2 Mean Ox Delivery Rate 12/05 1456 97.6 123 20 98/76 99 Nasal Cannula 12/05 0900 100 100/58 12/05 0657 97.7 100 18 100/58 99 Nasal Cannula 12/04 2218 93 Room Air 12/04 2139 97.8 135 20 104/64 93 Nasal Cannula 12/04 2059 161 90/56 Intake & Output 12/05 1600 12/05 0800 12/05 0000 12/04 1600 12/04 0800 12/04 0000 Intake Total 1500 100 281 526 5938 Output Total 30 50 100 40 50 90 Balance -30 1450 0 508 511 7042 Intake, IV 1400 121 521 3038 Intake, Oral 100 100 240 100 200 Output, Urine 30 50 100 40 50 90 Patient 156 lb 155 lb Weight Weight Bed scale Measurement Method Physical Exam: General: no apparent distress. Alert. Eyes: No obvious scleral icterus. HEENT: No jugular venous distention or abnormal jugular venous pulsations. Cardiovascular: Normal intensity S1/S2. Irregular Respiratory: Decreased air entry at the bases Abdomen: no guarding or rebound tenderness. Musculoskeletal: No clubbing or cyanosis noted Skin: warm Current Medications: Current Medications Sig/Dalia Start time Last Medication Dose Route Stop Time Status Admin Acetaminophen 0 .STK-MED ONE 12/05 1801 DC PO Acetaminophen 650 MG ONCE PRN 12/05 1800 AC PO Dextrose/Sodium 1,000 ML Q10H 12/04 1500 AC 12/05 Chloride IV 1701 Docusate Sodium 100 MG DAILY 12/05 0900 AC 12/05 PO 0915 Heparin Sodium 25,000 UNIT Q24H 12/04 1830 AC 12/04 (Porcine) IV 205 Sodium Chloride 500 ML Insulin Aspart 0 TIDAC 12/03 1700 AC 12/05 SC 1905 Levetiracetam 500 MG Q12 12/02 2100 AC 12/05 N/A 1 UNIT IV 0909 Lorazepam 1 MG Q6 PRN 12/04 1430 AC 12/04 PO 1834 Magnesium Chloride 64 MG BID 12/05 2100 AC PO Magnesium Oxide 400 MG 0730 12/05 0730 DC 12/05 PO 12/05 0731 0915 Metoprolol Tartrate 6.25 MG BID 12/03 1312 AC 12/05 PO 0900 Ondansetron HCl 4 MG Q6P PRN 12/02 1730 AC IV Oxycodone HCl 10 MG Q6P PRN 12/03 1230 AC 12/04 PO 1931 Pantoprazole Sodium 40 MG BID 12/02 2100 AC 12/05 IV 0915 Senna/Docusate Sodium 1 TAB BID 12/04 2100 AC 12/05 PO 0915 Sodium Bicarbonate 75 MEQ Q13H 12/04 2099 AC 12/05 Dextrose/Sodium 1,000 ML IV 1457 Chloride Sodium Bicarbonate 75 MEQ Q13H 12/04 1245 DC 12/04 Dextrose/Sodium 1,000 ML IV 1233 Chloride Results Last 48 Hrs of Labs/Mics: Laboratory Tests 12/05/17 1230: APTT 95 H 12/05/17 0335: Anion Gap 12, Estimated GFR 13 L, BUN/Creatinine Ratio 16.4, Phosphorus 4.7 H, Magnesium 1.5 L, APTT 108 *H, CBC w Diff MAN DIFF ORDERED, RBC 2.90 L, MCV 93.3, MCH 31.4 H, MCHC 33.6, RDW 16.1 H, MPV 7.4, Gran % 91.3 H, Lymphocytes % 3.6 L, Monocytes % 4.8, Eosinophils % 0.1, Basophils % 0.2, Absolute Granulocytes 13.0 H, Absolute Lymphocytes 0.5 L, Absolute Monocytes 0.7 H, Absolute Eosinophils 0, Absolute Basophils 0, Platelet Estimate ADEQUATE, Polychromasia 1+ 12/04/17 1800: Phosphorus Cancelled, CBC w Diff Cancelled, WBC Cancelled, RBC Cancelled, Hgb Cancelled, Hct Cancelled, MCV Cancelled, MCH Cancelled, MCHC Cancelled, RDW Cancelled, Plt Count Cancelled, MPV Cancelled 12/04/17 0607: Anion Gap 12, Estimated GFR 14 L, BUN/Creatinine Ratio 17.1, Magnesium 1.4 L, CBC w Diff NO MAN DIFF REQ, RBC 2.88 L, MCV 93.2, MCH 31.0, MCHC 33.3, RDW 17.1 H, MPV 7.3 L, Gran % 86.8 H, Lymphocytes % 7.3 L, Monocytes % 5.7, Eosinophils % 0.2, Basophils % 0, Absolute Granulocytes 6.4, Absolute Lymphocytes 0.5 L, Absolute Monocytes 0.4, Absolute Eosinophils 0, Absolute Basophils 0 12/04/17 0100: Anion Gap 13, Estimated GFR 12 L, BUN/Creatinine Ratio 15.9, CBC w Diff NO MAN DIFF REQ, RBC 2.87 L, MCV 93.0, MCH 31.1 H, MCHC 33.4, RDW 16.9 H, MPV 7.2 L , Gran % 86.0 H, Lymphocytes % 7.9 L, Monocytes % 5.9, Eosinophils % 0.1, Basophils % 0.1, Absolute Granulocytes 6.9 H, Absolute Lymphocytes 0.6 L, Absolute Monocytes 0.5, Absolute Eosinophils 0, Absolute Basophils 0 Assessment/Plan Assessment/Plan 1. coronary artery disease status post CABG (last cath May 2014 showed patent MORTON to LAD, patent SVG to OM, [employer]OR of SVG to LPDA) 2. ischemic cardiomyopathy/HFrEF (last echo 06/30/2017 LVEF 45-50%) 3. PAD status post femoral stenting 4. hypertension 5. hyperlipidemia 6. diabetes 7. spinal stenosis 8. arthritis 9. prostate cancer s/p chemotherapy and sead implants, as per CT chest/abdomen/ pelvis current concern for metastatic disease 10. Possible seizure 11. Newly diagnosed atrial fibrillation/flutter, not currently on anti- coagulation due to coffee-ground emesis while in the emergency room 12. Acute renal failure Tolerating some permissive tachycardia, but given his heart rate is > 120 bpm in a more sustained fashion, i would begin metorpolol 12.5 mg PO bid today, and titrate up to 25 bid if tolerated. Continue telemetry? Yes
[2017-12-05 22:37] VITALS: BP 96/62
--- NOTE | 2017-12-05 23:06 | ECHOCARDIOGRAM REPORT ---
MARTIN MALDONADO Age: 77 : 1940 Gender: M Exam Date: 12/05/2017 09:52 Exam Location: [address] Ht (in): 71 Wt (lb): 155 BSA: 1.87 BP: 100 / 58 Ordering Physician: Luther Dozier MD Referring Physician: Luther Dozier MD Technologist: Karla Whaley [facility] Room Number: [id number] Indications: Rhythm: Atrial fibrillation Technical Quality: good FINDINGS Left Ventricle Severe global left ventricular hypokinesis. The ejection fraction is visually estimated at 20-25 %. High left ventricular filling pressure. Right Ventricle The right ventricle is mildly enlarged with reduced right ventricular global systolic function. Right Atrium The right atrium is normal in size. Left Atrium The left atrium is normal is midly enlarged. The interatrial septum is intact. Mitral Valve There is calcification of the mitral annulus There is mild mitral regurgitation. Aortic Valve Sclerosis of the aortic valve leaflets without significant transvalvular gradient. There is no aortic regurgitation. Tricuspid Valve The tricuspid valve is normal in structure and function. There is mild tricuspid regurgitation. RVSP is estimated at 30-35 mmHg. Pulmonic Valve Structurally normal pulmonic valve. There is tarce pulmonic regurgitation. Pericardium Normal pericardium without effusion. Great Vessels Ascending aorta is not well visualized. The aortic arch and great vessels are well seen and are normal. CONCLUSIONS Severe global left ventricular hypokinesis. The ejection fraction is visually estimated at 20-25 %. High left ventricular filling pressure. The right ventricle is mildly enlarged with reduced right ventricular global systolic function. The left atrium is normal is midly enlarged. There is calcification of the mitral annulus There is mild mitral regurgitation. Sclerosis of the aortic valve leaflets without significant transvalvular gradient. There is mild tricuspid regurgitation. RVSP is estimated at 30-35 mmHg. There is tarce pulmonic regurgitation. Normal pericardium without effusion. Ascending aorta is not well visualized. Bambi Silverman M.D. (Electronically Signed) Final Date: 05 December 2017 23:03 MEASUREMENTS (Male / Female) Normal Values 2D ECHO LV Diastolic Diameter PLAX 5.5 cm 4.2 - 5.9 / 3.9 - 5.3 cm LV Systolic Diameter PLAX 5.3 cm 2.1 - 4.0 cm LV Fractional Shortening PLAX 3.6 % 25 - 46 % LV Ejection Fraction 2D Teich 8.2 % IVS Diastolic Thickness 1.3 cm LVPW Diastolic Thickness 1.1 cm LV Relative Wall Thickness 0.4 LVOT Diameter 2.0 cm Aortic Root Diameter 3.2 cm LA Systolic Diameter LX 4.5 cm 3.0 - 4.0 / 2.7 - 3.8 cm LA Volume 85.0 cm 18 - 58 / 22 - 52 cm DOPPLER AV Peak Velocity 129.0 cm/s AV Peak Gradient 6.7 mmHg LVOT Peak Velocity 78.5 cm/s LVOT Peak Gradient 2.5 mmHg AV Area Cont Eq pk 1.9 cm Mitral E Point Velocity 80.5 cm/s Mitral A Point Velocity 42.0 cm/s Mitral E to A Ratio 1.9 MV Deceleration Time 137.0 ms TR Peak Velocity 280.0 cm/s TR Peak Gradient 31.4 mmHg PV Peak Velocity 90.9 cm/s PV Peak Gradient 3.3 mmHg LV E' Lateral Velocity 2.8 cm/s Mitral E to LV E' Lateral Ratio 28.4 LV E' Septal Velocity 3.6 cm/s Mitral E to LV E' Septal Ratio 22.3
[2017-12-06 01:13] LABS: PTT 59 SEC (25-37)
[2017-12-06 06:57] VITALS: BP 104/72
[2017-12-06 08:03] LABS: ABSOLUTE BASOPHIL COUNT 0 /CUMM (0.0-0.2); ABSOLUTE EOSINOPHIL COUNT 0.2 /CUMM (0.0-0.7); ABSOLUTE GRANULOCYTE CT 12.8 /CUMM (1.4-6.5); ABSOLUTE LYMPH COUNT 0.5 /CUMM (1.2-3.4); ABSOLUTE MONOCYTE COUNT 0.6 /CUMM (0.10-0.60); BASOPHIL % 0.1 % (0.0-2.0); EOSINOPHIL % 1.6 % (0-5); GRANULOCYTE % 90.5 % (42.2-75.2); HEMATOCRIT 26.9 % (42-52); MEAN CORPUSCULAR HGB CONC 33.1 G/DL (33.0-37.0); MEAN CORPUSCULAR VOLUME 93.7 FL (80.0-94.0); MEAN PLATELET VOLUME 7.3 FL (7.4-10.4); PLATELET COUNT 352 /CUMM (130-400); RBC DISTRIBUTION WIDTH 16.3 % (11.5-14.5); RED BLOOD CELL CT 2.87 /CUMM (4.70-6.10); WHITE BLOOD CELL COUNT 14.1 /CUMM (4.8-10.8)
[2017-12-06 09:30] LABS: PTT 66 SEC (25-37)
[2017-12-06 14:31] VITALS: BP 100/76
--- NOTE | 2017-12-06 14:50 | ULTRASOUND REPORT ---
EXAMINATION: US TRIPLEX LOWER EXTREMITY, BILATERAL CLINICAL INFORMATION: 77-year-old patient presenting with bilateral leg edema and swelling with leg tenderness and cramping. History of previous superficial thrombophlebitis involving the right greater saphenous vein October,. COMPARISON: Bilateral leg venous ultrasound of 11/04/2017 TECHNIQUE: Color-flow triplex imaging with spectral analysis and compression Doppler were performed on both lower extremities. FINDINGS: Respiratory variation, normal compression and augmented flow are noted throughout the lower extremity. The visualized common femoral vein, superficial femoral vein, profunda femoral vein, popliteal vein and midcalf peroneal and posterior tibial venous segments show no evidence of deep venous thrombosis. There is no Williamson's cyst. Subcutaneous edema was noted bilaterally. IMPRESSION: No evidence of deep venous thrombosis involving either lower extremity. Subcutaneous edema noted.
--- NOTE | 2017-12-06 15:08 | PN- Cardiology ---
See Addendum Subjective Subjective: Patient is unchanged today, complaining of extreme lethargy. He has not had any seizure activity, denies chest pains. Dyspnea is slightly better however he still presents a moderate amount of bilateral crackles on exam. Heart rate has been relatively fast, and atrial flutter between 120 and 130 most of the time. Echocardiogram performed yesterday showed severe hypokinesis of the left ventricle with an ejection fraction estimated between 20 and 25%. Patient is unaware if this is a new finding. He claims that he has underwent an echocardiogram at [facility] a few months ago. Objective Vital Signs and I&Os Vital Signs Date Time Temp Pulse Resp B/P B/P Pulse O2 O2 Flow FiO2 Mean Ox Delivery Rate 12/06 1431 97.4 134 20 100/76 100 Nasal Cannula 12/06 0935 131 104/72 12/06 0657 98.0 131 18 104/72 97 Nasal Cannula 12/06 0000 Nasal 2.0L Cannula 12/05 2237 97.4 128 20 96/62 96 Nasal Cannula 12/05 2054 126 96/58 Intake & Output 12/06 1600 12/06 0800 12/06 0000 12/05 1600 12/05 0800 12/05 0000 Intake Total 1520 1600 1500 1500 100 Output Total 75 30 50 100 Balance 1445 1600 1470 1450 0 Intake, IV 1400 1400 1400 1400 Intake, Oral 120 200 100 100 100 Output, Urine 75 30 50 100 Patient 176 lb 156 lb Weight Weight Bed scale Bed scale Measurement Method Physical Exam: General: Sleepy lethargic, but oriented. Moderate distress. Eyes: No obvious scleral icterus. HEENT: No jugular venous distention or abnormal jugular venous pulsations. Cardiovascular: Normal intensity S1/S2. Irregular Respiratory: Bilateral crackles ad midfield, decreased air entry at the bases Abdomen: no guarding or rebound tenderness. Musculoskeletal: No clubbing or cyanosis noted Skin: warm Current Medications: Current Medications Sig/Dalia Start time Last Medication Dose Route Stop Time Status Admin Acetaminophen 0 .STK-MED ONE 12/05 180 DC PO Acetaminophen 650 MG ONCE PRN 12/05 1800 AC 12/06 PO 0934 Dextrose/Sodium 1,000 ML Q10H 12/04 1500 AC 12/06 Chloride IV 0033 Docusate Sodium 100 MG DAILY 12/05 09 AC 12/06 PO 0935 Heparin Sodium 25,000 UNIT Q24H 12/04 1830 AC 12/05 (Porcine) IV 2208 Sodium Chloride 500 ML Insulin Aspart 0 TIDAC 12/03 1700 AC 12/05 SC 1905 Levetiracetam 500 MG Q12 12/02 2099 AC 12/06 N/A 1 UNIT IV 0930 Lorazepam 1 MG Q6 PRN 12/04 1430 AC 12/05 PO 2349 Magnesium Chloride 64 MG BID 12/05 2099 AC PO Metoprolol Tartrate 12.5 MG BID 12/06 2099 AC PO Metoprolol Tartrate 6.25 MG BID 12/03 1312 DC 12/06 PO 0935 Ondansetron HCl 4 MG Q6P PRN 12/02 1730 AC IV Oxycodone HCl 10 MG Q6P PRN 12/03 1230 AC 12/04 PO 1931 Pantoprazole Sodium 40 MG BID 12/02 2099 AC 12/06 IV 0935 Senna/Docusate Sodium 1 TAB BID 12/04 2099 AC 12/06 PO 0935 Sodium Bicarbonate 75 MEQ Q13H 12/04 2099 AC 12/06 Dextrose/Sodium 1,000 ML IV 0044 Chloride Results Last 48 Hrs of Labs/Mics: Laboratory Tests 12/06/17 0800: APTT 66 H 12/06/17 0625: Anion Gap 11, Estimated GFR 15 L, BUN/Creatinine Ratio 17.4, Magnesium 1.4 L, CBC w Diff NO MAN DIFF REQ, RBC 2.87 L, MCV 93.7, MCH 31.0, MCHC 33.1, RDW 16.3 H, MPV 7.3 L, Gran % 90.5 H, Lymphocytes % 3.9 L, Monocytes % 3.9, Eosinophils % 1.6, Basophils % 0.1, Absolute Granulocytes 12.8 H, Absolute Lymphocytes 0.5 L, Absolute Monocytes 0.6, Absolute Eosinophils 0.2, Absolute Basophils 0 12/06/17 0030: APTT 59 H 12/05/17 1230: APTT 95 H 12/05/17 0335: Anion Gap 12, Estimated GFR 13 L, BUN/Creatinine Ratio 16.4, Phosphorus 4.7 H, Magnesium 1.5 L, APTT 108 *H, CBC w Diff MAN DIFF ORDERED, RBC 2.90 L, MCV 93.3, MCH 31.4 H, MCHC 33.6, RDW 16.1 H, MPV 7.4, Gran % 91.3 H, Lymphocytes % 3.6 L, Monocytes % 4.8, Eosinophils % 0.1, Basophils % 0.2, Absolute Granulocytes 13.0 H, Absolute Lymphocytes 0.5 L, Absolute Monocytes 0.7 H, Absolute Eosinophils 0, Absolute Basophils 0, Platelet Estimate ADEQUATE, Polychromasia 1+ 12/04/17 1800: Phosphorus Cancelled, CBC w Diff Cancelled, WBC Cancelled, RBC Cancelled, Hgb Cancelled, Hct Cancelled, MCV Cancelled, MCH Cancelled, MCHC Cancelled, RDW Cancelled, Plt Count Cancelled, MPV Cancelled Assessment/Plan Assessment/Plan Congestive heart failure with reduced ejection fraction of 20-25% on echocardiogram. Patient is already known for coronary artery disease status post multiple stenting's as well as coronary bypass surgery, it is not known however how long the ejection fraction has been this low. In the context of new onset atrial flutter with fast ventricular response, tachyarrhythmic cardiomyopathy should also be considered. A small dose of beta- oskar was initiated yesterday, which will be increased today (metoprolol 25 mg by mouth twice daily). I would continue diuresis with the same dosage of furosemide as the patient is slowly but consistently in negative fluid balance, and the setting of his acute kidney injury. Patient's prostate cancer is assumed to be metastatic given para-aortic pathological lymph nodes observed on CT, however there is no sign of metastasis to the brain on latest MRI. Please obtain the patient's report of latest echocardiogram from [facility]. Continue telemetry? Yes
--- NOTE | 2017-12-06 19:13 | PN- Att Addend ---
Attending Addendum Attending Brief Note 77M PMH T2DM, HTN, HLD, CAD s/p [place] and CABG 2002, history of prostate cancer s/p chemotherapy and radioactive seeding, history of colon cancer s/p sigmoidectomy 2010, last colonoscopy 05/2017 was normal, history of multiple back surgeries, currently mostly wheelchair bound due to back pain and deconditioning, presented initially with weakness, lethargy, visual hallucinations, and witnessed tonic- clonic seizure at home. Workup revealed uremia, obstructive uropathy, and AASHISH, which may be causing his encephalopathy and seizure. He also has extensive retroperitoneal metastatic disease and lung metastases with unknown primary malignancy. CT and MRI of the head were negative. Patient was found to be in atrial fibrillation but this is not new and is present on old records. Old records also show para-aortic lymphadenopathy on a CT from November 2016, CXR from 08/2017 shows no evidence of nodules or metastases. Had discussion with family. Will proceed with thoracentesis tomorrow. Family will think about lung nodule biopsy if no pathology yield from thoracentesis. Renal function improving. Patient is comfortable and pain is controlled. 1. Uremic encephalopathy 2. 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 Metastatic disease with unknown primary malignancy 4. Lung metastases with bilateral malignant effusions 5. AASHISH secondary to obstructive uropathy and dehydration 6. Chronic atrial fibrillation 7. Deconditioning 8. Moderate protein calorie malnutrition Plan - Continue telemetry - NPO after midnight for thoracentesis. Stop heparin drip in the morning. - Follow nephrology, urology, palliative care, and cardiology recommendations - Monitor urine output - Continue heparin drip, risks and benefits discussed, see resident note - Continue Keppra - Avoid opioids as it causes delirium in patient. Pain is controlled with Tylenol. - Continue Senna and Colace to prevent opioid induced constipation - Regular diet - Continue home medications - DVT PPx with ALPS
[2017-12-06 21:02] LABS: PTT 77 SEC (25-37)
[2017-12-06 23:27] VITALS: BP 114/78
--- NOTE | 2017-12-07 05:46 | PN- Housestaff ---
Luther Dozier 12/07/17 0546: Subjective Follow-up For: metastatic disease, colon, prostate cancer, obstructive uropathy, Acute on chronic kidney disease. seizures.atrial fib Complaints: no complaints Tele-Events Since Last Visit: HR- 137, continues to be in ATrial fibrillaton. Subjective: Patient examined lying in the bed . patient feels better, well oriented to time place and person. States that he has reduced drowsiness and feeling of paranoid after changing his pain medications. Review of Systems Constitutional: Denies: chills, diaphoresis, fever, malaise, weakness, unexplained weight loss. Cardiovascular: Denies: chest pain, edema, palpitations, syncope. Respiratory: Denies: cough, short of breath, stridor. Gastrointestinal: Denies: abdominal pain, diarrhea, nausea, vomiting. Genitourinary: Reports: see HPI. Musculoskeletal: Denies: muscle pain. Objective Last 24 Hrs of Vital Signs/I&O Vital Signs Date Time Temp Pulse Resp B/P B/P Pulse O2 O2 Flow FiO2 Mean Ox Delivery Rate 12/07 0000 94 Nasal 2.0L Cannula 12/06 2327 97.6 101 20 114/78 93 Room Air 12/06 2115 160 18 100/76 12/06 1431 97.4 134 20 100/76 100 Nasal Cannula 12/06 0935 131 104/72 12/06 0800 Nasal 2.0L Cannula 12/06 0657 98.0 131 18 104/72 97 Nasal Cannula Intake & Output 12/07 0800 12/07 0000 12/06 1600 Intake Total 1560 1540 1600 Output Total 280 350 Balance 1560 1260 1250 Intake, IV 1560 1440 1600 Intake, Oral 100 Number 5 Bowel Movements Output, Urine 280 350 Physical Exam General Appearance: Alert, Oriented X3, Cooperative, No Acute Distress Cardiovascular: Normal S1, Normal S2 Lungs: dcereased air movement in the lung bases Abdomen: Soft Neurological: Normal Speech Extremities: B/l pedal edema Current Medications: Current Medications Sig/Dalia Start time Last Medication Dose Route Stop Time Status Admin Acetaminophen 650 MG ONCE PRN 12/05 1800 AC 12/06 PO 2118 Dextrose/Sodium 1,000 ML Q10H 12/04 1500 AC 12/07 Chloride IV 0109 Docusate Sodium 100 MG DAILY 12/05 0900 AC 12/06 PO 0935 Heparin Sodium 25,000 UNIT Q24H 12/04 1830 AC 12/07 (Porcine) IV 12/07 0700 0135 Sodium Chloride 500 ML Insulin Aspart 0 TIDAC 12/03 1700 AC 12/06 SC 1725 Levetiracetam 500 MG Q12 12/02 2100 AC 12/06 N/A 1 UNIT IV 2117 Lorazepam 1 MG Q6 PRN 12/04 1430 AC 12/05 PO 2349 Magnesium Chloride 64 MG BID 12/05 2100 AC PO Metoprolol Tartrate 12.5 MG BID 12/06 2100 AC 12/06 PO 2115 Metoprolol Tartrate 6.25 MG BID 12/03 1312 DC 12/06 PO 0935 Ondansetron HCl 4 MG Q6P PRN 12/02 1730 AC IV Oxycodone HCl 10 MG Q6P PRN 12/03 1230 AC 12/04 PO 1931 Pantoprazole Sodium 40 MG BID 12/02 2099 AC 12/06 IV 2124 Senna/Docusate Sodium 1 TAB BID 12/04 2099 AC 12/06 PO 2124 Sodium Bicarbonate 75 MEQ Q13H 12/04 2099 AC 12/07 Dextrose/Sodium 1,000 ML IV 0103 Chloride Last 24 Hrs of Lab/Donell Results Last 24 Hrs of Labs/Mics: Laboratory Tests 12/06/17 2020: APTT 77 H 12/06/17 0800: APTT 66 H Assessment/Plan Assessment: 77-year-old male with PMH HTN, DM 2, HLD, CAD, post CABG 2002, prostate cancer S/P chemo and radiotherapy , colon cancer in 2010 with colonoscopy in 08/2017, with multiple surgeries came with history of GTCS. Workup revealed uremia with obstructive uropathy, AASHISH. old records also show para-aortic lymphadenopathy on a CT from November 2016, CXR from 08/2017 shows no evidence of nodules or metastases. 1) ACute on chronic kidney injury Creatinine is 3.7. Decreased total urine output. 170 ml yesterday Nephrology - Continue IV fluids at 50 ml / hr, with sodium bicarbonate. Mg- 1.4 , Po4- 4.3, supplemented with Mg 2) ACute Left sided Hydroureteronephrosis- -Urology consulted for obstructive nephropathy- stated that patient has minimal left hydronephrosis and normal right kidney, and unlikely is causing acute renal failure. Looks like picture of dehydration causing elevation in creatinine. Recommended hydration and close monitoring -considering stenting of ureter only if there is no significant improvement monitor UO Urine output yesterday was 170 mL 3) New onset seizure- - CT, MRI negative -EEG- generalized slowing of the backgrounds with no focal or epileptiform features - Patient is currently on Keppra, more likely due to uremia - Did not have any further episodes of Seizures 4)Atrial fibrillation -HR overnight 120 Patient is in RVR, [id number] atleast 6, Patient is started on 12.5 mg of metoprolol and need go up to 25 mg twice daily as per cardiology opinion. Observe heart rate, tolerate some mild permissive tachycardia for normal ANticoagulation -d/c IV heparin for possible biopsy echocardiogram -EF 20-25%, global left ventricular hypokinesia seen Previous ECHO from [facility] done on 07/12 shows EF - 45-50% Monitor Vitals 5) Upper GI bleed-- coffee ground emesis- - No further episodes of Emesis - Heparin may be restarted over the weekend, watch fopr hematemesis 6)ANemia- normocytic- iron deficiency - due to GI bleed, earlier. No further GI bleed - receievd 1 prbc during the hospital course - HB-8.4 , - 7)Metastatic disease with unknown primary malignancy-\ Thursday- Call IR for Biopsy. patient has not been on plavix and inform them that -oxycodone 10 mg not dicontinued, tyelenol prn ordered as per patients request, and patient does not want to contiue oxycodone as it makes him paranoid. -Possible lung biopsy today, will talk to IR - H/O Prostate cancer and colon cancer, with retroperitoneal mass and multiple mets in the lungs -Manage pain and other symptoms as per DR Ayala Problem List: 1. Atrial fibrillation 2. Tonic clonic seizures 3. AASHISH (acute kidney injury) Pain Ratin Pain Location: back, thigh Pain Goal: Remain pain free Pain Plan: tyelenol Tomorrow's Labs & Rationales: CBC, BMP Erlin Wilson MD 12/07/17 1210: Attending MD Review Statement Attending Statement Attending MD Statement: examined this patient, discuss w/resident/PA/CHLORINATOR OPERATOR, agreed w/resident/PA/CHLORINATOR OPERATOR, reviewed EMR data (avail) Attending Assessment/Plan: 77M PMH T2DM, HTN, HLD, CAD s/p [place] and CABG 2002, history of prostate cancer s/p chemotherapy and radioactive seeding, history of colon cancer s/p sigmoidectomy 2010, last colonoscopy 05/2017 was normal, history of multiple back surgeries, currently mostly wheelchair bound due to back pain and deconditioning, presented initially with weakness, lethargy, visual hallucinations, and witnessed tonic- clonic seizure at home. Workup revealed uremia, obstructive uropathy, and AASHISH, which may be causing his encephalopathy and seizure. He also has extensive retroperitoneal metastatic disease and lung metastases with unknown primary malignancy. CT and MRI of the head were negative. Patient was found to be in atrial fibrillation but this is not new and is present on old records. Old records also show para-aortic lymphadenopathy on a CT from November 2016, CXR from 08/2017 shows no evidence of nodules or metastases. Will proceed with thoracentesis today and discuss options pending cytology. 1. Uremic encephalopathy 2. 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 Metastatic disease with unknown primary malignancy 4. Lung metastases with bilateral malignant effusions 5. AASHISH secondary to obstructive uropathy and dehydration 6. Chronic atrial fibrillation 7. Deconditioning 8. Moderate protein calorie malnutrition Plan - Continue telemetry - Follow nephrology, urology, palliative care, and cardiology recommendations - Monitor urine output - Continue heparin drip, risks and benefits discussed, see resident note - Continue Keppra - Avoid opioids if possible, as it causes delirium in patient - Regular diet - Continue home medications - DVT PPx with ALPS *Family would like to be present in all discussions with patient* *Family would like to be present in all discussions with patient*
[2017-12-07 07:02] VITALS: BP 110/66
[2017-12-07 08:12] LABS: PT 14.4 SEC (9.4-12.5)
[2017-12-07 08:13] LABS: ABSOLUTE BASOPHIL COUNT 0 /CUMM (0.0-0.2); ABSOLUTE EOSINOPHIL COUNT 0 /CUMM (0.0-0.7); ABSOLUTE GRANULOCYTE CT 9.3 /CUMM (1.4-6.5); ABSOLUTE LYMPH COUNT 0.4 /CUMM (1.2-3.4); ABSOLUTE MONOCYTE COUNT 0.4 /CUMM (0.10-0.60); BASOPHIL % 0.1 % (0.0-2.0); EOSINOPHIL % 0.4 % (0-5); HEMATOCRIT 25.5 % (42-52); MEAN CORPUSCULAR HGB 30.9 PG (27.0-31.0); MEAN CORPUSCULAR VOLUME 93.6 FL (80.0-94.0); MEAN PLATELET VOLUME 7.4 FL (7.4-10.4); PLATELET COUNT 321 /CUMM (130-400); RBC DISTRIBUTION WIDTH 16.6 % (11.5-14.5); RED BLOOD CELL CT 2.73 /CUMM (4.70-6.10); WHITE BLOOD CELL COUNT 10.2 /CUMM (4.8-10.8)
[2017-12-07 09:18] LABS: GRANULOCYTE % 91.5 % (42.2-75.2)
--- NOTE | 2017-12-07 13:16 | RADIOLOGY REPORT ---
EXAMINATION:\H\ \N\XR CHEST CLINICAL INFORMATION: Right thoracentesis. Evaluate for pneumothorax. COMPARISON: 11/04/2017. TECHNIQUE: Frontal view of the chest was obtained. FINDINGS: No pneumothorax. Small to moderate left pleural effusion. Cardiomediastinal silhouette stable. IMPRESSION: No pneumothorax.
--- NOTE | 2017-12-07 13:39 | ULTRASOUND REPORT ---
PROCEDURE: ULTRASOUND-GUIDED THORACENTESIS, RIGHT CLINICAL INFORMATION: Pleural effusion SPECIMEN: A specimen was appropriately labeled and sent to the laboratory as requested. ACCESS: 6 Romansh [id number] closed needle/catheter system. PROCEDURALISTS: Lauri Mitchell MD CONSENT: Informed consent was obtained from the patient's daughter prior to the procedure. During this process, the procedure and potential alternatives were explained along with the intended outcome and benefits. The risks of the procedure, including the possibility of an unsuccessful procedure as well as the risk of not doing the procedure were discussed. The patient's daughter was given the opportunity to ask any questions regarding the procedure and appeared competent to make medical decisions. A signed consent form which documents this discussion was placed in the medical record. A timeout procedure was performed. TECHNIQUE/FINDINGS: Appropriate pre-procedure medical history and imaging studies were reviewed. The patient was brought to the ultrasound room. Ultrasound images of the chest were obtained to localize the right pleural effusion. Images were permanently saved to the record. All elements of maximal sterile barrier technique followed including use of cap, mask, sterile gown, sterile gloves, a sterile full body drape and hand hygiene. Also followed skin preparation with 2% chlorhexidine for cutaneous antisepsis, and sterile ultrasound preparation with sterile gel and probe cover when applicable. A suitable access site was chosen using a posterolateral approach. The skin was prepped and draped in the standard sterile fashion. 10 mL of 1% lidocaine was used to obtain local anesthesia of the skin and deeper tissues. The pleura was anesthetized. A 6 Romansh [id number]-B-Pzqeosyn closed needle/catheter system was utilized for access. 1.3 liters of serous fluid was aspirated before drainage ceased. The catheter was removed and sterile dressing applied. The patient tolerated the procedure well without evidence of complications. Postprocedure chest x-ray was ordered and dictated separately. IMPRESSION: Ultrasound-guided diagnostic and therapeutic right thoracentesis yielding 1.3 liters of serous fluid as described.
[2017-12-07 14:58] VITALS: BP 110/78
--- NOTE | 2017-12-07 15:39 | PN- Nephrology ---
Assessment/Plan Nephrology Assessment: 1. Acute kidney injury. His renal function has improved somewhat. Urology does not believe and likely quite rightly, that the left-sided obstruction is playing without significant overall in the acute kidney injury. Please note, the EGFR is usable only in chronic kidney disease, not acute. That equation pre -supposes stable renal function. 2. Presumed metastatic cancer. At this point, a biopsy is not being pursued. He did have a thoracentesis in an effort to look for malignancy. I am told that the family does not want to pursue a formal biopsy. 3. Seizures. This would seem rather to see uremic seizures at a creatinine of 4.7. In years past, this would not be seen until the creatinine was 10, 11 or 14 mg/dL or higher. This would also be with blood urea nitrogen's of greater than 150 mg/dL. I think attributing the seizures to uremia is not likely. In addition, speaking of renal replacement therapy, given this clinical situation this is not something that would be recommended. In fact, pre-supposing a widely metastatic lesion whether it be from lung or from the GI tract, dialysis would be contraindicated. 4. Volume status. He appears fluid overloaded. Would maintain strict intakes and outputs and daily weights. 5. Coronary artery disease status post coronary artery bypass grafting 6. Hypertension 7. Hyperlipidemia 8. History of colon cancer 9. History of prostate cancer 10. History of a chronic indwelling Santos 11. Diabetes mellitus type 2 Suggestion: 1. Would decrease the IV fluids to 50 cc/h. 2. Await the results of the thoracentesis 3. Would not offer dialysis should the need arise. Subjective Subjective: Patient seems withdrawn. He says he feels better. Objective Vital Signs and I&Os Vital Signs Date Time Temp Pulse Resp B/P B/P Pulse O2 O2 Flow FiO2 Mean Ox Delivery Rate 12/07 1458 96.6 132 20 110/78 98 Nasal 2.0L Cannula 12/07 0834 136 110/66 12/07 0800 96 Nasal 2.0L Cannula 12/07 0702 97.4 135 18 110/66 98 Room Air 12/07 0000 94 Nasal 2.0L Cannula 12/06 2327 97.6 101 20 114/78 93 Room Air 12/06 2115 160 18 100/76 Intake & Output 12/07 1600 12/07 0400 12/06 1600 12/06 0400 12/05 1600 12/05 0400 Intake Total 1560 1540 3120 1600 3000 100 Output Total 280 425 80 100 Balance 1560 1260 2695 1600 2920 0 Intake, IV 1560 1440 3000 1400 2800 Intake, Oral 100 120 200 200 100 Number 5 Bowel Movements Output, Urine 280 425 80 100 Patient 176 lb 156 lb Weight Weight Bed scale Bed scale Measurement Method Physical Exam General Appearance: well developed/nourished, no apparent distress, alert, awake Head: atraumatic, normal appearance Ears, Nose, Throat: normal ENT inspection, hearing grossly normal Neck: normal inspection Respiratory: normal breath sounds, lungs clear Cardiovascular: regular rate/rhythm, edema Abdomen: normal bowel sounds, soft, non-tender, No Bruits Extremities: normal inspection, pedal edema, swelling, positive edema Neurologic/Psychiatric: no motor/sensory deficits, awake, alert Skin: intact Current Medications: Current Medications Sig/Dalia Start time Last Medication Dose Route Stop Time Status Admin Acetaminophen 650 MG Q4P PRN 12/07 1500 AC PO Acetaminophen 650 MG ONCE PRN 12/05 1800 AC 12/06 PO 2118 Dextrose/Sodium 1,000 ML Q10H 12/04 1500 DC 12/07 Chloride IV 0109 Docusate Sodium 100 MG DAILY 12/05 0900 AC 12/07 PO 0834 Heparin Sodium 25,000 UNIT Q24H 12/07 1500 AC (Porcine) IV Sodium Chloride 500 ML Heparin Sodium 25,000 UNIT Q24H 12/04 1830 DC 12/07 (Porcine) IV 12/07 0700 0135 Sodium Chloride 500 ML Insulin Aspart 0 TIDAC 12/03 1700 AC 12/06 SC 1725 Levetiracetam 500 MG Q12 12/02 2100 AC 12/07 N/A 1 UNIT IV 0835 Lidocaine 1 ML .STK-MED ONE 12/07 1308 DC ID 12/07 1309 Lorazepam 1 MG Q6 PRN 12/04 1430 AC 12/05 PO 2349 Magnesium Chloride 64 MG BID 12/05 2100 AC PO Magnesium Sulfate 1 GM ONCE ONE 12/07 1400 AC Dextrose/Water 100 ML IV 12/07 1759 Magnesium Sulfate 1 GM ONCE ONE 12/07 0745 DC 12/07 Dextrose/Water 100 ML IV 12/07 1144 1047 Metoprolol Tartrate 25 MG BID 12/07 0900 AC 12/07 PO 0834 Metoprolol Tartrate 12.5 MG BID 12/06 2099 DC 12/06 PO 2115 Ondansetron HCl 4 MG Q6P PRN 12/02 1730 AC IV Oxycodone HCl 10 MG Q6P PRN 12/03 1230 AC 12/04 PO 1931 Pantoprazole Sodium 40 MG BID 12/02 2099 AC 12/07 IV 0835 Senna/Docusate Sodium 1 TAB BID 12/04 2099 AC 12/07 PO 0834 Sodium Bicarbonate 50 MEQ Q20H 12/08 0300 AC Dextrose/Sodium 1,000 ML IV Chloride Sodium Bicarbonate 75 MEQ Q13H 12/04 2099 AC 12/07 Dextrose/Sodium 1,000 ML IV 12/08 0259 0103 Chloride Results Pertinent Lab Results: Laboratory Tests 12/07 12/07 12/07 12/06 1225 1225 0640 2020 Chemistry Sodium (137 - 145 mmol/L) 134 L Potassium (3.5 - 5.1 mmol/L) 3.6 Chloride (98 - 107 mmol/L) 105 Carbon Dioxide (22 - 30 mmol/L) 19 L Anion Gap (5 - 16) 10 BUN (9 - 20 mg/dL) 64 H Creatinine (0.7 - 1.2 mg/dL) 3.7 H Estimated GFR (>60 ml/min) 16 L BUN/Creatinine Ratio (7 - 25 %) 17.3 Uric Acid (3.5 - 8.5 mg/dL) 9.0 H Calcium (8.4 - 10.2 mg/dL) 7.4 L Phosphorus (2.5 - 4.5 mg/dL) 4.3 Magnesium (1.6 - 2.3 mg/dL) 1.4 L Total Bilirubin (0.2 - 1.3 mg/dL) 0.6 Direct Bilirubin (< 0.4 mg/dL) 0.5 H AST (17 - 59 U/L) 21 ALT (21 - 72 U/L) 26 Alkaline Phosphatase (< 127 U/L) 94 Total Protein (6.3 - 8.2 g/dL) 4.8 L Albumin (3.5 - 5.0 g/dL) 2.1 L Coagulation PT (9.4 - 12.5 SEC) 14.4 H INR (0.90 - 1.17) 1.32 H APTT (25 - 37 SEC) 77 H Hematology CBC w Diff NO MAN DIFF REQ WBC (4.8 - 10.8 /CUMM) 10.2 RBC (4.70 - 6.10 /CUMM) 2.73 L Hgb (14.0 - 18.0 G/DL) 8.4 L Hct (42 - 52 %) 25.5 L MCV (80.0 - 94.0 FL) 93.6 MCH (27.0 - 31.0 PG) 30.9 MCHC (33.0 - 37.0 G/DL) 33.0 RDW (11.5 - 14.5 %) 16.6 H Plt Count (130 - 400 /CUMM) 321 MPV (7.4 - 10.4 FL) 7.4 Gran % (42.2 - 75.2 %) 91.5 H Lymphocytes % (20.5 - 51.1 %) 4.2 L Monocytes % (1.7 - 9.3 %) 3.8 Eosinophils % (0 - 5 %) 0.4 Basophils % (0.0 - 2.0 %) 0.1 Absolute Granulocytes (1.4 - 6.5 /CUMM) 9.3 H Absolute Lymphocytes (1.2 - 3.4 /CUMM) 0.4 L Lymphocytes (%) 4 Absolute Monocytes (0.10 - 0.60 /CUMM) 0.4 Absolute Eosinophils (0.0 - 0.7 /CUMM) 0 Absolute Basophils (0.0 - 0.2 /CUMM) 0 % Normal PMNs (%) 4 Other Body Source Fluid WBC (0 - 5 /CUMM) 101 H Fld Mesothelial Cells (%) 92 Fld Total RBCs Counted (0 /CUMM) 41 H Fluid Glucose (mg/dL) 157 Fluid Total Protein (g/dL) < 2.0 Fluid Albumin (g/dL) < 1.0 Fluid LDH (U/L) 235 Fluid Amylase (U/L) < 30 12/06 12/06 12/06 08 0800 0625 0030 1230 Chemistry Sodium (137 - 145 mmol/L) 135 L Potassium (3.5 - 5.1 mmol/L) 3.8 Chloride (98 - 107 mmol/L) 104 Carbon Dioxide (22 - 30 mmol/L) 19 L Anion Gap (5 - 16) 11 BUN (9 - 20 mg/dL) 68 H Creatinine (0.7 - 1.2 mg/dL) 3.9 H Estimated GFR (>60 ml/min) 15 L BUN/Creatinine Ratio (7 - 25 %) 17.4 Magnesium (1.6 - 2.3 mg/dL) 1.4 L Coagulation APTT (25 - 37 SEC) 66 H 59 H 95 H Hematology CBC w Diff NO MAN DIFF REQ WBC (4.8 - 10.8 /CUMM) 14.1 H RBC (4.70 - 6.10 /CUMM) 2.87 L Hgb (14.0 - 18.0 G/DL) 8.9 L Hct (42 - 52 %) 26.9 L MCV (80.0 - 94.0 FL) 93.7 MCH (27.0 - 31.0 PG) 31.0 MCHC (33.0 - 37.0 G/DL) 33.1 RDW (11.5 - 14.5 %) 16.3 H Plt Count (130 - 400 /CUMM) 352 MPV (7.4 - 10.4 FL) 7.3 L Gran % (42.2 - 75.2 %) 90.5 H Lymphocytes % (20.5 - 51.1 %) 3.9 L Monocytes % (1.7 - 9.3 %) 3.9 Eosinophils % (0 - 5 %) 1.6 Basophils % (0.0 - 2.0 %) 0.1 Absolute Granulocytes (1.4 - 6.5 /CUMM) 12.8 H Absolute Lymphocytes (1.2 - 3.4 /CUMM) 0.5 L Absolute Monocytes (0.10 - 0.60 /CUMM) 0.6 Absolute Eosinophils (0.0 - 0.7 /CUMM) 0.2 Absolute Basophils (0.0 - 0.2 /CUMM) 0 12/05 12/04 0335 1800 Chemistry Sodium (137 - 145 mmol/L) 134 L Potassium (3.5 - 5.1 mmol/L) 4.0 Chloride (98 - 107 mmol/L) 103 Carbon Dioxide (22 - 30 mmol/L) 18 L Anion Gap (5 - 16) 12 BUN (9 - 20 mg/dL) 72 H Creatinine (0.7 - 1.2 mg/dL) 4.4 H Estimated GFR (>60 ml/min) 13 L BUN/Creatinine Ratio (7 - 25 %) 16.4 Phosphorus (2.5 - 4.5 mg/dL) 4.7 H Cancelled Magnesium (1.6 - 2.3 mg/dL) 1.5 L Coagulation APTT (25 - 37 SEC) 108 *H Hematology CBC w Diff MAN DIFF ORDERED Cancelled WBC (4.8 - 10.8 /CUMM) 14.2 H Cancelled RBC (4.70 - 6.10 /CUMM) 2.90 L Cancelled Hgb (14.0 - 18.0 G/DL) 9.1 L Cancelled Hct (42 - 52 %) 27.0 L Cancelled MCV (80.0 - 94.0 FL) 93.3 Cancelled MCH (27.0 - 31.0 PG) 31.4 H Cancelled MCHC (33.0 - 37.0 G/DL) 33.6 Cancelled RDW (11.5 - 14.5 %) 16.1 H Cancelled Plt Count (130 - 400 /CUMM) 325 Cancelled MPV (7.4 - 10.4 FL) 7.4 Cancelled Gran % (42.2 - 75.2 %) 91.3 H Lymphocytes % (20.5 - 51.1 %) 3.6 L Monocytes % (1.7 - 9.3 %) 4.8 Eosinophils % (0 - 5 %) 0.1 Basophils % (0.0 - 2.0 %) 0.2 Absolute Granulocytes (1.4 - 6.5 /CUMM) 13.0 H Absolute Lymphocytes (1.2 - 3.4 /CUMM) 0.5 L Absolute Monocytes (0.10 - 0.60 /CUMM) 0.7 H Absolute Eosinophils (0.0 - 0.7 /CUMM) 0 Absolute Basophils (0.0 - 0.2 /CUMM) 0 Platelet Estimate (ADEQUATE) ADEQUATE Polychromasia 1+
--- NOTE | 2017-12-07 15:57 | PN- Palliative Care Social Wrk ---
Social Work Assessment/Plan Social Work Assessment/Plan: Referral received from Dr. Ayala on December 04. This patient is a 77 year old man, admitted to the hospital on 12/02/17 with a seizure. Further workup in the hospital reveals metastatic disease with unknow primary site. Patient had thoracentesis performed today; patient and family plan to await findings before deciding on direction of care. I saw patient today after he had his thoracentesis. Daughters David and Marla and son Efrain were present. Family reports wish to bring patient home when stable. Family reports that Marla is the default Healthcare Tooling Mechanic; siblings report that they collaborate on all decisions. Will follow and collaborate as indicated.
--- NOTE | 2017-12-07 19:07 | PN- Cardiology ---
Subjective Subjective: Patient seen at bedside. He denies chest pain, palpitations, dyspnea at rest. Patient denies current orthopnea. He feels that his legs are somewhat swollen. Objective Vital Signs and I&Os Vital Signs Date Time Temp Pulse Resp B/P B/P Pulse O2 O2 Flow FiO2 Mean Ox Delivery Rate 12/07 1458 96.6 132 20 110/78 98 Nasal 2.0L Cannula 12/07 0834 136 110/66 12/07 0800 96 Nasal 2.0L Cannula 12/07 0702 97.4 135 18 110/66 98 Room Air 12/07 0000 94 Nasal 2.0L Cannula 12/06 2327 97.6 101 20 114/78 93 Room Air 12/06 2115 160 18 100/76 Intake & Output 12/07 1600 12/07 0800 12/07 0000 12/06 1600 12/06 0800 12/06 0000 Intake Total 600 1560 1540 1600 1520 1600 Output Total 280 350 75 Balance 600 1560 1260 1250 1445 1600 Intake, IV 500 1560 1440 1600 1400 1400 Intake, Oral 100 100 120 200 Number 5 Bowel Movements Output, Urine 280 350 75 Patient 79.832 kg Weight Weight Bed scale Measurement Method Physical Exam: General: no apparent distress, elderly male lying in bed HEENT: NCAT, NO JVD Heart: s1s2, irregular rhythm, tachycardic, no MRG Lungs: Decreased bibasilar breath sounds left more than right Abd: soft, nt Ext: 1+ lower extremity pitting edema bilaterally to the knees Current Medications: Current Medications Sig/Dalia Start time Last Medication Dose Route Stop Time Status Admin Acetaminophen 650 MG Q4P PRN 12/07 1500 AC PO Acetaminophen 650 MG ONCE PRN 12/05 1800 AC 12/06 PO 2118 Dextrose/Sodium 1,000 ML Q10H 12/04 1500 DC 12/07 Chloride IV 0109 Docusate Sodium 100 MG DAILY 12/05 0900 AC 12/07 PO 0834 Heparin Sodium 25,000 UNIT Q24H 12/07 1500 AC 12/07 (Porcine) IV 1715 Sodium Chloride 500 ML Heparin Sodium 25,000 UNIT Q24H 12/04 1830 DC 12/07 (Porcine) IV 12/07 0700 0135 Sodium Chloride 500 ML Insulin Aspart 0 TIDAC 12/03 1700 AC 12/06 SC 1725 Levetiracetam 500 MG Q12 12/02 2100 AC 12/07 N/A 1 UNIT IV 0835 Lidocaine 1 ML .STK-MED ONE 12/07 1308 DC ID 12/07 1309 Lorazepam 1 MG Q6 PRN 12/04 1430 AC 12/05 PO 2349 Magnesium Chloride 64 MG BID 12/05 2100 AC PO Magnesium Sulfate 1 GM ONCE ONE 12/07 1400 DC 12/07 Dextrose/Water 100 ML IV 12/07 1759 1714 Magnesium Sulfate 1 GM ONCE ONE 12/07 0745 DC 12/07 Dextrose/Water 100 ML IV 12/07 1144 1047 Metoprolol Tartrate 25 MG BID 12/07 0900 AC 12/07 PO 0834 Metoprolol Tartrate 12.5 MG BID 12/06 2100 DC 12/06 PO 2115 Ondansetron HCl 4 MG Q6P PRN 12/02 1730 AC IV Oxycodone HCl 10 MG Q6P PRN 12/03 1230 AC 12/04 PO 1931 Pantoprazole Sodium 40 MG BID 12/02 2100 AC 12/07 IV 0835 Senna/Docusate Sodium 1 TAB BID 12/04 2100 AC 12/07 PO 0834 Sodium Bicarbonate 50 MEQ Q20H 12/08 0300 AC Dextrose/Sodium 1,000 ML IV Chloride Sodium Bicarbonate 75 MEQ Q13H 12/04 2100 AC 12/07 Dextrose/Sodium 1,000 ML IV 12/08 0259 1450 Chloride Results Last 48 Hrs of Labs/Mics: Laboratory Tests 12/07/17 1225: Fluid WBC 101 H, Fld Mesothelial Cells 92, Fld Total RBCs Counted 41 H 12/07/17 1225: Lymphocytes 4, % Normal PMNs 4, Fluid Glucose 157, Fluid Total Protein < 2.0, Fluid Albumin < 1.0, Fluid LDH 235, Fluid Amylase < 30 12/07/17 0640: Anion Gap 10, Estimated GFR 16 L, BUN/Creatinine Ratio 17.3, Uric Acid 9.0 H, Calcium 7.4 L, Phosphorus 4.3, Magnesium 1.4 L, Total Bilirubin 0.6, Direct Bilirubin 0.5 H, AST 21, ALT 26, Alkaline Phosphatase 94, Total Protein 4.8 L, Albumin 2.1 L, PT 14.4 H, INR 1.32 H, CBC w Diff NO MAN DIFF REQ, RBC 2.73 L , MCV 93.6, MCH 30.9, MCHC 33.0, RDW 16.6 H, MPV 7.4, Gran % 91.5 H, Lymphocytes % 4.2 L, Monocytes % 3.8, Eosinophils % 0.4, Basophils % 0.1, Absolute Granulocytes 9.3 H, Absolute Lymphocytes 0.4 L, Absolute Monocytes 0.4, Absolute Eosinophils 0, Absolute Basophils 0 12/06/17 2020: APTT 77 H 12/06/17 0800: APTT 66 H 12/06/17 0625: Anion Gap 11, Estimated GFR 15 L, BUN/Creatinine Ratio 17.4, Magnesium 1.4 L, CBC w Diff NO MAN DIFF REQ, RBC 2.87 L, MCV 93.7, MCH 31.0, MCHC 33.1, RDW 16.3 H, MPV 7.3 L, Gran % 90.5 H, Lymphocytes % 3.9 L, Monocytes % 3.9, Eosinophils % 1.6, Basophils % 0.1, Absolute Granulocytes 12.8 H, Absolute Lymphocytes 0.5 L, Absolute Monocytes 0.6, Absolute Eosinophils 0.2, Absolute Basophils 0 12/06/17 0030: APTT 59 H Recent Imaging Studies: CXR 12/07/2017: No pneumothorax. Small to moderate left pleural effusion. Cardiomediastinal silhouette stable IMPRESSION: No pneumothorax. TTE 12/04/2017: Severe global left ventricular hypokinesis. The ejection fraction is visually estimated at 20-25 %. High left ventricular filling pressure. The right ventricle is mildly enlarged with reduced right ventricular global systolic function. The left atrium is normal is midly enlarged. There is calcification of the mitral annulus There is mild mitral regurgitation. Sclerosis of the aortic valve leaflets without significant transvalvular gradient. There is mild tricuspid regurgitation. RVSP is estimated at 30-35 mmHg. There is tarce pulmonic regurgitation. Normal pericardium without effusion. Ascending aorta is not well visualized. Telemetry personally reviewed: Atrial fibrillation with RVR, occasionally aberrant conducted beats and PVCs Assessment/Plan Assessment/Plan 1. coronary artery disease status post CABG (last cath May 2014 showed patent MORTON to LAD, patent SVG to OM, [employer]' of SVG to LPDA) 2. ischemic cardiomyopathy/HFrEF (last echo 06/30/2017 LVEF 45-50%); TTE this admission showing LVEF 20-25%, possibly tachycardia induced cardiomyopathy versus progression of ischemic cardiomyopathy 3. PAD status post femoral stenting 4. hypertension 5. hyperlipidemia 6. diabetes 7. spinal stenosis 8. arthritis 9. prostate cancer s/p chemotherapy and sead implants, as per CT chest/abdomen/ pelvis current concern for metastatic disease 10. Possible seizure 11. Newly diagnosed atrial fibrillation/flutter, not currently on anti- coagulation due to coffee-ground emesis while in the emergency room 12. Acute renal failure 13. pleural effusions s/p R thoracocentesis Patient remains tachycardic however heart rate is improved from admission. Hesitant to add digoxin for now given the patient's renal failure. Would recommend cautious increase in metoprolol to 37.5mg PO BID. Trend blood pressure. Transthoracic echocardiogram showed severely reduced LV systolic function with severe global hypokinesis. This may be a tachycardia induced cardiomyopathy versus some other nonischemic etiology, or may be progression of his known ischemic cardiomyopathy. ACEI/ARB/ARNI must be held due to his renal function. For now continue with beta oskar. Recommend cautious administration of IV fluids given his severe LV systolic dysfunction. A BRIANNE/cardioversion can be considered to restore sinus rhythm, however ideally the patient would be anticoagulated. He has had no further episodes of coffee- ground emesis. Hemoglobin is stable. Consider initiating anticoagulation when cleared given elevated chads vasc score. Continue telemetry? Yes
[2017-12-07 21:56] LABS: PTT 78 SEC (25-37)
--- NOTE | 2017-12-08 06:15 | PN- Housestaff ---
Luther Dozier 12/08/17 0614: Subjective Follow-up For: Colon, prostate cancer, Atrial fibrillation, ureteral obstruction, akute kidney injury Complaints: pain 12/04 Tele-Events Since Last Visit: in Atrial fibrillation , HR 140- 150 Subjective: Pateient was examined bedside, lying down, complained of pain everywhere. He asked for pain medications. Review of Systems Constitutional: Denies: chills, diaphoresis, fever, malaise, weakness, unexplained weight loss. Cardiovascular: Denies: chest pain, palpitations. Respiratory: Denies: cough, hemoptysis, orthopnea, short of breath. Gastrointestinal: Denies: abdominal pain, constipation, diarrhea, nausea, vomiting. Genitourinary: Denies: dysuria. Objective Last 24 Hrs of Vital Signs/I&O Vital Signs Date Time Temp Pulse Resp B/P B/P Pulse O2 O2 Flow FiO2 Mean Ox Delivery Rate 12/08 1753 142 110/70 12/08 1447 97.3 110 18 94/62 99 Nasal Cannula 12/08 0800 145 112/76 12/08 0640 97.8 120 18 116/74 100 Nasal Cannula 12/07 2324 97.5 142 18 96 Nasal Cannula 12/07 2152 98 Nasal 2.0L Cannula Intake & Output 12/08 1600 12/08 0800 12/08 0000 Intake Total 850 500 500 Output Total 300 400 300 Balance 550 100 200 Intake, IV 600 500 500 Intake, Oral 250 Output, Urine 300 400 300 Patient 180 lb Weight Weight Bed scale Measurement Method Physical Exam General Appearance: Alert, Oriented X3, Cooperative, No Acute Distress Cardiovascular: Regular Rate, No Murmurs Lungs: decreased breath sounds in the bases Abdomen: Soft Current Medications: Current Medications Sig/Dalia Start time Last Medication Dose Route Stop Time Status Admin Acetaminophen 650 MG Q4P PRN 12/07 1500 AC PO Acetaminophen 650 MG ONCE PRN 12/05 1800 AC 12/08 PO 1955 Docusate Sodium 100 MG DAILY 12/05 0900 AC 12/08 PO 0759 Heparin Sodium 0 .STK-MED ONE 12/08 2010 DC (Porcine) .ROUTE Heparin Sodium 0 .STK-MED ONE 12/08 2009 DC (Porcine) .ROUTE Heparin Sodium 25,000 UNIT Q24H 12/07 1500 AC 12/08 (Porcine) IV 1300 Sodium Chloride 500 ML Hydrocodone Bitart/ 1 TAB Q4P PRN 12/08 1730 AC Acetaminophen PO Hydrocodone Bitart/ 0 .STK-MED ONE 12/07 2117 DC Acetaminophen PO Hydrocodone Bitart/ 1 TAB Q6P PRN 12/07 2115 DC 12/08 Acetaminophen PO 1656 Insulin Aspart 0 TIDAC 12/03 1700 AC 12/06 SC 1725 Levetiracetam 500 MG Q12 12/02 2100 AC 12/08 N/A 1 UNIT IV 1954 Lorazepam 1 MG Q6 PRN 12/04 1430 AC 12/08 PO 1955 Magnesium Chloride 64 MG BID 12/05 2100 AC PO Magnesium Sulfate 1 GM ONCE ONE 12/08 0845 DC 12/08 Dextrose/Water 100 ML IV 12/08 1244 0955 Metoprolol Tartrate 37.5 MG BID 12/07 2100 AC 12/08 PO 1753 Ondansetron HCl 4 MG Q6P PRN 12/02 1730 AC IV Oxycodone HCl 10 MG Q6P PRN 12/03 1230 AC 12/04 PO 1931 Pantoprazole Sodium 40 MG BID 12/02 2100 AC 12/08 IV 1955 Potassium Chloride 40 MEQ ONCE ONE 12/08 0845 DC 12/08 PO 12/08 0846 0847 Senna/Docusate Sodium 1 TAB BID 12/04 2100 AC 12/07 PO 0834 Sodium Bicarbonate 50 MEQ Q20H 12/08 0830 AC 12/08 Dextrose/Sodium 1,000 ML IV 0812 Chloride Sodium Bicarbonate 50 MEQ Q20H 12/08 0300 DC Dextrose/Sodium 1,000 ML IV Chloride Sodium Bicarbonate 50 MEQ Q13H 12/07 2215 DC Dextrose/Sodium 1,000 ML IV Chloride Sodium Bicarbonate 75 MEQ Q13H 12/04 2100 DC 12/07 Dextrose/Sodium 1,000 ML IV 12/08 0259 1450 Chloride Last 24 Hrs of Lab/Donell Results Last 24 Hrs of Labs/Mics: Laboratory Tests 12/08/17 1800: APTT 36 12/08/17 0945: APTT 102 *H 12/08/17 0611: Anion Gap 10, Estimated GFR 18 L, BUN/Creatinine Ratio 18.5, Calcium 7.6 L, Magnesium 1.6, Lactate Dehydrogenase 783 H, CBC w Diff NO MAN DIFF REQ, RBC 2.97 L, MCV 92.9, MCH 31.0, MCHC 33.3, RDW 16.8 H, MPV 7.3 L, Gran % 86.4 H, Lymphocytes % 6.4 L, Monocytes % 5.6, Eosinophils % 1.5, Basophils % 0.1, Absolute Granulocytes 7.8 H, Absolute Lymphocytes 0.6 L, Absolute Monocytes 0.5, Absolute Eosinophils 0.1, Absolute Basophils 0 12/07/172121: APTT 78 H Assessment/Plan Assessment: 77-year-old male with PMH HTN, DM 2, HLD, CAD, post CABG 2002, prostate cancer S/P chemo and radiotherapy , colon cancer in 2010 with colonoscopy in 08/2017, with multiple surgeries came with history of GTCS. Workup revealed uremia with obstructive uropathy, AASHISH. old records also show para-aortic lymphadenopathy on a CT from November 2016, CXR from 08/2017 shows no evidence of nodules or metastases. 1) ACute on chronic kidney injury Monitor electrolyetes and BEP continue IV fluids as per nephro Monitor I/O 2) ACute Left sided Hydroureteronephrosis- -Urology consulted for obstructive nephropathy- stated that patient has minimal left hydronephrosis and normal right kidney, and unlikely is causing acute renal failure. Looks like picture of dehydration causing elevation in creatinine. Recommended hydration and close monitoring -considering stenting of ureter only if there is no significant improvement monitor UO 3) New onset seizure- - CT, MRI negative -EEG- generalized slowing of the backgrounds with no focal or epileptiform features - Patient is currently on Keppra, more likely due to uremia - Did not have any further episodes of Seizures 4)Atrial fibrillation -HR overnight 140 - 150 Patient is in RVR, [id number] atleast 6, metoprolol increased to 37.5 mg as per cardiology opinion. Observe heart rate, tolerate some mild permissive tachycardia for normal, and monitor BP ANticoagulation -d/c IV heparin for possible biopsy echocardiogram -EF 20-25%, global left ventricular hypokinesia seen Previous ECHO from [facility] done on 07/12 shows EF - 45-50% Monitor Vitals 5) Upper GI bleed-- coffee ground emesis- - No further episodes of Emesis - On Heparin drip , watch fopr hematemesis , - 7)Metastatic disease with unknown primary malignancy -oxycodone 10 mg not dicontinued, tyelenol prn ordered as per patients request, and patient does not want to contiue oxycodone as it makes him paranoid. -Manage pain and other symptoms as per DR Ayala - Thoracentsis was done yesterday and cytology did not show any Metastasised cells. Problem List: 1. Atrial fibrillation 2. Metastasis 3. AASHISH (acute kidney injury) 4. Tonic clonic seizures Pain Ratin Pain Location: back Pain Goal: Pain 4 or less Pain Plan: Tyelenol Tomorrow's Labs & Rationales: CBC, BMP Erlin Wilson MD 12/08/17 1054: Attending MD Review Statement Attending Statement Attending MD Statement: examined this patient, discuss w/resident/PA/RETAIL PERFORMANCE SPECIALIST, agreed w/resident/PA/RETAIL PERFORMANCE SPECIALIST, reviewed EMR data (avail) Attending Assessment/Plan: 77M PMH T2DM, HTN, HLD, CAD s/p CA and CABG 2002, history of prostate cancer s/p chemotherapy and radioactive seeding, history of colon cancer s/p sigmoidectomy 2010, last colonoscopy 05/2017 was normal, history of multiple back surgeries, currently mostly wheelchair bound due to back pain and deconditioning, presented initially with weakness, lethargy, visual hallucinations, and witnessed tonic- clonic seizure at home. Workup revealed uremia, obstructive uropathy, and AASHISH, which may be causing his encephalopathy and seizure. He also has extensive retroperitoneal metastatic disease and lung metastases with unknown primary malignancy. CT and MRI of the head were negative. Patient was found to be in atrial fibrillation but this is not new and is present on old records. Old records also show para-aortic lymphadenopathy on a CT from November 2016, CXR from 08/2017 shows no evidence of nodules or metastases. Right thoracentesis performed 12/07 removing 1.3L of serous fluid that appears to be exudative with pleural LDH 235. 1. Uremic encephalopathy 2. 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 Metastatic disease with unknown primary malignancy 4. Lung metastases with bilateral malignant effusions 5. AASHISH secondary to obstructive uropathy and dehydration 6. Chronic atrial fibrillation 7. Deconditioning 8. Moderate protein calorie malnutrition Plan - Continue telemetry - Await pathology - Follow nephrology, urology, palliative care, and cardiology recommendations - Monitor urine output - Continue heparin drip, risks and benefits discussed, see resident note - Continue Keppra - Avoid opioids if possible, as it causes delirium in patient - Regular diet - Continue home medications - DVT PPx with ALPS - Per patient's son, no further procedures are desired, and the family wishes to take the patient home. Will call palliative care for a follow up evaluation and coordinate with social work and case management. Still awaiting pathology results from pleural fluid.
[2017-12-08 06:40] VITALS: BP 116/74
[2017-12-08 07:32] LABS: ABSOLUTE BASOPHIL COUNT 0 /CUMM (0.0-0.2); ABSOLUTE EOSINOPHIL COUNT 0.1 /CUMM (0.0-0.7); ABSOLUTE GRANULOCYTE CT 7.8 /CUMM (1.4-6.5); ABSOLUTE LYMPH COUNT 0.6 /CUMM (1.2-3.4); ABSOLUTE MONOCYTE COUNT 0.5 /CUMM (0.10-0.60); BASOPHIL % 0.1 % (0.0-2.0); EOSINOPHIL % 1.5 % (0-5); HEMATOCRIT 27.6 % (42-52); MEAN CORPUSCULAR HGB CONC 33.3 G/DL (33.0-37.0); MEAN CORPUSCULAR VOLUME 92.9 FL (80.0-94.0); MEAN PLATELET VOLUME 7.3 FL (7.4-10.4); PLATELET COUNT 340 /CUMM (130-400); RBC DISTRIBUTION WIDTH 16.8 % (11.5-14.5); RED BLOOD CELL CT 2.97 /CUMM (4.70-6.10); WHITE BLOOD CELL COUNT 9.1 /CUMM (4.8-10.8)
[2017-12-08 08:06] LABS: GRANULOCYTE % 86.4 % (42.2-75.2)
--- NOTE | 2017-12-08 10:00 | PN- Urology ---
Surgical Brief Attending Note Brief Attending Note: Pt overall comfortable:VSS afebrile: U/O and renal function improving with hydration. REcommend f/u renal US.
--- NOTE | 2017-12-08 11:13 | PN- Cardiology ---
Subjective Subjective: Patient complains of shortness of breath but denies chest discomfort. He is status post thoracentesis. Review of Systems: Eyes no blurred or double vision Ears no deafness or ringing Nose and throat no recurrent sinusitis Lungs per history of present illness Heart per history of present illness Abdomen no nausea vomiting Musculoskeletal occasional muscle and joint pains Psych no anxiety or depression Neuro without recurrent headache or seizures Endocrine no heat or cold intolerance Objective Vital Signs and I&Os Vital Signs Date Time Temp Pulse Resp B/P B/P Pulse O2 O2 Flow FiO2 Mean Ox Delivery Rate 12/08 08 145 112/76 12/08 0640 97.8 120 18 116/74 100 Nasal Cannula 12/074 97.5 142 18 96 Nasal Cannula 12/08 2151 98 Nasal 2.0L Cannula 12/07 2024 98/60 12/07 1458 96.6 132 20 110/78 98 Nasal 2.0L Cannula Intake & Output 12/08 1600 12/08 0800 12/08 0000 12/07 1600 12/07 0812/07 0000 Intake Total 500 171 683 3596 1540 Output Total 400 300 280 Balance 100 546 751 2269 1260 Intake, IV 500 487 361 8615 1440 Intake, Oral 100 100 Number 5 Bowel Movements Output, Urine 400 300 280 Physical Exam: Patient is a well-developed well-nourished male appearing in mild respiratory distress HEENT is unremarkable Neck is supple there is no JVD Lungs decreased breath sounds left base Heart irregular rhythm S1 and S2 are normal no murmurs gallops or rubs Abdomen bowel sounds positive Extremities without edema Current Medications: Current Medications Sig/Dalia Start time Last Medication Dose Route Stop Time Status Admin Acetaminophen 650 MG Q4P PRN 12/07 1500 AC PO Acetaminophen 650 MG ONCE PRN 12/05 1800 AC 12/06 PO 211 Docusate Sodium 100 MG DAILY 12/05 09 AC 12/08 PO 0759 Heparin Sodium 25,000 UNIT Q24H 12/07 1500 AC 12/07 (Porcine) IV 1715 Sodium Chloride 500 ML Hydrocodone Bitart/ 0 .STK-MED ONE 12/07 2116 DC Acetaminophen PO Hydrocodone Bitart/ 1 TAB Q6P PRN 12/07 211 AC 12/08 Acetaminophen PO 0628 Insulin Aspart 0 TIDAC 12/03 1700 AC 12/06 SC 1725 Levetiracetam 500 MG Q12 12/02 2100 AC 12/08 N/A 1 UNIT IV 0819 Lidocaine 1 ML .STK-MED ONE 12/07 1308 DC ID 12/07 1309 Lorazepam 1 MG Q6 PRN 12/04 1430 AC 12/05 PO 2349 Magnesium Chloride 64 MG BID 12/05 2100 AC PO Magnesium Sulfate 1 GM ONCE ONE 12/08 0845 AC 12/08 Dextrose/Water 100 ML IV 12/08 1244 0955 Magnesium Sulfate 1 GM ONCE ONE 12/07 1400 DC 12/07 Dextrose/Water 100 ML IV 12/07 1759 1714 Magnesium Sulfate 1 GM ONCE ONE 12/07 0745 DC 12/07 Dextrose/Water 100 ML IV 12/07 1144 1047 Metoprolol Tartrate 37.5 MG BID 12/07 2099 AC 12/08 PO 0800 Metoprolol Tartrate 25 MG BID 12/07 0900 DC 12/07 PO 0834 Ondansetron HCl 4 MG Q6P PRN 12/02 1730 AC IV Oxycodone HCl 10 MG Q6P PRN 12/03 1230 AC 12/04 PO 1931 Pantoprazole Sodium 40 MG BID 12/02 2100 AC 12/08 IV 0803 Potassium Chloride 40 MEQ ONCE ONE 12/08 0845 DC 12/08 PO 12/08 0846 0847 Senna/Docusate Sodium 1 TAB BID 12/04 2100 AC 12/07 PO 0834 Sodium Bicarbonate 50 MEQ Q20H 12/08 0830 AC 12/08 Dextrose/Sodium 1,000 ML IV 0812 Chloride Sodium Bicarbonate 50 MEQ Q20H 12/08 0300 DC Dextrose/Sodium 1,000 ML IV Chloride Sodium Bicarbonate 50 MEQ Q13H 12/07 2215 DC Dextrose/Sodium 1,000 ML IV Chloride Sodium Bicarbonate 75 MEQ Q13H 12/04 2100 DC 12/07 Dextrose/Sodium 1,000 ML IV 12/08 0259 1450 Chloride Results Last 48 Hrs of Labs/Mics: Laboratory Tests 12/08/17 0945: APTT Pending 12/08/17 0611: Anion Gap 10, Estimated GFR 18 L, BUN/Creatinine Ratio 18.5, Calcium 7.6 L, Magnesium 1.6, Lactate Dehydrogenase Pending, CBC w Diff NO MAN DIFF REQ, RBC 2.97 L, MCV 92.9, MCH 31.0, MCHC 33.3, RDW 16.8 H, MPV 7.3 L, Gran % 86.4 H, Lymphocytes % 6.4 L, Monocytes % 5.6, Eosinophils % 1.5, Basophils % 0.1, Absolute Granulocytes 7.8 H, Absolute Lymphocytes 0.6 L, Absolute Monocytes 0.5, Absolute Eosinophils 0.1, Absolute Basophils 0 12/07/17 2122: APTT 78 H 12/07/17 1225: Fluid WBC 101 H, Fld Mesothelial Cells 92, Fld Total RBCs Counted 41 H 12/07/17 1225: Lymphocytes 4, % Normal PMNs 4, Fluid Glucose 157, Fluid Total Protein < 2.0, Fluid Albumin < 1.0, Fluid LDH 235, Fluid Amylase < 30 12/07/17 0640: Anion Gap 10, Estimated GFR 16 L, BUN/Creatinine Ratio 17.3, Uric Acid 9.0 H, Calcium 7.4 L, Phosphorus 4.3, Magnesium 1.4 L, Total Bilirubin 0.6, Direct Bilirubin 0.5 H, AST 21, ALT 26, Alkaline Phosphatase 94, Total Protein 4.8 L, Albumin 2.1 L, PT 14.4 H, INR 1.32 H, CBC w Diff NO MAN DIFF REQ, RBC 2.73 L , MCV 93.6, MCH 30.9, MCHC 33.0, RDW 16.6 H, MPV 7.4, Gran % 91.5 H, Lymphocytes % 4.2 L, Monocytes % 3.8, Eosinophils % 0.4, Basophils % 0.1, Absolute Granulocytes 9.3 H, Absolute Lymphocytes 0.4 L, Absolute Monocytes 0.4, Absolute Eosinophils 0, Absolute Basophils 0 12/06/17 2020: APTT 77 H Telemetry personally reviewed atrial fibrillation heart rate 90 to low 100s Assessment/Plan Assessment/Plan 1. coronary artery disease status post CABG (last cath May 2014 showed patent MORTON to LAD, patent SVG to OM, [employer] of SVG to LPDA) 2. ischemic cardiomyopathy/HFrEF (last echo 06/30/2017 LVEF 45-50%); TTE this admission showing LVEF 20-25%, possibly tachycardia induced cardiomyopathy versus progression of ischemic cardiomyopathy 3. PAD status post femoral stenting 4. hypertension 5. hyperlipidemia 6. diabetes 7. spinal stenosis 8. arthritis 9. prostate cancer s/p chemotherapy and sead implants, as per CT chest/abdomen/ pelvis current concern for metastatic disease 10. Possible seizure 11. Newly diagnosed atrial fibrillation/flutter, not currently on anti- coagulation due to coffee-ground emesis while in the emergency room 12. Acute renal failure 13. pleural effusions s/p R thoracocentesis Recommendations 1. Check pathology on pleural fluid 2. Continue current medications 3. Per previous progress notes patient's family has decided to forego any further testing or intervention. Therefore will not plan BRIANNE cardioversion Continue telemetry? Yes
[2017-12-08 11:48] LABS: PTT 102 SEC (25-37)
--- NOTE | 2017-12-08 12:00 | PN- Nephrology ---
Assessment/Plan Nephrology Assessment: 1. Acute kidney injury. His renal function has improved. injury. 2. Presumed metastatic cancer. At this point, a biopsy is not being pursued. Status post thoracentesis 3. Seizures. Reviewing some issues with regards to uremic encephalopathy, it is very unusual according to one source to see uremic encephalopathy in EGFR's greater than 5 cc/min. This would be consistent with clinical experience where seizures and encephalopathy are usually seen in the last throws of uremia generally prior to the appearance of uremic hartley. [address] at least creatinine numbers on it, that would be a creatinine of greater than 10. It would also correspond to BUNs greater than 150 mg/dL. Clearly, this patient's lab values did not reflect that degree of renal dysfunction. 4. Volume status. He appears fluid overloaded. Would maintain strict intakes and outputs and daily weights. He has not been weighed in a few days 5. Coronary artery disease status post coronary artery bypass grafting 6. Hypertension 7. Hyperlipidemia 8. History of colon cancer 9. History of prostate cancer 10. History of a chronic indwelling Santos 11. History of diabetes mellitus Suggestion: 1. Continue with the fluids as ordered. 2. Please weigh the patient. 3. Did not discuss with patient his son but would not consider this patient a candidate for hemodialysis given the evidence as it has been presented. 4. Await the results of the pleural fluid analysis. Subjective Subjective: Patient says he is breathing no better. Objective Vital Signs and I&Os Vital Signs Date Time Temp Pulse Resp B/P B/P Pulse O2 O2 Flow FiO2 Mean Ox Delivery Rate 12/08 0800 145 112/76 12/08 0640 97.8 120 18 116/74 100 Nasal Cannula 12/08 2323 97.5 142 18 96 Nasal Cannula 12/08 2151 98 Nasal 2.0L Cannula 12/07 2024 98/60 12/07 1458 96.6 132 20 110/78 98 Nasal 2.0L Cannula Intake & Output 12/08 0400 12/07 04012/06 040 Intake Total 888 188 2995 1540 3120 1600 Output Total 400 300 280 425 Balance 152 803 9700 1260 2695 1600 Intake, IV 316 174 8985 1440 3000 1400 Intake, Oral 100 100 120 200 Number 5 Bowel Movements Output, Urine 400 300 280 425 Patient 176 lb Weight Weight Bed scale Measurement Method Physical Exam: Physical Exam General Appearance: well developed/nourished, no apparent distress, alert, awake Head: atraumatic, normal appearance Ears, Nose, Throat: normal ENT inspection, hearing grossly normal Neck: normal inspection Respiratory: Decreased breath sounds at the bases. I did not sit him up. Cardiovascular: regular rate/rhythm, edema Abdomen: normal bowel sounds, questionable tenderness left lower quadrant, No Bruits Extremities: normal inspection, anasarca Neurologic/Psychiatric: Lethargic but without gross deficits, awake, alert Skin: intact Results Pertinent Lab Results: Laboratory Tests 12/08 12/08 12/07 12/07 0945 0611 2122 1225 Chemistry Sodium (137 - 145 mmol/L) 134 L Potassium (3.5 - 5.1 mmol/L) 3.6 Chloride (98 - 107 mmol/L) 103 Carbon Dioxide (22 - 30 mmol/L) 20 L Anion Gap (5 - 16) 10 BUN (9 - 20 mg/dL) 63 H Creatinine (0.7 - 1.2 mg/dL) 3.4 H Estimated GFR (>60 ml/min) 18 L BUN/Creatinine Ratio (7 - 25 %) 18.5 Calcium (8.4 - 10.2 mg/dL) 7.6 L Magnesium (1.6 - 2.3 mg/dL) 1.6 Lactate Dehydrogenase (313 - 618 U/L) 783 H Coagulation APTT (25 - 37 SEC) 102 *H 78 H Hematology CBC w Diff NO MAN DIFF REQ WBC (4.8 - 10.8 /CUMM) 9.1 RBC (4.70 - 6.10 /CUMM) 2.97 L Hgb (14.0 - 18.0 G/DL) 9.2 L Hct (42 - 52 %) 27.6 L MCV (80.0 - 94.0 FL) 92.9 MCH (27.0 - 31.0 PG) 31.0 MCHC (33.0 - 37.0 G/DL) 33.3 RDW (11.5 - 14.5 %) 16.8 H Plt Count (130 - 400 /CUMM) 340 MPV (7.4 - 10.4 FL) 7.3 L Gran % (42.2 - 75.2 %) 86.4 H Lymphocytes % (20.5 - 51.1 %) 6.4 L Monocytes % (1.7 - 9.3 %) 5.6 Eosinophils % (0 - 5 %) 1.5 Basophils % (0.0 - 2.0 %) 0.1 Absolute Granulocytes (1.4 - 6.5 /CUMM) 7.8 H Absolute Lymphocytes (1.2 - 3.4 /CUMM) 0.6 L Absolute Monocytes (0.10 - 0.60 /CUMM) 0.5 Absolute Eosinophils (0.0 - 0.7 /CUMM) 0.1 Absolute Basophils (0.0 - 0.2 /CUMM) 0 Other Body Source Fluid WBC (0 - 5 /CUMM) 101 H Fld Mesothelial Cells (%) 92 Fld Total RBCs Counted (0 /CUMM) 41 H 12/07 12/07 12/06 12/06 1225 0640 2020 0800 Chemistry Sodium (137 - 145 mmol/L) 134 L Potassium (3.5 - 5.1 mmol/L) 3.6 Chloride (98 - 107 mmol/L) 105 Carbon Dioxide (22 - 30 mmol/L) 19 L Anion Gap (5 - 16) 10 BUN (9 - 20 mg/dL) 64 H Creatinine (0.7 - 1.2 mg/dL) 3.7 H Estimated GFR (>60 ml/min) 16 L BUN/Creatinine Ratio (7 - 25 %) 17.3 Uric Acid (3.5 - 8.5 mg/dL) 9.0 H Calcium (8.4 - 10.2 mg/dL) 7.4 L Phosphorus (2.5 - 4.5 mg/dL) 4.3 Magnesium (1.6 - 2.3 mg/dL) 1.4 L Total Bilirubin (0.2 - 1.3 mg/dL) 0.6 Direct Bilirubin (< 0.4 mg/dL) 0.5 H AST (17 - 59 U/L) 21 ALT (21 - 72 U/L) 26 Alkaline Phosphatase (< 127 U/L) 94 Total Protein (6.3 - 8.2 g/dL) 4.8 L Albumin (3.5 - 5.0 g/dL) 2.1 L Coagulation PT (9.4 - 12.5 SEC) 14.4 H INR (0.90 - 1.17) 1.32 H APTT (25 - 37 SEC) 77 H 66 H Hematology CBC w Diff NO MAN DIFF REQ WBC (4.8 - 10.8 /CUMM) 10.2 RBC (4.70 - 6.10 /CUMM) 2.73 L Hgb (14.0 - 18.0 G/DL) 8.4 L Hct (42 - 52 %) 25.5 L MCV (80.0 - 94.0 FL) 93.6 MCH (27.0 - 31.0 PG) 30.9 MCHC (33.0 - 37.0 G/DL) 33.0 RDW (11.5 - 14.5 %) 16.6 H Plt Count (130 - 400 /CUMM) 321 MPV (7.4 - 10.4 FL) 7.4 Gran % (42.2 - 75.2 %) 91.5 H Lymphocytes % (20.5 - 51.1 %) 4.2 L Monocytes % (1.7 - 9.3 %) 3.8 Eosinophils % (0 - 5 %) 0.4 Basophils % (0.0 - 2.0 %) 0.1 Absolute Granulocytes (1.4 - 6.5 /CUMM) 9.3 H Absolute Lymphocytes (1.2 - 3.4 /CUMM) 0.4 L Lymphocytes (%) 4 Absolute Monocytes (0.10 - 0.60 /CUMM) 0.4 Absolute Eosinophils (0.0 - 0.7 /CUMM) 0 Absolute Basophils (0.0 - 0.2 /CUMM) 0 % Normal PMNs (%) 4 Other Body Source Fluid Glucose (mg/dL) 157 Fluid Total Protein (g/dL) < 2.0 Fluid Albumin (g/dL) < 1.0 Fluid LDH (U/L) 235 Fluid Amylase (U/L) < 30 12/06 12/06 12/05 0625 0030 1230 Chemistry Sodium (137 - 145 mmol/L) 135 L Potassium (3.5 - 5.1 mmol/L) 3.8 Chloride (98 - 107 mmol/L) 104 Carbon Dioxide (22 - 30 mmol/L) 19 L Anion Gap (5 - 16) 11 BUN (9 - 20 mg/dL) 68 H Creatinine (0.7 - 1.2 mg/dL) 3.9 H Estimated GFR (>60 ml/min) 15 L BUN/Creatinine Ratio (7 - 25 %) 17.4 Magnesium (1.6 - 2.3 mg/dL) 1.4 L Coagulation APTT (25 - 37 SEC) 59 H 95 H Hematology CBC w Diff NO MAN DIFF REQ WBC (4.8 - 10.8 /CUMM) 14.1 H RBC (4.70 - 6.10 /CUMM) 2.87 L Hgb (14.0 - 18.0 G/DL) 8.9 L Hct (42 - 52 %) 26.9 L MCV (80.0 - 94.0 FL) 93.7 MCH (27.0 - 31.0 PG) 31.0 MCHC (33.0 - 37.0 G/DL) 33.1 RDW (11.5 - 14.5 %) 16.3 H Plt Count (130 - 400 /CUMM) 352 MPV (7.4 - 10.4 FL) 7.3 L Gran % (42.2 - 75.2 %) 90.5 H Lymphocytes % (20.5 - 51.1 %) 3.9 L Monocytes % (1.7 - 9.3 %) 3.9 Eosinophils % (0 - 5 %) 1.6 Basophils % (0.0 - 2.0 %) 0.1 Absolute Granulocytes (1.4 - 6.5 /CUMM) 12.8 H Absolute Lymphocytes (1.2 - 3.4 /CUMM) 0.5 L Absolute Monocytes (0.10 - 0.60 /CUMM) 0.6 Absolute Eosinophils (0.0 - 0.7 /CUMM) 0.2 Absolute Basophils (0.0 - 0.2 /CUMM) 0
[2017-12-08 14:47] VITALS: BP 94/62
[2017-12-08 19:22] LABS: PTT 36 SEC (25-37)
--- NOTE | 2017-12-08 19:45 | PN- Palliative Care ---
Subjective Subjective: Patient seen for f/u of palliative consultation. Patient without complaints of pain. He reports analgesia is effective. He is looking forward to returning home. Case discussed with housestaff. At this time, it appears that family are in effect making decisions for patient. While these decisions appear reasonable, appropriate, the lack of direct input on the part of the patient has been somewhat unsettling and does raise concerns about patient's autonomy in this process. Today, he appears in agreement with the plan to return home. There are no plans at present to obtain further specimens to confirm the exact etiology of what appears to be a malignant process. Comfort care in the setting of a widely metastatic process, in the face of ongoing chronic medical conditions is an appropriate choice. Objective Last 24 Hrs of Vital Signs/I&O Vital Signs Date Time Temp Pulse Resp B/P B/P Pulse O2 O2 Flow FiO2 Mean Ox Delivery Rate 12/08 1753 142 110/70 12/08 1447 97.3 110 18 94/62 99 Nasal Cannula 12/08 0800 145 112/76 12/08 0640 97.8 120 18 116/74 100 Nasal Cannula 12/07 2324 97.5 142 18 96 Nasal Cannula 12/07 2152 98 Nasal 2.0L Cannula 12/07 2025 98/60 Intake & Output 12/08 1600 12/08 0800 12/08 0000 Intake Total 850 500 500 Output Total 300 400 300 Balance 550 100 200 Intake, IV 600 500 500 Intake, Oral 250 Output, Urine 300 400 300 Physical Exam: elderly male, in bed, NAD Lungs - grossly clear to ausculatation CV - RR Abd - soft Extr - no edema Neuro - awake and alert, speech fluent w/o dysarthria Assessment/Plan Assessment 77M w/ metastatic process Patient's Condition: serious Prognosis: grave Is Patient Decisional? limited Case Discussed With: patient, house staff Goals of Care: comfort measures only Treatment Preferences: 1. Continue w/ analgesia, symptom management 2. Pt to return home on hospice care
[2017-12-08 22:15] VITALS: BP 96/58
[2017-12-09 03:15] LABS: PTT > 120 SEC (25-37)
[2017-12-09 07:03] VITALS: BP 112/60
--- NOTE | 2017-12-09 08:23 | PN- Housestaff ---
See Addendum Subjective Follow-up For: Colon, prostate cancer, Atrial fibrillation, ureteral obstruction, akute kidney injury Tele-Events Since Last Visit: in Atrial fibrillation , HR 140- 150 Subjective: Patient was examined at bedside this morning while he was sleeping. He complains of pain in the chest. Review of Systems Constitutional: Denies: diaphoresis, fever, malaise, weakness, unexplained weight loss. Cardiovascular: Reports: no symptoms. Respiratory: Reports: no symptoms. Gastrointestinal: Reports: no symptoms. Genitourinary: Reports: no symptoms. Objective Last 24 Hrs of Vital Signs/I&O Vital Signs Date Time Temp Pulse Resp B/P B/P Pulse O2 O2 Flow FiO2 Mean Ox Delivery Rate 12/09 1410 96.9 140 20 110/64 99 Nasal 2.0L Cannula 12/09 0800 97 Nasal 2.0L Cannula 12/09 0703 97.5 120 18 112/60 91 Nasal Cannula 12/09 0604 141 112/60 12/08 2215 97.0 98 18 96/58 98 Nasal Cannula 12/08 2107 Nasal 2.0L Cannula 12/08 1753 142 110/70 Intake & Output 12/09 1600 12/09 0800 12/09 0000 Intake Total 500 507.2 280 Output Total 350 Balance 500 157.2 280 Intake, IV 480 507.2 280 Intake, Oral 20 Output, Urine 350 Patient 190 lb Weight Weight Bed scale Measurement Method Physical Exam General Appearance: Alert, Oriented X3, Cooperative, Mild Distress Cardiovascular: Regular Rate, No Murmurs Lungs: decreased breath sounds Abdomen: Normal Bowel Sounds, Soft, No Tenderness, No Hepatospenomegaly, No Masses Neurological: Normal Speech, Strength at 5/5 X4 Ext, Normal Tone, Sensation Intact Extremities: No Clubbing, No Cyanosis, No Edema, Normal Pulses, No Tenderness/ Swelling Current Medications: Current Medications Sig/Dalia Start time Last Medication Dose Route Stop Time Status Admin Acetaminophen 650 MG Q4P PRN 12/07 1500 AC PO Acetaminophen 650 MG ONCE PRN 12/05 1800 AC 12/08 PO 1955 Docusate Sodium 100 MG DAILY 12/05 0900 AC 12/08 PO 075 Furosemide 20 MG DAILY 12/10 0900 AC IV Furosemide 20 MG ONCE ONE 12/09 1530 DC IV 12/09 1531 Heparin Sodium 6,100 UNIT ONCE ONE 12/08 2145 DC 12/09 (Porcine) IV 12/08 2146 0031 Heparin Sodium 0 .STK-MED ONE 12/08 2010 DC (Porcine) .ROUTE Heparin Sodium 0 .STK-MED ONE 12/08 2009 DC (Porcine) .ROUTE Heparin Sodium 25,000 UNIT Q24H 12/07 1500 AC 12/08 (Porcine) IV 1300 Sodium Chloride 500 ML Hydrocodone Bitart/ 1 TAB Q4P PRN 12/08 1730 AC 12/09 Acetaminophen PO 0606 Hydrocodone Bitart/ 1 TAB Q6P PRN 12/07 2115 DC 12/08 Acetaminophen PO 1656 Insulin Aspart 0 TIDAC 12/03 1700 AC 12/06 SC 1725 Levetiracetam 500 MG Q12 12/02 2100 AC 12/09 N/A 1 UNIT IV 0754 Lorazepam 1 MG Q6 PRN 12/04 1430 AC 12/08 PO 1955 Magnesium Chloride 64 MG BID 12/05 2100 AC PO Metoprolol Tartrate 37.5 MG BID 12/07 2100 AC 12/09 PO 0604 Ondansetron HCl 4 MG Q6P PRN 12/02 1730 AC IV Oxycodone HCl 10 MG Q6P PRN 12/03 1230 AC 12/04 PO 1931 Pantoprazole Sodium 40 MG BID 12/02 2100 AC 12/09 IV 0755 Senna/Docusate Sodium 1 TAB BID 12/04 2100 AC 12/07 PO 0834 Sodium Bicarbonate 50 MEQ Q20H 12/08 0830 DC 12/09 Dextrose/Sodium 1,000 ML IV 0600 Chloride Last 24 Hrs of Lab/Donell Results Last 24 Hrs of Labs/Mics: Laboratory Tests 12/09/17 1045: APTT 54 H 12/09/17 0230: APTT > 120 *H 12/08/17 1800: APTT 36 Assessment/Plan Assessment: 77-year-old male with PMH HTN, DM 2, HLD, CAD, post CABG 2002, prostate cancer S/P chemo and radiotherapy , colon cancer in 2010 with colonoscopy in 08/2017, with multiple surgeries came with history of GTCS. Workup revealed uremia with obstructive uropathy, AASHISH. old records also show para-aortic lymphadenopathy on a CT from November 2016, CXR from 08/2017 shows no evidence of nodules or metastases. 1) ACute on chronic kidney injury 2) ACute Left sided Hydroureteronephrosis- 3) New onset seizure- 4)Atrial fibrillation -HR overnight 140 - 150 5) Upper GI bleed-- coffee ground emesis- 7)Metastatic disease with unknown primary malignancy plan- Cautious use of IV fluids Control patient's heart rate, target heart rate less than 110 Given metoprolol Monitor vitals Continue pain medications and pain management as per palliative care Continue heparin drip IV Continue Keppra for seizures Monitor input output Patient earlier complained of chest pain, EKG was done, chest x-ray was done Chest x-ray showed interval reaccumulation of small volume of pleural fluid on the right side, and findings of previous chest x-ray. Suspicious pulmonary edema. Echo shows EF of 20-25%, previous echo at [place] showed 45-50% on June 2017 Problem List: 1. AASHISH (acute kidney injury) 2. Atrial fibrillation and flutter 3. Metastasis Pain Ratin Pain Location: Chest Pain Goal: Remain pain free Pain Plan: Vicodin, Tylenol Tomorrow's Labs & Rationales: None
--- NOTE | 2017-12-09 09:34 | PN- Cardiology ---
Subjective Subjective: Patient seen at bedside. Complains of retrosternal chest pressure that started "a little while ago." He denies dyspnea, palpitations, lightheadedness. He is not sure if this pain is exacerbated by deep respiration. Objective Vital Signs and I&Os Vital Signs Date Time Temp Pulse Resp B/P B/P Pulse O2 O2 Flow FiO2 Mean Ox Delivery Rate 12/09 0703 97.5 120 18 112/60 91 Nasal Cannula 12/09 0604 141 112/60 12/08 2215 97.0 98 18 96/58 98 Nasal Cannula 12/08 2107 Nasal 2.0L Cannula 12/08 1753 142 110/70 12/08 1447 97.3 110 18 94/62 99 Nasal Cannula Intake & Output 12/09 1600 12/09 0812/09 0000 12/08 1600 12/08 0000 Intake Total 507.2 280 850 500 500 Output Total 350 300 400 300 Balance 157.2 280 550 100 200 Intake, IV 507.2 280 600 500 500 Intake, Oral 250 Output, Urine 350 300 400 300 Patient 86.268 kg 81.845 kg Weight Weight Bed scale Bed scale Measurement Method Physical Exam: General: Lying in bed, appears a little lethargic HEENT: NCAT, +JVD Heart: s1s2 +S3, irregular rhythm, no murmurs Lungs: Fair air entry bilaterally, decreased breath sounds left base Abd: soft, nt Ext: Trace bilateral lower extremity pitting edema Current Medications: Current Medications Sig/Dalia Start time Last Medication Dose Route Stop Time Status Admin Acetaminophen 650 MG Q4P PRN 12/07 1500 AC PO Acetaminophen 650 MG ONCE PRN 12/05 1800 AC 12/08 PO 1955 Docusate Sodium 100 MG DAILY 12/05 0900 AC 12/08 PO 0759 Heparin Sodium 6,100 UNIT ONCE ONE 12/08 2145 DC 12/09 (Porcine) IV 12/08 214 0031 Heparin Sodium 0 .STK-MED ONE 12/08 2010 DC (Porcine) .ROUTE Heparin Sodium 0 .STK-MED ONE 12/08 2009 DC (Porcine) .ROUTE Heparin Sodium 25,000 UNIT Q24H 12/07 1500 AC 12/08 (Porcine) IV 1300 Sodium Chloride 500 ML Hydrocodone Bitart/ 1 TAB Q4P PRN 12/08 1730 AC 12/09 Acetaminophen PO 0606 Hydrocodone Bitart/ 1 TAB Q6P PRN 12/07 2115 DC 12/08 Acetaminophen PO 1656 Insulin Aspart 0 TIDAC 12/03 1700 AC 12/06 SC 1725 Levetiracetam 500 MG Q12 12/02 2100 AC 12/09 N/A 1 UNIT IV 0754 Lorazepam 1 MG Q6 PRN 12/04 1430 AC 12/08 PO 1955 Magnesium Chloride 64 MG BID 12/05 2100 AC PO Magnesium Sulfate 1 GM ONCE ONE 12/08 0845 DC 12/08 Dextrose/Water 100 ML IV 12/08 1244 0955 Metoprolol Tartrate 37.5 MG BID 12/07 2099 AC 12/09 PO 0604 Ondansetron HCl 4 MG Q6P PRN 12/02 1730 AC IV Oxycodone HCl 10 MG Q6P PRN 12/03 1230 AC 12/04 PO 1931 Pantoprazole Sodium 40 MG BID 12/02 2100 AC 12/09 IV 0755 Senna/Docusate Sodium 1 TAB BID 12/04 2100 AC 12/07 PO 0834 Sodium Bicarbonate 50 MEQ Q20H 12/08 0830 AC 12/09 Dextrose/Sodium 1,000 ML IV 0600 Chloride Results Last 48 Hrs of Labs/Mics: Laboratory Tests 12/09/17 0230: APTT > 120 *H 12/08/17 1800: APTT 36 12/08/17 0945: APTT 102 *H 12/08/17 0611: Anion Gap 10, Estimated GFR 18 L, BUN/Creatinine Ratio 18.5, Calcium 7.6 L, Magnesium 1.6, Lactate Dehydrogenase 783 H, CBC w Diff NO MAN DIFF REQ, RBC 2.97 L, MCV 92.9, MCH 31.0, MCHC 33.3, RDW 16.8 H, MPV 7.3 L, Gran % 86.4 H, Lymphocytes % 6.4 L, Monocytes % 5.6, Eosinophils % 1.5, Basophils % 0.1, Absolute Granulocytes 7.8 H, Absolute Lymphocytes 0.6 L, Absolute Monocytes 0.5, Absolute Eosinophils 0.1, Absolute Basophils 0 12/07/17 2122: APTT 78 H 12/07/17 1225: Fluid WBC 101 H, Fld Mesothelial Cells 92, Fld Total RBCs Counted 41 H 12/07/17 1225: Lymphocytes 4, % Normal PMNs 4, Fluid Glucose 157, Fluid Total Protein < 2.0, Fluid Albumin < 1.0, Fluid LDH 235, Fluid Amylase < 30 Recent Imaging Studies: Telemetry personally reviewed: Currently in atrial flutter with variable block in the 90s bpm Assessment/Plan Assessment/Plan 1. coronary artery disease status post CABG (last cath May 2014 showed patent MORTON to LAD, patent SVG to OM, HEEL SEAT FITTER MACHINE of SVG to LPDA) 2. ischemic cardiomyopathy/HFrEF (last echo 06/30/2017 LVEF 45-50%); TTE this admission showing LVEF 20-25%, possibly tachycardia induced cardiomyopathy versus progression of ischemic cardiomyopathy 3. PAD status post femoral stenting 4. hypertension 5. hyperlipidemia 6. diabetes 7. spinal stenosis 8. arthritis 9. prostate cancer s/p chemotherapy and sead implants, as per CT chest/abdomen/ pelvis current concern for metastatic disease 10. Possible seizure 11. Newly diagnosed atrial fibrillation/flutter, currently on heparin drip 12. Acute renal failure 13. pleural effusions s/p R thoracocentesis Patient is complaining of chest pressure this morning. This may be due to CHF, coronary ischemia, noncardiac etiology. Patient is receiving IVF and has a very low LVEF. He appears to have some JVD and an S3 today. Recommend caution with IVF, as patient could decompensate in the setting of IV fluid resuscitation and severe systolic dysfunction. Given patient's poor prognosis, would recommend conservative management. An ECG and a chest x-ray would be reasonable. Would also recommend comfort care measures and analgesia. Continue current cardiac medical regimen. Continue telemetry? Yes
[2017-12-09 11:31] LABS: PTT 54 SEC (25-37)
--- NOTE | 2017-12-09 12:09 | RADIOLOGY REPORT ---
EXAMINATION: XR PORTABLE CHEST CLINICAL INFORMATION: Malignant effusion status post right thoracentesis. Evaluate for reaccumulation of fluid. COMPARISON: Several prior chest x-rays, most recent of which is dated 12/07/2017. TECHNIQUE: Portable AP semiupright view of the chest was obtained. FINDINGS: Multiple EKG leads overlie the chest. The patient is status post median sternotomy and CABG surgery. The cardiomediastinal silhouette is borderline enlarged, unchanged. There is increasing enlargement of the central pulmonary vessels and perihilar opacities, suspicious for mild pulmonary edema. Superimposed bibasilar airspace opacity is also seen, slightly progressive compared to the prior study. Small bilateral pleural effusions are seen, new on the right side and similar to the prior exam on the left side. No pneumothorax is noted. Bony structures are unremarkable. IMPRESSION: 1. Interval reaccumulation of small volume of pleural fluid on the right side. 2. No significant change in left-sided small pleural effusion. 3. Increasing bilateral pulmonary opacities, suspicious for pulmonary edema superimposed upon bilateral lower lobe consolidation.
[2017-12-09 14:10] VITALS: BP 110/64
[2017-12-09 21:17] LABS: PTT 48 SEC (25-37)
[2017-12-09 22:00] VITALS: BP 114/64
[2017-12-10 04:34] LABS: PTT 66 SEC (25-37)
--- NOTE | 2017-12-10 05:24 | Patient Discharge Instructions ---
Discharge Instructions General Discharge Information You were seen/treated for: seizures, obstructive uropathy, acute kidney injury, atrial fibrillation, metatstatic disease Acute Coronary Syndrome Inclusion Criteria At DC or during hospital stay patient has or had the following: ACS DIAGNOSIS No Discharge Core Measures Meds if any: Prescribed or Continued at Discharge Meds if any: NOT Prescribed or Continued at Discharge Congestive Heart Failure Inclusion Criteria At DC or during hospital stay patient has or had the following: CHF DIAGNOSIS No Discharge Core Measures Meds if any: Prescribed or Continued at Discharge Meds if any: NOT Prescribed or Continued at Discharge Cerebrovascular accident Inclusion Criteria At DC or during hospital stay patient has or had the following: CVA/TIA Diagnosis No Discharge Core Measures Meds if any: Prescribed or Continued at Discharge Meds if any: NOT Prescribed or Continued at Discharge Venous thromboembolism Inclusion Criteria VTE Diagnosis No VTE Type NONE VTE Confirmed by (Test) NONE Discharge Core Measures - Per Current guidelines, there needs to be overlap - treatment for the first 5 days of Warfarin therapy. - If discharged on Warfarin prior to 5 days of - overlap therapy, the patient will need to be - assessed for post discharge needs including - *Post discharge parental anticoagulation - *Warfarin and/or parental anticoagulation education - *Follow up date to check INR post discharge At least 5 days overlap therapy as Inpatient No Meds if any: Prescribed or Continued at Discharge Note: Overlap Therapy is Warfarin and Anticoagulant Meds if any: NOT Prescribed or Continued at Discharge
[2017-12-10 07:33] VITALS: BP 110/66
--- NOTE | 2017-12-10 07:44 | PN- Housestaff ---
Subjective Follow-up For: Colon cancer, prostate cancer, atrial fibrillation, ureteral obstruction, acute kidney injury. Complaints: pt unable to provide hx Tele-Events Since Last Visit: in Atrial fibrillation , HR 110- 130 Subjective: Patient was deep asleep he was examined lying in bed. He was arousable. He said that he had pain. Could not answer specific questions as he was still drowsy. Review of Systems Constitutional: Reports: see HPI. Objective Last 24 Hrs of Vital Signs/I&O Vital Signs Date Time Temp Pulse Resp B/P B/P Pulse O2 O2 Flow FiO2 Mean Ox Delivery Rate 12/10 0733 98.9 104 18 110/66 97 Nasal Cannula 12/09 2200 97.8 74 22 114/64 93 Nasal 2.0L Cannula 12/09 1949 140 114/64 12/09 1410 96.9 140 20 110/64 99 Nasal 2.0L Cannula 12/09 08 97 Nasal 2.0L Cannula Intake & Output 12/10 0800 12/10 0000 12/09 1600 Intake Total 210 248 500 Output Total 450 300 Balance -240 -52 500 Intake, IV 160 128 480 Intake, Oral 50 120 20 Output, Urine 450 300 Physical Exam General Appearance: Alert, Mild Distress Cardiovascular: Normal S1, Normal S2 Lungs: decreased breath sounds Abdomen: Soft, tender Current Medications: Current Medications Sig/Dalia Start time Last Medication Dose Route Stop Time Status Admin Acetaminophen 650 MG Q4P PRN 12/07 1500 AC PO Acetaminophen 650 MG ONCE PRN 12/05 1800 AC 12/08 PO 1955 Docusate Sodium 100 MG DAILY 12/05 0900 AC 12/08 PO 0759 Furosemide 20 MG DAILY 12/10 0900 AC IV Furosemide 0 .STK-MED ONE 12/09 1610 DC IV Furosemide 20 MG ONCE ONE 12/09 1530 DC 12/09 IV 12/09 1531 1615 Heparin Sodium 25,000 UNIT Q24H 12/07 1500 AC 12/09 (Porcine) IV 1622 Sodium Chloride 500 ML Hydrocodone Bitart/ 1 TAB Q4P PRN 12/08 1730 AC 12/10 Acetaminophen PO 0459 Insulin Aspart 0 TIDAC 12/03 1700 AC 12/06 SC 1725 Levetiracetam 500 MG Q12 12/02 2100 AC 12/09 N/A 1 UNIT IV 195 Lorazepam 1 MG Q6 PRN 08/10 1430 AC 12/09 PO 2027 Magnesium Chloride 64 MG BID 12/05 2100 AC PO Metoprolol Tartrate 37.5 MG BID 12/07 2099 AC 12/09 PO 194 Ondansetron HCl 4 MG Q6P PRN 12/02 1730 AC IV Oxycodone HCl 10 MG Q6P PRN 12/03 1230 AC 12/04 PO 193 Pantoprazole Sodium 40 MG BID 12/02 2099 AC 12/09 IV 195 Senna/Docusate Sodium 1 TAB BID 12/04 2099 AC 12/07 PO 34 Sodium Bicarbonate 50 MEQ Q20H 12/08 829 DC 12/09 Dextrose/Sodium 1,000 ML IV 0600 Chloride Last 24 Hrs of Lab/Donell Results Last 24 Hrs of Labs/Mics: Laboratory Tests 12/10/17 0400: APTT 66 H 12/09/172035: APTT 48 H 12/09/17 1045: APTT 54 H Assessment/Plan Assessment: 77-year-old male patient with a past medical history of HTN, DM 2, HLD, CAD, post CABG in 2002, prostate cancer for 30 years status post chemo and radiation therapy, history of colon cancer status post laparoscopic sigmoid resection [place] [address] Honeycutt, had last colonoscopy 2017. Multiple arterial problems like multiple disc repairs in L4-L5, bilateral knee arthroplasty. Patient was brought to the hospital ER with an episode of new onset seizure that lasted for 30 seconds, and was treated with Keppra at the ER and was started on heparin drip. Following heparin drip the patient had coffee ground vomiting. Heparin was discontinued temporarily following the GI bleed episode. Patient was hypotensive and hemoglobin was dropping. Hence 1 leuko-reduced PRBC was transfused overnight. Sequently the patient was found to be oliguric, initially excreting less than 200 mL of urine per day. Urology and nephrology were consulted and patient was found to have AASHISH secondary to severe dehydration and urological of obstruction. Input output was monitored regularly. He was also in atrial fibrillation with rapid ventricular rate. Patient was started on beta -blockers metoprolol low doses, and subsequently increased. Initially heparin was held for risk of GI bleed. Eventually heparin was restarted as IV drip. Echocardiogram showed 20-25% ejection fraction. Patient also had a pleural effusion bilaterally, decision was taken to Tap the right side initially, cytology post thoracentesis did not show any evidence of metastasis. However the CT showed masses surrounding the aorta and inferior vena cava. During the hospital course palliative was consulted and pain management treatment was started. Problem list 1) ACute on chronic kidney injury 2) ACute Left sided Hydroureteronephrosis- 3) New onset seizure- 4)Atrial fibrillation -HR overnight 140 - 150 5) Upper GI bleed-- coffee ground emesis- 7)Metastatic disease with unknown primary malignancy plan- Cautious use of IV fluids Control patient's heart rate with metoprolol Monitor vitals Monitor input output Pain management Continue Keppra for seizures Further care was discussed with the patient's family, who planned on hospice care for the patient. Measures are being taken and preparations are being made to convert the patient into hospice care in order to respect patient's family wishes. As per Patients and family wishes, Telemetry was discontinued Problem List: 1. Atrial fibrillation 2. Metastasis 3. Tonic clonic seizures 4. AASHISH (acute kidney injury) Pain Ratin Pain Location: back and chest Pain Goal: Pain 4 or less Pain Plan: vicodin, tyelenol Tomorrow's Labs & Rationales: none Pain Plan: vicodin, tyelenol
--- NOTE | 2017-12-10 09:33 | PN- Cardiology ---
Subjective Subjective: Telemetry atrial fibrillation with ventricular rate around 140. Patient looks poorly. He complains of pain in the belly. He is resting but can be aroused. Objective Vital Signs and I&Os Vital Signs Date Time Temp Pulse Resp B/P B/P Pulse O2 O2 Flow FiO2 Mean Ox Delivery Rate 12/10 0840 144 120/74 12/10 0800 95 Nasal 2.0L Cannula 12/10 0733 98.9 104 18 110/66 97 Nasal Cannula 12/09 2200 97.8 74 22 114/64 93 Nasal 2.0L Cannula 12/09 1949 140 114/64 12/09 1410 96.9 140 20 110/64 99 Nasal 2.0L Cannula Intake & Output 12/10 1600 12/10 0800 12/10 0000 12/09 1600 12/09 0812/09 0000 Intake Total 210 248 500 507.2 280 Output Total 450 300 350 Balance -240 -52 500 157.2 280 Intake, IV 160 128 480 507.2 280 Intake, Oral 50 120 20 Output, Urine 450 300 350 Patient 190 lb Weight Weight Bed scale Measurement Method Physical Exam: On general exam patient appeared cachectic looks poorly Head normocephalic atraumatic Eyes sclera anicteric conjunctiva showed pallor extraocular muscles were normal Neck mild jugular venous distention Chest lungs reveal a few scattered wheezes Heart irregular rhythm with a ventricular rate around 140 Abdomen soft no organomegaly extremities no edema neurological not evaluated. Current Medications: Current Medications Sig/Dalia Start time Last Medication Dose Route Stop Time Status Admin Acetaminophen 650 MG Q4P PRN 12/07 1500 AC PO Acetaminophen 650 MG ONCE PRN 12/05 1800 AC 12/08 PO 1955 Docusate Sodium 100 MG DAILY 12/05 0900 AC 12/08 PO 0759 Furosemide 20 MG DAILY 12/10 0900 AC 12/10 IV 0840 Furosemide 0 .STK-MED ONE 12/09 1610 DC IV Furosemide 20 MG ONCE ONE 12/09 1530 DC 12/09 IV 12/09 1531 1615 Heparin Sodium 25,000 UNIT Q24H 12/07 1500 AC 12/09 (Porcine) IV 1622 Sodium Chloride 500 ML Hydrocodone Bitart/ 1 TAB Q4P PRN 12/08 1730 AC 12/10 Acetaminophen PO 0459 Insulin Aspart 0 TIDAC 12/03 1700 AC 12/06 SC 1725 Levetiracetam 500 MG Q12 08/08 2100 AC 12/10 N/A 1 UNIT IV 0839 Lorazepam 1 MG Q6 PRN 12/04 1430 AC 12/09 PO 2028 Magnesium Chloride 64 MG BID 12/05 2100 AC PO Metoprolol Tartrate 50 MG BID 12/10 2100 UNVr PO Metoprolol Tartrate 37.5 MG BID 12/07 2100 DC 12/10 PO 0840 Ondansetron HCl 4 MG Q6P PRN 12/02 1730 AC IV Oxycodone HCl 10 MG Q6P PRN 12/03 1230 AC 12/04 PO 1931 Pantoprazole Sodium 40 MG BID 12/02 2100 AC 12/10 IV 0840 Senna/Docusate Sodium 1 TAB BID 12/04 2100 AC 12/07 PO 0834 Sodium Bicarbonate 50 MEQ Q20H 12/08 0830 DC 12/09 Dextrose/Sodium 1,000 ML IV 0600 Chloride Results Last 48 Hrs of Labs/Mics: Laboratory Tests 12/10/17 0400: APTT 66 H 12/09/17 2036: APTT 48 H 12/09/17 1045: APTT 54 H 12/09/17 0230: APTT > 120 *H 12/08/17 1800: APTT 36 12/08/17 0945: APTT 102 *H Recent Imaging Studies: Chest x-ray 1. Interval reaccumulation of small volume of pleural fluid on the right side. 2. No significant change in left-sided small pleural effusion. 3. Increasing bilateral pulmonary opacities, suspicious for pulmonary edema superimposed upon bilateral lower lobe consolidation. Assessment/Plan Assessment/Plan In summary this 77-year-old gentleman has a following problems 1. 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 ischemic cardiomyopathy/HFrEF (last echo 06/30/2017 LVEF 45-50%); TTE this admission showing LVEF 20-25%, possibly tachycardia induced cardiomyopathy versus progression of ischemic cardiomyopathy 3. PAD status post femoral stenting 4. hypertension 5. hyperlipidemia 6. diabetes 7. spinal stenosis 8. arthritis 9. prostate cancer s/p chemotherapy and sead implants, as per CT chest/abdomen/ pelvis current concern for metastatic disease 10. Possible seizure 11. Newly diagnosed atrial fibrillation/flutter, currently on heparin drip 12. Acute renal failure 13. pleural effusions s/p R thoracocentesis Chest x-ray confirms mild pulmonary edema probably due to volume overload superimposed on cardiomyopathy. Patient looks poorly. Family has agreed to hospice placement. If that is the case I would suggest to be taken off intravenous heparin and monitoring discontinued and moved to hospice flow. Otherwise aggressive reduction of ventricular rate possibly with amiodarone may be required but hopefully the family will make him hospice and conservative treatment can be followed. Continue telemetry? No
--- NOTE | 2017-12-10 11:01 | PN- Att Addend ---
Attending Addendum Attending Brief Note 77M PMH T2DM, HTN, HLD, CAD s/p [place] and CABG 2002, history of prostate cancer s/p chemotherapy and radioactive seeding, history of colon cancer s/p sigmoidectomy 2010, last colonoscopy 05/2017 was normal, history of multiple back surgeries, currently mostly wheelchair bound due to back pain and deconditioning, presented initially with weakness, lethargy, visual hallucinations, and witnessed tonic- clonic seizure at home. Workup revealed uremia, obstructive uropathy, and AASHISH, which may be causing his encephalopathy and seizure. He also has extensive retroperitoneal metastatic disease and lung metastases with unknown primary malignancy. CT and MRI of the head were negative. Patient was found to be in atrial fibrillation but this is not new and is present on old records. Old records also show para-aortic lymphadenopathy on a CT from November 2016, CXR from 08/2017 shows no evidence of nodules or metastases. Right thoracentesis performed 12/07 removing 1.3L of serous fluid that appears to be exudative with pleural LDH 235. Dr. Barnes of cardiology spoke with family and heparin drip will be discharged. 1. Uremic encephalopathy 2. 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 Metastatic disease with unknown primary malignancy 4. Lung metastases with bilateral malignant effusions 5. AASHISH secondary to obstructive uropathy and dehydration 6. Chronic atrial fibrillation 7. Deconditioning 8. Moderate protein calorie malnutrition Plan - Continue telemetry - Await pathology - Follow nephrology, urology, palliative care, and cardiology recommendations - Monitor urine output - Continue Keppra - Avoid opioids if possible, as it causes delirium in patient - Regular diet - Continue home medications - DVT PPx with ALPS
[2017-12-10 14:19] VITALS: BP 122/68
[2017-12-10 17:06] VITALS: BP 118/80
== END 2017-12-10 19:27 | disposition hospice, home (50) | DRG 682 ==
LOC: ERH 11:42 → 1NO 14:47 → ERHI 14:47 → ENRESERV 14:58 → CANRESERV 18:16 → ENTRNSPT 18:20 → EDTRNSPTSTS 18:25 → EDTRNSPT 18:25 → 1NO 18:37 → CMPTRNSPT 18:39 → 1NO 12-04 21:36 → ENTRNSPT 12-10 16:24 → EDTRNSPTSTS 12-10 16:48 → EDTRNSPT 12-10 16:48 → 2NA 12-10 16:53 → CMPTRNSPT 12-10 16:59 → 2NA 12-10 19:27
PROVIDERS: General Practice; Internal Medicine; Internal Medicine Adolescent Medicine; Physical Medicine & Rehabilitation Pain Medicine; Physician Assistant; Preventive Medicine Public Health & General Preventive Medicine; Student in an Organized Health Care Education/Training Program
PROC: 0W993ZZ Drainage of Right Pleural Cavity, Percutaneous Approach (ICD-10-PCS; principal; 2017-12-07)
DX: N17.9 Acute kidney failure, unspecified (principal); G93.49 Other encephalopathy; C79.9 Secondary malignant neoplasm of unspecified site; I50.22 Chronic systolic (congestive) heart failure; I42.9 Cardiomyopathy, unspecified; G40.89 Other seizures; E44.0 Moderate protein-calorie malnutrition; J91.8 Pleural effusion in other conditions classified elsewhere; E87.2 Acidosis; I48.92 Unspecified atrial flutter; C78.6 Secondary malignant neoplasm of retroperitoneum and peritoneum; C78.00 Secondary malignant neoplasm of unspecified lung; J91.0 Malignant pleural effusion; N13.1 Hydronephrosis with ureteral stricture, not elsewhere classified; E86.0 Dehydration; Z68.21 Body mass index [BMI] 21.0-21.9, adult; I11.0 Hypertensive heart disease with heart failure; I48.91 Unspecified atrial fibrillation; E11.9 Type 2 diabetes mellitus without complications; Z79.84 Long term (current) use of oral hypoglycemic drugs; I25.5 Ischemic cardiomyopathy; I73.9 Peripheral vascular disease, unspecified; N13.9 Obstructive and reflux uropathy, unspecified; I25.10 Atherosclerotic heart disease of native coronary artery without angina pectoris; Z95.1 Presence of aortocoronary bypass graft; I25.2 Old myocardial infarction
CPT/HCPCS: 1NP; 70551; 87075; 36592; 71045; 74176; 80307; 81001; 82436; 86920; 87040; 87086; 88305; 93005; 93010; 93306; 95816; 96360; 96361; 99291; J1644; J1815; J1940; J1953; J2001; J2405; J3490; J7040; J7042; P9016

== ENCOUNTER 2017-12-10 19:28 | Inpatient (IN) | payer OTHER ==
[2017-12-11 06:19] VITALS: BP 102/56
--- NOTE | 2017-12-11 13:26 | History & Physical ---
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
--- NOTE | 2017-12-11 14:58 | PN- Hospice ---
Subjective Subjective: Family at bedside. Pt is lethargic, complains of pain in legs and occasionally some nausea. Pt. last had vicodin for pain at 11pm and had not complained of pain until now per nursing. He has not been taking anything by mouth today. Had his vicodin crushed last night in applesauce. Review of Systems Constitutional: Reports: see HPI. Objective Last 24 Hrs of Vital Signs/I&O Vital Signs Date Time Temp Pulse Resp B/P B/P Pulse O2 O2 Flow FiO2 Mean Ox Delivery Rate 12/11 0800 Nasal 2.0L Cannula 12/11 0619 97.7 101 20 102/56 90 Nasal Cannula 12/11 0000 Nasal 2.0L Cannula Intake & Output 12/11 1600 12/11 0800 12/11 0000 Intake Total 0 0 Output Total 100 250 400 Balance -100 -250 -400 Intake, Oral 0 0 Output, Urine 100 250 400 Physical Exam General Appearance: moderate distress Head: atraumatic Ears, Nose, Throat: moist mucus membranes Respiratory: no respiratory distress, decreased breath sounds, O2 2lnp Cardiovascular: tachycardia, irregular Abdomen: soft, non-tender Extremities: bipedal edema, no mottling Current Medications: Current Medications Sig/Dalia Start time Last Medication Dose Route Stop Time Status Admin Acetaminophen 650 MG Q4P PRN 12/11 1330 AC MS Acetaminophen 650 MG Q4P PRN 12/10 2130 DC PO Artificial Tears 2 GTT Q2P PRN 12/10 2130 AC OU Bisacodyl 10 MG DAILY NEEDED PRN 12/10 2130 AC MS Glycerin 2 SPRAY Q4P PRN 12/10 2130 AC PO Glycerin/Mineral Oil 1 KHARI Q8P PRN 12/10 2130 AC 12/10 TOP 2323 Glycopyrrolate 400 MCG Q4P PRN 12/11 1330 AC IV Hydrocodone Bitart/ 1 TAB ONCE ONE 12/10 2215 DC 12/10 Acetaminophen PO 12/10 2216 2314 Hydrocodone Bitart/ 2 TAB Q12P PRN 12/10 221 DC Acetaminophen PO Lorazepam 2 MG [id number] PRN 12/11 1345 AC IV Lorazepam 0 .STK-MED ONE 12/11 1340 DC .ROUTE Lorazepam 0.5 MG Q4P PRN 12/11 1330 AC 12/11 IV 1343 Lorazepam 2 MG Q15 PRN 12/10 2215 DC PO Lorazepam 0.5 MG Q15 PRN 12/10 2215 DC 12/10 PO 12/17 2214 2314 Morphine Sulfate 0 .STK-MED ONE 12/11 1339 DC .ROUTE Morphine Sulfate 2 MG Q2P PRN 12/11 1330 AC IV Morphine Sulfate 2 MG Q6 12/11 1321 AC 12/11 IV 1343 Morphine Sulfate 5 MG Q2P PRN 12/10 2215 DC IV Morphine Sulfate 10 MG Q4P PRN 12/10 2215 DC IV Polyethylene Glycol 17 GM DAILY 12/11 0900 DC PO Scopolamine HBr 1 PAT Q72 12/10 2200 AC 12/10 TOP 2314 Senna/Docusate Sodium 1 TAB BID 12/10 2129 DC PO Assessment/Plan Hospice Assessment/Recommendations: Mr. Singh is a 77 y.o. male with PMHx of DMT2, HTN, CAD, h/o prostate and colon ca now with retroperitoneal and lung metastatic disease with unknown primary, AASHISH secondary to obstructive uropathy and dehydration, new AF and mild pulmonary edema. Pt. was to go home with home hospice however, was placed on hospice service last evening due to continued deterioration requiring symptom management. Discontinue oral medications. For pain, schedule morphine 2 mg IV every 6 hrs and also every 2 hours as needed For anxiety, lorazepam 0.5mg IV every 4 hrs as needed For seizures (as pt may have had seizures at admission), lorazepam 2mg IV every 20 min x 2, call MD if second dose needed (then can switch to rectal diazepam) For secretions, cont. 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 Metastasis 2. Hospice care 3. Atrial fibrillation 4. AASHISH (acute kidney injury)
--- NOTE | 2017-12-12 14:45 | PN- Hospice ---
Subjective Subjective: unable to obtain due to medical condition. Objective Last 24 Hrs of Vital Signs/I&O Vital Signs Date Time Temp Pulse Resp B/P B/P Pulse O2 O2 Flow FiO2 Mean Ox Delivery Rate 12/12 1125 Nasal 2.0L Cannula 12/12 0800 Nasal 2.0L Cannula 12/12 0000 Nasal 2.0L Cannula Intake & Output 12/12 1600 12/12 0800 12/12 0000 Intake Total Output Total 200 200 Balance -200 -200 Output, Urine 200 200 Physical Exam: Pt appears to be restful and breathing is regular with some upper airway sounds. Has pelletier catheter. Lower extremities has 1+ edema b/l . CVS- s1 s2 regular and no murmur appreciated. pt opening eyes spontaneously and moving his eyes and head at times. Assessment/Plan Hospice Assessment/Recommendations: 77 y.o. male with PMHx of DMT2, HTN, CAD, h/o prostate and colon ca now with retroperitoneal and lung metastatic disease with unknown primary, AASHISH secondary to obstructive uropathy and dehydration, new AF and mild pulmonary edema. Pt. was to go home with home hospice however, was placed on hospice service last evening due to continued deterioration requiring symptom management. dc scheduled morphine and cont on prn morphine and ativan. pt on scopolamine patch for increased secretions.cont on that for now . cont prn nausea meds. dw/ pts family at bedside the care plan.
[2017-12-13 06:46] VITALS: BP 100/50
--- NOTE | 2017-12-13 15:53 | PN- Hospice ---
Subjective Subjective: unable to obtain due to mental status. Objective Last 24 Hrs of Vital Signs/I&O Vital Signs Date Time Temp Pulse Resp B/P B/P Pulse O2 O2 Flow FiO2 Mean Ox Delivery Rate 12/13 0800 Nasal 2.0L Cannula 12/13 0646 98.0 124 20 100/50 98 Nasal 2.0L Cannula 12/13 0000 Nasal 2.0L Cannula 12/12 1600 Nasal 2.0L Cannula Intake & Output 12/13 1600 12/13 0800 12/13 0000 Intake Total 0 Output Total 100 100 175 Balance -100 -100 -175 Intake, IV 0 Intake, Oral 0 Number 0 Bowel Movements Output, Urine 100 100 175 Pt appears to be restful and breathing is regular with some upper airway sounds. Has pelletier catheter. Lower extremities has 1+ edema b/l . CVS- s1 s2 regular and no murmur appreciated. Assessment/Plan Hospice Assessment/Recommendations: 77 y.o. male with PMHx of DMT2, HTN, CAD, h/o prostate and colon ca now with retroperitoneal and lung metastatic disease with unknown primary, AASHISH secondary to obstructive uropathy and dehydration, new AF and mild pulmonary edema. Pt. was to go home with home hospice however, was placed on hospice service last evening due to continued deterioration requiring symptom management. dced scheduled morphine and cont on prn morphine and ativan. pt on scopolamine patch for increased secretions.cont on that for now . cont prn nausea meds.
[2017-12-14 06:27] VITALS: BP 90/60
--- NOTE | 2017-12-14 14:14 | PN- Hospice ---
Subjective Subjective: Family at bedside. Pt. lethargic and moans intermittently. Over weekend scheduled morphine was discontinued as pt had been refusing and agreed to as needed dosing. He was receiving 2 doses daily and no ativan. Today he has been requiring morphine every 2-3 hours. Last dose was 30 min ago, with ativan, and does not appear comfortable. He has had no oral intake since last week, minimal urine output, and now with low grade fever. Review of Systems Constitutional: Reports: see HPI. Objective Last 24 Hrs of Vital Signs/I&O Vital Signs Date Time Temp Pulse Resp B/P B/P Pulse O2 O2 Flow FiO2 Mean Ox Delivery Rate 12/14 1006 100.3 12/14 08 100.2 12/14 0627 100.2 123 16 90/60 87 Nasal 2.0L Cannula 12/14 0000 Nasal 2.0L Cannula 12/13 1600 Nasal 2.0L Cannula Intake & Output 12/14 1600 12/14 0800 12/14 0000 Intake Total 0 0 Output Total 0 50 Balance 0 -50 Intake, Oral 0 0 Output, Urine 0 50 Patient 149 lb Weight Physical Exam General Appearance: mild distress Head: atraumatic Ears, Nose, Throat: oral mucosa dry Respiratory: mild bilateral rales anteriorly, 02 2lnp, unlabored Cardiovascular: tachycardia Extremities: bipedal edema, no mottling Current Medications: Current Medications Sig/Dalia Start time Last Medication Dose Route Stop Time Status Admin Acetaminophen 1,000 MG Q6P PRN 12/14 0815 AC 12/14 N/A 1 UNIT IV 0820 Acetaminophen 0 .STK-MED ONE 12/14 0815 DC IV Acetaminophen 650 MG Q4P PRN 12/11 1330 DC WI Artificial Tears 2 GTT Q2P PRN 12/10 2130 AC OU Bisacodyl 10 MG DAILY NEEDED PRN 12/10 2130 AC WI Glycerin 2 SPRAY Q4P PRN 12/10 2130 AC PO Glycerin/Mineral Oil 1 KHARI Q8P PRN 12/10 2130 AC 12/10 TOP 2323 Glycopyrrolate 400 MCG Q4P PRN 12/11 1330 AC IV Lorazepam 0.5 MG Q8 12/14 1400 UNVr IV Lorazepam 2 MG [id number] PRN 12/11 1345 AC IV Lorazepam 0.5 MG Q4P PRN 12/11 1330 AC 12/14 IV 1305 Morphine Sulfate 3 MG Q4 12/14 1400 UNVr IV Morphine Sulfate 3 MG Q1P PRN 12/14 1400 UNVr IV Morphine Sulfate 2 MG Q2P PRN 12/11 1330 DC 12/14 IV 1316 Patient Medication 1 ED ONE ONE 12/14 0930 DC Teaching ED 12/14 0931 Prochlorperazine 5 MG Q6P PRN 12/11 1500 AC IV Scopolamine HBr 1 PAT Q72 12/10 2200 AC 12/13 TOP 0726 Assessment/Plan Hospice Assessment/Recommendations: Mr. Singh is a 77 y.o. male with PMHx of DMT2, HTN, CAD, h/o prostate and colon ca now with retroperitoneal and lung metastatic disease with unknown primary, AASHISH secondary to obstructive uropathy and dehydration, new AF and mild pulmonary edema. Currently in mild distress, moaning and current morphine dose not effective. Schedule morphine 3 mg IV every 4 hours and can have every 1 hour as needed - pain/dyspnea Schedule ativan 0.5 mg IV every 8 hours and continue every 4 hours as needed - anxiety Scopolamine patch on, Robinul as needed for secretions Discussed with family and nursing Problem List: 1. Metastasis 2. AASHISH (acute kidney injury) 3. Hospice care
[2017-12-15 05:56] VITALS: BP 90/62
--- NOTE | 2017-12-15 15:34 | Discharge Summary ---
Visit Information Visit Dates Admission Date: 12/10/17 Discharge Date: 12/15/17 Hospital Course Course Attending Physician: Woodrow Ulloa MD Primary Care Physician: Sukumar Bryant MD Hospital Course: Mr. Singh is a 77 y.o. male with PMHx of DMT2, HTN, CAD, h/o prostate and colon ca now with retroperitoneal and lung metastatic disease with unknown primary, AASHISH secondary to obstructive uropathy and dehydration, new AF and mild pulmonary edema. Initially morphine was scheduled for pain relief and patient was refusing frequency ordered so it was changed to as needed dosing. As patient condition deteriorated and discomfort increased, morphine and ativan were scheduled to relieve pain and anxiety and Mr. Singh passed peacefully with his family at bedside. Allergies: Coded Allergies: cefadroxil (Intermediate, NAUSEA 12/02/17) magnesium (Intermediate, DIARRHEA 12/02/17) Disposition Summary Disposition Principal Diagnosis: Metastatic carcinoma to retroperituneum and lungs, primary site unknown Additional Diagnosis: Acute kidney injury Atrial Fibrillation Pulmonary edema Discharge Disposition: Discharge Instructions General Discharge Information Code Status: Hospice Patient's Diet: N/A Patient's Activity: N/A Follow-Up Instructions/Appts: N/A Copies To: Annette IBARRA,Sukumar Mason
== END 2017-12-15 08:18 | disposition expired | DRG 181 ==
LOC: 2NA 19:28 → ENTRNSPT 12-15 11:14 → EDTRNSPTSTS 12-15 11:15 → EDTRNSPT 12-15 11:15 → CMPTRNSPT 12-15 11:28
DX: C78.00 Secondary malignant neoplasm of unspecified lung (principal); N17.9 Acute kidney failure, unspecified; J81.1 Chronic pulmonary edema; I48.91 Unspecified atrial fibrillation; E86.0 Dehydration; N13.9 Obstructive and reflux uropathy, unspecified; Z51.5 Encounter for palliative care
CPT/HCPCS: 2NAP; J0131; J0780